=== PATIENT | male | born 1950 | race African-American/Black ===

== ENCOUNTER 2016-10-24 18:29 | Emergency (ER) | payer OTHER, BC ==
[2016-10-24 18:35] VITALS: BMI 34.4
--- NOTE | 2016-10-25 | PDOC ---
History of Present Illness - General Chief Complaint: Blurry Vision Stated Complaint: BLURRY VISION Time Seen by Provider: 10/24/16 23:29 History Source: Patient Exam Limitations: No Limitations - History of Present Illness Initial Comments: 10/24/16 23:55 66yo Male patient w/ PmHx: HTN, HLD presents to ED c/o blurred vision in left eye. Patient states symptoms began 4 hours ago. Denies h/a, weakness, CP, Abd pain, n/v/d, fever, back pain, or any other complaints at this time. Last eye exam: reported. Reports wearing corrective lens use for reading. Timing/Duration: 4-6 hours Severity: moderate Modifying Factors: worse with: cold therapy, eating, immobilization, medication , movement, rest, other Associated Symptoms: denies: denies symptoms, chest pain, cough, diaphoresis, fever/chills, headaches, loss of appetite, malaise, nausea/vomiting, rash, seizure, shortness of breath, syncope, weakness, other NIH Stroke Scale - Last Known Well Date/Time & Onset Date Last Known Well: 10/24/16 Time Last Known Well: 16:00 - Initial Evaluation Level of consciousness: Alert Ask patient the month and their age: Answers both correctly Ask patient to open & close eyes; make fist and let go: Obeys both correctly Best gaze (horizontal eye movement): Normal Visual field testing: Partial hemianopia Facial paresis (Show teeth/raise eyebrows/close eyes tight): Normal symmetrical movement Motor Function: Left Arm: Normal Motor Function: Right Arm: Normal (extends arm 90 (or 45) degrees for 10 seconds without drift Motor Function: Left Leg: Normal (extends leg 30 degrees for 5 seconds without drift) Motor Function: Right Leg: Normal (extends leg 30 degrees for 5 seconds without drift) Limb Ataxia: No ataxia Sensory(Use pinprick test arms,legs,trunk,face/side to side): Normal Best language (Describe picture, name items, read sentences): No Aphasia Dysarthria (read several words): Normal articulation Extinction and Inattention: No abnormality - Total Score NIH Stroke Scale Score: 1 Past History - Travel Traveled outside of the country in the last 30 days: No Close contact w/someone who was outside of country & ill: No - Past Medical History Allergies/Adverse Reactions: Allergies Allergy/AdvReac Type Severity Reaction Status Date / Time No Known Allergies Allergy Verified 10/24/16 18:35 HTN: Yes Hypercholesterolemia: Yes - Psycho/Social/Smoking Cessation Hx Suicidal Ideation: No Smoking History: Former smoker Have you smoked in the past 12 months: No Information on smoking cessation initiated: No Hx Alcohol Use: No Drug/Substance Use Hx: No Review of Systems - Review of Systems Able to Perform ROS?: Yes Is the patient limited Syriac proficient: No Constitutional: No: Chills, Fever HEENTM: Yes: Blurred Vision. No: Eye Pain, Tearing, Double Vision, Ear Pain Respiratory: No: Cough, Shortness of Breath, Stridor, Wheezing Cardiac (ROS): No: Chest Pain, Edema, Irregular Heart Rate, Lightheadedness, Palpitations, Chest Tightness ABD/GI: No: Constipated, Diarrhea, Nausea, Vomiting : No: Dysuria, Flank Pain, Hematuria Musculoskeletal: No: Back Pain Integumentary: No: Bruising, Erythema, Rash, Sweating Neurological: No: Headache, Numbness, Seizure, Tremors, Weakness, Ataxia, Dizziness All Other Systems: Reviewed and Negative *Physical Exam - Vital Signs Last Vital Signs Temp Pulse Resp BP Pulse Ox 98.0 F 83 18 150/89 94 L 10/24/16 18:31 10/24/16 18:31 10/24/16 18:31 10/24/16 18:31 10/24/16 18:31 - Physical Exam General Appearance: Yes: Nourished, Appropriately Dressed. No: Apparent Distress, Mild Distress, Moderate Distress, Severe Distress HEENT: positive: EOMI, Normal ENT Inspection, Normal Voice, Symmetrical, TMs Normal, Pharynx Normal, Other (Peripheral eye examination reveal loss of visual field. No eye redness, pain, swelling, discharge or drainage noted. Lt eye sluggish in reacting to light.). negative: ROSALINDA (Left eye sluggish), Pale Conjunctivae, Photophobia, TM Bulging, TM Dull, TM Erythema Neck: positive: Trachea midline, Supple. negative: Lymphadenopathy (R), Lymphadenopathy (L) Respiratory/Chest: positive: Lungs Clear, Normal Breath Sounds. negative: Chest Tender, Respiratory Distress, Accessory Muscle Use, Labored Respiration, Rapid RR Cardiovascular: positive: Regular Rhythm, Regular Rate. negative: Edema, JVD, Murmur Gastrointestinal/Abdominal: positive: Normal Bowel Sounds, Soft. negative: Distended, Guarding, Rebound, Tenderness Musculoskeletal: positive: Normal Inspection. negative: CVA Tenderness Extremity: positive: Normal Capillary Refill, Normal Inspection, Normal Range of Motion Integumentary: positive: Normal Color, Dry, Warm Neurologic: positive: transmitter supervisor II-XII NML intact, Fully Oriented, Alert, Normal Mood/ Affect, Normal Response, Motor Strength 11/17 ED Treatment Course - LABORATORY CBC & Chemistry Diagram: 10/25/16 00:40 10/25/16 00:32 - RADIOLOGY Radiology Studies Ordered: Category Date Time Status HEAD CT WITHOUT CONTRAST [CT] Stat CT Scan 10/24/16 23:43 Ordered *DC/Admit/Observation/Transfer Diagnosis at time of Disposition: Vision blurred - Discharge Dispostion Disposition: HOME Condition at time of disposition: Stable Admit: No - Patient Instructions Printed Discharge Instructions: DI for Visual Field Disturbances Additional Instructions: FOLLOW UP WITH YOUR EXPERIMENTAL TECHNICIAN TOMORROW OR WITHIN 48 HOURS DISCUSSED. RETURN IF SYMPTOMS WORSEN OR ANY CONCERN FOR FURTHER EVALUATION. Print Language: TELUGU
--- NOTE | 2016-10-25 00:19 | PDOC ---
*Physical Exam - Vital Signs Last Vital Signs Temp Pulse Resp BP Pulse Ox 98.0 F 83 18 150/89 94 L 10/24/16 18:31 10/24/16 18:31 10/24/16 18:31 10/24/16 18:31 10/24/16 18:31 ED Treatment Course - LABORATORY CBC & Chemistry Diagram: 10/25/16 00:40 10/25/16 00:32 Medical Decision Making - Medical Decision Making 10/25/16 00:19 agree with care from RITO Little *DC/Admit/Observation/Transfer Diagnosis at time of Disposition: Vision blurred - Discharge Dispostion Disposition: HOME Condition at time of disposition: Stable - Referrals Referrals: Ricky Jennings MD [Primary Care Provider] - - Patient Instructions Printed Discharge Instructions: DI for Visual Field Disturbances Additional Instructions: FOLLOW UP WITH YOUR LANGUAGE PATH TOMORROW OR WITHIN 48 HOURS DISCUSSED. RETURN IF SYMPTOMS WORSEN OR ANY CONCERN FOR FURTHER EVALUATION. Print Language: LAO
[2016-10-25 00:56] LABS: BASOPHIL 1.3 % (0-2.0); EOSINOPHIL 5.3 % (0-4.5); MCH 29.2 pg (25.7-33.7); MCHC 32.6 g/dl (32.0-35.9); MEAN CELL VOLUME 89.8 fl (80-96); NEUTROPHILS 49.5 % (42.8-82.8); PLATELET COUNT 211 K/MM3 (134-434); RDW 14.3 % (11.9-15.9); WHITE BLOOD COUNT 5.3 K/mm3 (4.0-10.0)
[2016-10-25 00:57] LABS: URINE APPEARANCE CLEAR; URINE BILIRUBIN NEGATIVE (NEGATIVE); URINE BLOOD NEGATIVE (NEGATIVE); URINE COLOR YELLOW; URINE GLUCOSE (UA) NEGATIVE (NEGATIVE); URINE KETONE NEGATIVE (NEGATIVE); URINE LEUK ESTERASE NEGATIVE (NEGATIVE); URINE NITRITE NEGATIVE (NEGATIVE); URINE PROTEIN NEGATIVE (NEGATIVE); URINE UROBILINOGEN 2.0 E.U/dl E.U./dl (0.2-1.0)
[2016-10-25 01:38] LABS: INR 1.08 (0.82-1.09); PROTHROMBIN TIME (PATIENT) 11.9 SEC (9.98-11.88)
[2016-10-25 01:41] LABS: ACTIVATED PTT 27.9 SECONDS (26.9-34.4)
[2016-10-25 01:48] LABS: ALBUMIN 3.9 g/dl (3.4-5.0); ALK PHOS 100 U/L (45-117); ANION GAP 10 (8-16); BILIRUBIN,TOTAL 0.3 mg/dL (0.2-1.0); CO2 27 mmol/L (21-32); COCKROFT - GAULT 115.4; CREATININE 0.9 mg/dL (0.7-1.3); GLUCOSE,RANDOM 95 mg/dL (74-106); SGOT/AST 18 U/L (15-37); SGPT/ALT 23 U/L (12-78); TOT PROT 7.3 g/dl (6.4-8.2)
[2016-10-25 06:50] VITALS: BP 140/80; PULSE 79; TEMP 98.2
== END 2016-10-25 04:03 | disposition home or self-care (01) ==
LOC: JER 18:29
DX: H53.8 Other visual disturbances (principal); I10 Essential (primary) hypertension; E78.00 Pure hypercholesterolemia, unspecified
CPT/HCPCS: 36415; 70470-TC; 80053; 81003; 85025; 85610; 85730; 99283-25

== ENCOUNTER 2016-11-30 10:12 | Day surgery (SDC) | payer OTHER, BC ==
[2016-11-29 15:15] VITALS: BMI 32.4
[2016-11-30] MEDS ORDERED: MIDAZOLAM HCL 2 MG/2 ML SINGLE DOSE VIAL ONE (11:24)
[2016-11-30] MEDS ORDERED: ACETAMINOPHEN 500 MG TABLET (FP) ONE (11:26)
[2016-11-30 12:31] VITALS: TEMP 97.9
--- NOTE | 2016-11-30 12:53 | PN ---
Progress Note (short form) - Note Progress Note: ANIA performed today to evaluate for cardiac source of embolism given recent ocular CVA. Full report to follow. Pt tolerated procedure well without complication. No cardiac source of embolism identified. 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 Pt will follow up as outpatient.
[2016-11-30 13:57] VITALS: BP 103/71; PULSE 65
== END 2016-11-30 13:25 | disposition home or self-care (01) ==
LOC: JASU-ENDO 10:12 → JOR 10:12 → JASU-ENDO 13:25
PROVIDERS: ATTEND Internal Medicine Cardiovascular Disease
PROC: B246ZZ4 Ultrasonography of Right and Left Heart, Transesophageal (ICD-10-PCS; principal; 2016-11-30 11:30)
DX: I63.9 Cerebral infarction, unspecified (principal)
CPT/HCPCS: 93312; 93325

== ENCOUNTER 2019-03-05 14:21 | Inpatient (IN) | payer OTHER, BC ==
--- NOTE | 2019-03-05 14:29 | PDOC ---
Rapid Medical Evaluation Chief Complaint: Urinary Problem Time Seen by Provider: 03/05/19 14:26 Medical Evaluation: Allergies Allergy/AdvReac Type Severity Reaction Status Date / Time No Known Allergies Allergy Verified 10/24/16 18:35 03/05/19 14:26 I have performed a brief in-person evaluation of this patient. The patient presents with a chief complaint of:h/o HPL, HTN on benica report low BPs which he told PCP and reduce dosage of meds. pt also report hematuria. Pt also report dysuria. Denies dizziness, lightheadedness, fever, chills, N/V Pertinent physical exam findings: A&O x 3 in NAD I have ordered the following: UA, UCx, CBC, CMP The patient will proceed to the ED for further evaluation. Discharge Disposition - Diagnosis Hematuria Qualifiers: Hematuria type: unspecified type Qualified Code(s): R31.9 - Hematuria, unspecified Hypotension Qualifiers: Hypotension type: unspecified hypotension type Qualified Code(s): I95.9 - Hypotension, unspecified - Discharge Dispostion Condition at time of disposition: Stable - Referrals - Patient Instructions - Post Discharge Activity
[2019-03-05 15:29] LABS: HEMATOCRIT 31.7 % (35.4-49); MCH 27.2 pg (25.7-33.7); MCHC 31.6 g/dl (32.0-35.9); MEAN PLT VOLUME 6.7 fl (7.5-11.1); PLATELET COUNT 778 K/MM3 (134-434); RBC 3.69 M/mm3 (4.00-5.60); RDW 15.1 % (11.9-15.9); WHITE BLOOD COUNT 13.4 K/mm3 (4.0-10.0)
[2019-03-05 15:58] LABS: ALBUMIN 2.7 g/dl (3.4-5.0); BILIRUBIN,TOTAL 0.5 mg/dL (0.2-1); BLOOD UREA NITROGEN 42.6 mg/dL (7-18); CALCIUM 9.7 mg/dL (8.5-10.1); CREATININE 2.6 mg/dL (0.55-1.3); TOT PROT 7.7 g/dl (6.4-8.2)
[2019-03-05] MEDS ORDERED: SODIUM CHLORIDE 1,000 ML IV STA (17:12)
[2019-03-05] MEDS ORDERED: SODIUM CHLORIDE 0.9% 500 ML INFUS.BAG IV ONE (17:16)
--- NOTE | 2019-03-05 17:16 | PDOC ---
History of Present Illness - General Chief Complaint: Urinary Problem Stated Complaint: BLOOD IN URINE, LOW BP Time Seen by Provider: 03/05/19 14:26 - History of Present Illness Initial Comments: 03/05/19 17:08 68 y/o M with hx of CVA,HTN and bilateral renal cyst presents to the ED with 3- 4 days of dysuria and hematuria .He denies straining during voiding but sees blood in the toilet bowl.He has had no associated abdominal pain,penile discharge/pain /recent sexual activity, fevers, chills or sick contacts. Past History - Past Medical History Allergies/Adverse Reactions: Allergies Allergy/AdvReac Type Severity Reaction Status Date / Time No Known Allergies Allergy Verified 03/05/19 14:28 Home Medications: Ambulatory Orders Metoprolol Succinate [Toprol XL -] 25 mg PO DAILY 10/25/16 Rosuvastatin Calcium [Crestor] 10 mg PO HS 10/25/16 Aspirin Coated [Ecotrin -] 325 mg PO DAILY 11/29/16 Olmesartan Medoxomil [Benicar -] 20 mg PO DAILY 11/29/16 Amlodipine Besylate [Norvasc -] 5 mg PO DAILY 03/05/19 Hydrochlorothiazide 12.5 mg PO DAILY 03/05/19 COPD: No Diabetes: Yes (BORDERLINE - NO MED) HTN: Yes Hypercholesterolemia: Yes - Surgical History Abdominal Surgery: Yes (REPAIR OF UMBILICAL HERNIA) Orthopedic Surgery: Yes (LT KNEE ARTHROSCOPY) - Immunization History Immunization Up to Date: No - Suicide/Smoking/Psychosocial Hx Smoking History: Never smoked Have you smoked in the past 12 months: No If you are a former smoker, when did you quit?: 35 YRS AGO Information on smoking cessation initiated: No Hx Alcohol Use: No Drug/Substance Use Hx: No Review of Systems - Review of Systems Constitutional: No: Chills, Fever HEENTM: No: Eye Pain, Blurred Vision Respiratory: No: Cough, Shortness of Breath Cardiac (ROS): No: Chest Pain ABD/GI: No: Abdominal Distended : Yes: Symptoms Reported Musculoskeletal: No: Back Pain Neurological: No: Headache, Numbness *Physical Exam - Vital Signs Last Vital Signs Temp Pulse Resp BP Pulse Ox 97.8 F 78 17 89/55 L 100 03/05/19 14:26 03/05/19 14:26 03/05/19 14:26 03/05/19 14:26 03/05/19 14:26 - Physical Exam General Appearance: Yes: Nourished, Appropriately Dressed. No: Apparent Distress HEENT: positive: Normal Voice. negative: Scleral Icterus (R), Scleral Icterus ( L) Neck: positive: Trachea midline, Supple. negative: Tender Respiratory/Chest: positive: Lungs Clear, Normal Breath Sounds. negative: Chest Tender, Respiratory Distress, Accessory Muscle Use, Rales, Wheezing Cardiovascular: positive: Regular Rhythm, Regular Rate, S1, S2. negative: Edema , JVD Gastrointestinal/Abdominal: positive: Normal Bowel Sounds, Soft, Protuberent. negative: Tenderness Extremity: positive: Normal Capillary Refill, Normal Inspection, Normal Range of Motion Integumentary: positive: Normal Color, Dry, Warm Neurologic: positive: Fully Oriented, Alert, Normal Mood/Affect ED Treatment Course - LABORATORY CBC & Chemistry Diagram: 03/18/19 07:45 03/18/19 07:45 - ADDITIONAL ORDERS Additional order review: Laboratory Results 03/05/19 15:12 Sodium 137 Potassium 5.0 Chloride 102 Carbon Dioxide 22 Anion Gap 13 BUN 42.6 H Creatinine 2.6 H Est GFR (CKD-EPI)AfAm 28.31 Est GFR (CKD-EPI)NonAf 24.42 Random Glucose 100 Calcium 9.7 Total Bilirubin 0.5 AST 22 ALT 37 Alkaline Phosphatase 105 Total Protein 7.7 Albumin 2.7 L 03/05/19 15:12 RBC 3.69 L MCV 86.0 MCHC 31.6 L RDW 15.1 MPV 6.7 L D Medical Decision Making - Medical Decision Making 03/05/19 17:41 68 y/o M with hx of CVA & HTN presents to the ED with 3-4 days of dysuria and hematuria hepatic cysts, 4.1 cm right renal cyst and 2.1 cm left renal cyst which had increased from 2.8cm and 2.1 cm respectively Labs/Imaging/Meds UA, urine culture, cbc, cmp, renal u/s,cxr, EKG Meds: IV normal saline UA: Calcium oxalate stones, 3+blood, 3+ leukocyte esterase cbc: elevated white count 13.2 EKG: NSR, normal EKG no ST elevations vent rate 67 bpm VA interval 178ms qrs duration 86ms qt/qtc 412/435ms CXR Renal U/S In comparison to an MRI Study of 04/25/2018 interval development of mild left hydronephrosis is noted CT evaluation is suggested there is no right hydronephrosis A nonspecific 1.5 cm right renal lower pole intracortical enhancing lesion described on the 2018 MRI study cannot be appreciated on sonography. Correlation with follow up contrast enhanced multiphase MRI/CT is suggested bilateral simple cortical cysts Admitting team (keerthi) microblogged at 6:43 pm 03/05/19 19:18 03/07/19 02:11 *DC/Admit/Observation/Transfer Diagnosis at time of Disposition: Hematuria Qualifiers: Hematuria type: unspecified type Qualified Code(s): R31.9 - Hematuria, unspecified Hypotension Qualifiers: Hypotension type: unspecified hypotension type Qualified Code(s): I95.9 - Hypotension, unspecified - Discharge Dispostion Condition at time of disposition: Stable - Referrals - Patient Instructions - Post Discharge Activity
--- NOTE | 2019-03-05 18:04 | PDOC ---
Documentation entered by Madeline Stahl SCRIBE, acting as scribe for David Tom MD. David Tom MD: This documentation has been prepared by the Maribeth peña Sammi, SCRIBE, under my direction and personally reviewed by me in its entirety. I confirm that the documentation accurately reflects all work, treatment, procedures, and medical decision making performed by me. Attending Attestation - Resident Resident Name: Nelson Carrera - ED Attending Attestation I have performed the following: I have examined & evaluated the patient, The case was reviewed & discussed with the resident, I agree w/resident's findings & plan, Exceptions are as noted - HPI HPI: 03/05/19 17:13 The patient is a 68 year old male, with a significant PMH of HTN, HLD, CVA, who presents to the emergency department for evaluation of several days of dysuria and hematuria. Pt states that his urine has been darker than usual. Denies any bright red blood or clots. Pt also notes that he has slight burning towards the end of his stream. Denies abdominal pain. Denies flank pain. Denies F/C. He denies any other complaints at this time. Allergies: NKA PCP: Ricky Jennings Cardio: Cruz - Physicial Exam PE: 03/05/19 18:06 "GENERAL: Awake, alert, and fully oriented, in no acute distress. HEAD: No signs of trauma EYES: PERRLA, EOMI, sclera anicteric, conjunctiva clear ENT: Auricles normal inspection, hearing grossly normal, nares patent, oropharynx clear without exudates. Moist mucosa NECK: Nontender, no stepoffs, Normal ROM, supple, no lymphadenopathy, JVD, or masses LUNGS: Breath sounds equal, clear to auscultation bilaterally. No wheezes, and no crackles HEART: Regular rate and rhythm, normal S1 and S2, no murmurs, rubs or gallops ABDOMEN: Soft, nontender, normoactive bowel sounds. No guarding, no rebound. No masses EXTREMITIES: Normal range of motion, no edema. No clubbing or cyanosis. No cords, erythema, or tenderness NEUROLOGICAL: Cranial nerves II through XII intact. 5/5 strength and sensation in all extremities, Normal speech, normal gait, normal cerebellar function SKIN: Warm, Dry, normal turgor, no rashes or lesions noted. - Medical Decision Making 03/05/19 18:06 68 M with dysuria and possible hematuria. Pt noted to be hypotensive in ED but states that his BP has been running low recently. He is having his BP meds titrated by his primary. Denies lightheadedness/dizziness/CP/SOB/palpitations. - Labs, UA - IV fluids 03/05/19 18:11 Labs notable for SANDY, Cr 1.0 -> 2.6 Likely pre-renal Will continue IVF 03/05/19 18:34 UA consistent with UTI Will start ceftriaxone
[2019-03-05 18:23] LABS: URINE APPEARANCE TURBID; URINE COLOR DK YELLOW
[2019-03-05 18:24] LABS: URINE BILIRUBIN SMALL (NEGATIVE); URINE GLUCOSE (UA) NEGATIVE (NEGATIVE); URINE KETONE TRACE (NEGATIVE)
[2019-03-05 18:25] LABS: URINE PROTEIN 2+ (NEGATIVE)
[2019-03-05 18:26] LABS: URINE LEUK ESTERASE 3+ (NEGATIVE); URINE NITRITE NEGATIVE (NEGATIVE)
[2019-03-05 18:28] LABS: EPI CELLS 92.6 /HPF (0-5/HPF); HYALINE CASTS 883.57 /lpf (0-8); URINE BACTERIA 429.4 /hpf (NEGATIVE); URINE RBC 106.3 /hpf (0-4); URINE WBC 4809.8 /hpf (0-5)
[2019-03-05 18:29] LABS: URINE CRYSTALS CALCIUM OXALATE /hpf
[2019-03-05] MEDS ORDERED: CEFTRIAXONE 1,000 MG in DEXTROSE 5%-WATER - 50 ML IVPB ONE (18:34)
[2019-03-05] MEDS ORDERED: CEFTRIAXONE 1 GM/50 ML BAG ONE (19:06)
[2019-03-05] MEDS ORDERED: ACETAMINOPHEN 325 MG TABLET (FP) PO PRN (19:35)
[2019-03-05] MEDS ORDERED: ACETAMINOPHEN 325 MG TABLET (FP) ONE (20:09)
--- NOTE | 2019-03-05 20:19 | HP ---
CHIEF COMPLAINT: Dysuria PCP: Dr. Ricky Jennings Inorganic Chemical Technician: Dr. Somers Wireless Sales Associate: Dr. Flores GI: Dr. Hidalgo HISTORY OF PRESENT ILLNESS: Patient is a 68 year old male with PMH of HTN, HLD, CVA who presents with 3 days of dysuria. Pt complains of burning with urination and associated urgency and frequency. He has also noticed darker discoloration in his urine but denies bright red blood or clots. Pt denies fever, chills, SOB, abd or flank pain. He denies a hx of frequent UTIs or stones. Pt follows up regularly with his PCP Dr. Jennings and states that his BP has recently been low. His Benicar medication was decreased from 40mg to 20mg one week ago, but he has continued all other medications as prescribed. No lightheadedness or palpitations. Pt states that his last colonoscopy and EGD were in Jun/Jul and were unremarkable. He denies any changes in stool, other than occasional constipation at baseline, but no melena, diarrhea, or bloating. He also recently saw his user experience architect, Dr. Flroes and carotid US and EKGs were normal. ER course was notable for: (1) UA: turbid, trace ketones, 3+ blood, 3+ LE, 4809 WBC, 883 casts, calcium oxalate crystals, 429.4 bacteria (2) Given 1gm ceftriaxone (3) Recent Travel: denies PAST MEDICAL HISTORY: HTN HLD CVA (2 years ago, residual L vision loss) PAST SURGICAL HISTORY: Umbilical hernia repair Knee repair Social History: Smoking: quit 40 years ago Alcohol: denies Drugs: denies Family History: Grandmother: Aortic aneurysm Grandfather: [place] Allergies No Known Allergies Allergy (Verified 03/05/19 14:28) HOME MEDICATIONS: Home Medications Medication Instructions Recorded Metoprolol Succinate [Toprol XL -] 25 mg PO DAILY 10/25/16 Rosuvastatin Calcium [Crestor] 10 mg PO HS 10/25/16 Aspirin Coated [Ecotrin -] 325 mg PO DAILY 11/29/16 Olmesartan Medoxomil [Benicar -] 20 mg PO DAILY 11/29/16 Amlodipine Besylate [Norvasc -] 5 mg PO DAILY 03/05/19 Hydrochlorothiazide 12.5 mg PO DAILY 03/05/19 REVIEW OF SYSTEMS CONSTITUTIONAL: Absent: fever, chills, diaphoresis, generalized weakness, malaise, loss of appetite, weight change HEENT: Absent: rhinorrhea, nasal congestion, throat pain, throat swelling, difficulty swallowing, mouth swelling, ear pain, eye pain, visual changes CARDIOVASCULAR: Absent: chest pain, syncope, palpitations, irregular heart rate, lightheadedness , peripheral edema RESPIRATORY: Absent: cough, shortness of breath, dyspnea with exertion, orthopnea, wheezing, stridor, hemoptysis GASTROINTESTINAL: Absent: abdominal pain, abdominal distension, nausea, vomiting, diarrhea, constipation, melena, hematochezia GENITOURINARY: dysuria, frequency, urgency, hematuria Absent: hesitancy, flank pain, genital pain MUSCULOSKELETAL: Absent: myalgia, arthralgia, joint swelling, back pain, neck pain SKIN: Absent: rash, itching, pallor HEMATOLOGIC/IMMUNOLOGIC: Absent: easy bleeding, easy bruising, lymphadenopathy, frequent infections ENDOCRINE: Absent: unexplained weight gain, unexplained weight loss, heat intolerance, cold intolerance NEUROLOGIC: Absent: headache, focal weakness or paresthesias, dizziness, unsteady gait, seizure, mental status changes, bladder or bowel incontinence PSYCHIATRIC: Absent: anxiety, depression, suicidal or homicidal ideation, hallucinations. PHYSICAL EXAMINATION Vital Signs - 24 hr 03/05/19 03/05/19 14:26 19:05 Temperature 97.8 F Pulse Rate 78 Respiratory 17 Rate Blood Pressure 89/55 L Blood Pressure 91/58 L [Left Arm] O2 Sat by Pulse 100 Oximetry (%) GENERAL: Awake, alert, and fully oriented, in no acute distress. HEAD: Normal with no signs of trauma. EYES: Pupils equal, round and reactive to light, extraocular movements intact, sclera anicteric, conjunctiva clear. No lid lag. EARS, NOSE, THROAT: Ears normal, nares patent, oropharynx clear without exudates. Moist mucous membranes. NECK: Normal range of motion, supple without lymphadenopathy, JVD, or masses. LUNGS: Breath sounds equal, clear to auscultation bilaterally. No wheezes, and no crackles. No accessory muscle use. HEART: Regular rate and rhythm, normal S1 and S2 without murmur, rub or gallop. ABDOMEN: Soft, nontender, not distended, normoactive bowel sounds, no guarding, no rebound, no masses. No hepatomegaly or splenomegaly. MUSCULOSKELETAL: Normal range of motion at all joints. No bony deformities or tenderness. No CVA tenderness. UPPER EXTREMITIES: 2+ pulses, warm, well-perfused. No cyanosis. No clubbing. No peripheral edema. LOWER EXTREMITIES: 2+ pulses, warm, well-perfused. No calf tenderness. No peripheral edema. NEUROLOGICAL: Cranial nerves II-XII intact, but L vision loss. Normal speech. Normal gait. PSYCHIATRIC: Cooperative. Good eye contact. Appropriate mood and affect. SKIN: Warm, dry, normal turgor, no rashes or lesions noted, normal capillary refill. Laboratory Results - last 24 hr CBC, BMP 03/05/19 15:12 03/05/19 15:12 Urine Test Results Urine Color Dk yellow Urine Appearance Turbid Urine pH 5.0 (5.0-8.0) Ur Specific [place] 1.025 (1.010-1.035) Urine Protein 2+ (NEGATIVE) H Urine Glucose (UA) Negative (NEGATIVE) Urine Ketones Trace (NEGATIVE) H Urine Blood 3+ (NEGATIVE) H Urine Nitrite Negative (NEGATIVE) Urine Bilirubin Small (NEGATIVE) Ur Leukocyte Esterase 3+ (NEGATIVE) H ASSESSMENT/PLAN: Patient is a 68 year old male with PMH of HTN, HLD, CVA who presents with 3 days of dysuria. Pt complains of burning with urination and associated urgency and frequency. #UTI UA: turbid, trace ketones, 3+ blood, 3+ LE, 4809 WBC, 883 casts, calcium oxalate crystals, 429.4 bacteria Renal US: mild L hydronephrosis. Nonspecific 1.5cm R renal lower pole intracortical enhancing lesion cannot be appreciated CTAP: left psoas is thickened, multiple gas bubbles within, possibly infected or due to blood. Distal L ureter is engulfed in psoas, possibly causing renal obstruction. Sigmoid diverticulosis. Giving 1gm ceftriaxone, as well as 1gm merepenem for anaerobic coverage in case infection coming from diverticulitis F/u urology (Dr. Huizar), gen-surg (Dr. Reyes), and ID (Dr. Flores) consultation F/u urine cx Tylenol prn for pain/fever #SANDY BUN: 42.6, Cr: 2.6. Per pt, baseline Cr is poor (do not have definitive values) Likely post-obstructive, given mild L hydronephrosis vs CKD, will obtain prior values from PCP Hydrate with IV NS @ 100ml/hr Cont to monitor kidney function #Normocytic anemia Hgb: 10, Hct: 31.7 Iron: 29, TIBC: 158, ferritin: 1238, likely 2/2 chronic disease vs iron deficiency Pt reports recent colonoscopy and EGD have been unremarkable. Given CT findings, should obtain official results of these studies in am. Denies any lightheadedness, headaches, SOB, vomiting, changes in stool F/u stool guaiac #Thrombocytosis Platelet count: 778 Likely 2/2 infection and acute/sub-acute anemia F/u blood smear #HTN BP: 93/62, pt reports he has recently had low BP at baseline Benicare medication is being titrated down by PCP Dr. Jennings Pt takes norvasc 5mg daily, hydrochlorothiazide 12.5mg daily, toprol 25mg daily. Will hold meds due to hypotension/borderline sepsis #HLD Cont home meds: crestor 10mg HS #FEN IV NS @ 100ml/hr NPO, pending surgery and urology consultations #DVT ppx SCDs #Dispo Monitor on med-surg Visit type - Emergency Visit Emergency Visit: Yes ED Registration Date: 03/05/19 Care time: The patient presented to the Emergency Department on the above date and was hospitalized for further evaluation of their emergent condition. - New Patient This patient is new to me today: Yes Date on this admission: 03/10/19 - Critical Care Critical Care patient: No ATTENDING PHYSICIAN STATEMENT I saw and evaluated the patient. I reviewed the resident's note and discussed the case with the resident. I agree with the resident's findings and plan as documented. SUBJECTIVE: OBJECTIVE: ASSESSMENT AND PLAN:
[2019-03-05] MEDS: SODIUM CHLORIDE 1,000 ML IV SCH (21:00)
--- NOTE | 2019-03-05 23:31 | PN ---
Teaching Attending Note Name of Resident: Izabella Herman ATTENDING PHYSICIAN STATEMENT I saw and evaluated the patient. I reviewed the resident's note and discussed the case with the resident. I agree with the resident's findings and plan as documented. Seen and examined; please refer to resident note for further historical information. Briefly, this is a 68 y/o male presenting with suspected sepsis from likely urinary source; mild L-hydro noted on renal US with calcium oxalate crystals increases suspicion of obstructing stone. CT pending. R-sided renal finding on prior MRI not seen today. Initially borderline BP but without tachycardia; non-toxic appearing. No initial lactate. Monitored on the floor on medicine service; baseline CKD stated with Cr unknown. 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 If obstructive uropathy with infection will consult ID given abx choice and uro for potential procedure. VS, labs, imaging reviewed NAD, AAO, resting in bed Some L-sided discomfort to fist percussion, nondistended, +BS RRR s1/2 no mgr Lungs CTAB, w/ sym exp CN2-12 wnl, no fnd Normal mood, appropriate behavior EKG reviewed, imaging discussed per HPI. ASSESSMENT AND PLAN: Patient presents with dysuria/hematuria found to have L-hydro on intial US with elevated creatinine; CT pending. On meropenem, elucidating baseline Cr. He has either hemorrhagic cystitis vs. obstructing stone vs. other. # UTI [+UA w/ dysuria, hematuria (r/o infected stone vs. hemorrhagic cystitis, etc.) ] # L-sided hydro, r/o obstructive uropathy # CKD vs. SANDY 2/2 obstruction vs. other # Hx CVA
[2019-03-05] MEDS ORDERED: MEROPENEM 1 GM in DEXTROSE 5%-WATER 100 ML IVPB ONE (23:42)
[2019-03-06] MEDS ORDERED: MEROPENEM 1 GM VIAL (RESTRICTED TO ID) IVPB ONE (00:27)
[2019-03-06] MEDS ORDERED: DEXTROSE 5%-WATER 100 ML IVPB ONE (00:27)
[2019-03-06 02:28] LABS: IRON SERUM 20 ug/dL (50-175); TOTAL IRON BINDING CAPACITY 150 ug/dL (250-450)
[2019-03-06 06:21] LABS: BASO % 0.9 % (0-2.0); EOS % 2.3 % (0-4.5); HEMATOCRIT 25.3 % (35.4-49); HEMOGLOBIN 8.2 GM/dL (11.7-16.9); LYMPH % 14.5 % (8-40); MCH 27.8 pg (25.7-33.7); MCHC 32.4 g/dl (32.0-35.9); MEAN CELL VOLUME 85.8 fl (80-96); MEAN PLT VOLUME 6.3 fl (7.5-11.1); MONO % 7.2 % (3.8-10.2); NEUT % 75.1 % (42.8-82.8); PLATELET COUNT 557 K/MM3 (134-434); RBC 2.95 M/mm3 (4.00-5.60); WHITE BLOOD COUNT 9.2 K/mm3 (4.0-10.0)
[2019-03-06 06:27] LABS: INR 1.38 (0.83-1.09); PROTHROMBIN TIME (PATIENT) 16.3 SEC (9.7-13.0)
[2019-03-06 07:36] LABS: ALBUMIN 1.9 g/dl (3.4-5.0); BILIRUBIN,TOTAL 0.3 mg/dL (0.2-1); BLOOD UREA NITROGEN 39.8 mg/dL (7-18); CALCIUM 8.3 mg/dL (8.5-10.1); POTASSIUM 4.5 mmol/L (3.5-5.1); TOT PROT 5.7 g/dl (6.4-8.2)
--- NOTE | 2019-03-06 10:06 | PN ---
Physical Exam: SUBJECTIVE: Patient seen and examined. He has no complaints. OBJECTIVE: Vital Signs Period Temp Pulse Resp BP Sys/Zuniga Pulse Ox Last 24 Hr 97.8 F-97.9 F 62-78 16-18 89-117/55-63 100 GENERAL: The patient is awake, alert, and fully oriented, in no acute distress. LUNGS: Breath sounds equal, clear to auscultation bilaterally, no wheezes, no crackles, no accessory muscle use. HEART: Regular rate and rhythm, S1, S2 without murmur, rub or gallop. ABDOMEN: Soft, nontender, nondistended, normoactive bowel sounds, no guarding, no rebound, no hepatosplenomegaly, no masses. BACK: No CVA tenderness. EXTREMITIES: 2+ pulses, warm, well-perfused, no edema. Laboratory Results - last 24 hr 03/05/19 03/05/19 03/05/19 15:12 15:12 16:51 WBC 13.4 H RBC 3.69 L Hgb 10.0 L Hct 31.7 L D MCV 86.0 MCH 27.2 MCHC 31.6 L RDW 15.1 Plt Count 778 H D MPV 6.7 L D Absolute Neuts (auto) Neutrophils % Lymphocytes % Monocytes % Eosinophils % Basophils % Nucleated RBC % PT with INR INR Sodium 137 Potassium 5.0 Chloride 102 Carbon Dioxide 22 Anion Gap 13 BUN 42.6 H Creatinine 2.6 H Est GFR (CKD-EPI)AfAm 28.31 Est GFR (CKD-EPI)NonAf 24.42 Random Glucose 100 Lactic Acid Calcium 9.7 Iron 29 L TIBC 158 L Iron Saturation 18 Unsaturated IBC 129 L Ferritin 1238.0 H Total Bilirubin 0.5 AST 22 ALT 37 Alkaline Phosphatase 105 Total Protein 7.7 Albumin 2.7 L Urine Color Dk yellow Urine Appearance Turbid Urine pH 5.0 Ur Specific [place] 1.025 Urine Protein 2+ H Urine Glucose (UA) Negative Urine Ketones Trace H Urine Blood 3+ H Urine Nitrite Negative Urine Bilirubin Small Urine Urobilinogen 1.0 Ur Leukocyte Esterase 3+ H Urine WBC (Auto) 4809.8 Urine RBC (Auto) 106.3 Urine Casts (Auto) 883.57 U Epithel Cells (Auto) 92.6 U Sm Round Cell (Auto) Wbc present Urine Crystals (Auto) Calcium oxalate Urine Bacteria (Auto) 429.4 Blood Type Antibody Screen 03/05/19 03/05/19 03/06/19 22:30 22:30 06:00 WBC 9.2 RBC 2.95 L Hgb 8.2 L Hct 25.3 L D MCV 85.8 MCH 27.8 MCHC 32.4 RDW 15.0 Plt Count 557 H D MPV 6.3 L Absolute Neuts (auto) 6.9 Neutrophils % 75.1 D Lymphocytes % 14.5 D Monocytes % 7.2 Eosinophils % 2.3 Basophils % 0.9 Nucleated RBC % 0 PT with INR INR Sodium Potassium Chloride Carbon Dioxide Anion Gap BUN Creatinine Est GFR (CKD-EPI)AfAm Est GFR (CKD-EPI)NonAf Random Glucose Lactic Acid Calcium Iron 20 L TIBC 150 L Iron Saturation 13 L Unsaturated IBC 130 L Ferritin 1030.5 H Total Bilirubin AST ALT Alkaline Phosphatase Total Protein Albumin Urine Color Urine Appearance Urine pH Ur Specific [place] Urine Protein Urine Glucose (UA) Urine Ketones Urine Blood Urine Nitrite Urine Bilirubin Urine Urobilinogen Ur Leukocyte Esterase Urine WBC (Auto) Urine RBC (Auto) Urine Casts (Auto) U Epithel Cells (Auto) U Sm Round Cell (Auto) Urine Crystals (Auto) Urine Bacteria (Auto) Blood Type Antibody Screen 03/06/19 03/06/19 03/06/19 06:00 06:00 06:00 WBC RBC Hgb Hct MCV MCH MCHC RDW Plt Count MPV Absolute Neuts (auto) Neutrophils % Lymphocytes % Monocytes % Eosinophils % Basophils % Nucleated RBC % PT with INR 16.30 H INR 1.38 H Sodium 141 Potassium 4.5 Chloride 109 H Carbon Dioxide 24 Anion Gap 8 BUN 39.8 H Creatinine 2.0 H Est GFR (CKD-EPI)AfAm 38.87 Est GFR (CKD-EPI)NonAf 33.54 Random Glucose 81 Lactic Acid 0.8 Calcium 8.3 L Iron TIBC Iron Saturation Unsaturated IBC Ferritin Total Bilirubin 0.3 AST 13 L ALT 24 Alkaline Phosphatase 77 Total Protein 5.7 L Albumin 1.9 L Urine Color Urine Appearance Urine pH Ur Specific [place] Urine Protein Urine Glucose (UA) Urine Ketones Urine Blood Urine Nitrite Urine Bilirubin Urine Urobilinogen Ur Leukocyte Esterase Urine WBC (Auto) Urine RBC (Auto) Urine Casts (Auto) U Epithel Cells (Auto) U Sm Round Cell (Auto) Urine Crystals (Auto) Urine Bacteria (Auto) Blood Type Antibody Screen 03/06/19 06:00 WBC RBC Hgb Hct MCV MCH MCHC RDW Plt Count MPV Absolute Neuts (auto) Neutrophils % Lymphocytes % Monocytes % Eosinophils % Basophils % Nucleated RBC % PT with INR INR Sodium Potassium Chloride Carbon Dioxide Anion Gap BUN Creatinine Est GFR (CKD-EPI)AfAm Est GFR (CKD-EPI)NonAf Random Glucose Lactic Acid Calcium Iron TIBC Iron Saturation Unsaturated IBC Ferritin Total Bilirubin AST ALT Alkaline Phosphatase Total Protein Albumin Urine Color Urine Appearance Urine pH Ur Specific [place] Urine Protein Urine Glucose (UA) Urine Ketones Urine Blood Urine Nitrite Urine Bilirubin Urine Urobilinogen Ur Leukocyte Esterase Urine WBC (Auto) Urine RBC (Auto) Urine Casts (Auto) U Epithel Cells (Auto) U Sm Round Cell (Auto) Urine Crystals (Auto) Urine Bacteria (Auto) Blood Type A POSITIVE Antibody Screen Negative Active Medications Generic Name Dose Route Start Last Admin Trade Name Freq PRN Reason Stop Dose Admin Acetaminophen 650 mg 03/05/19 19:35 03/05/19 20:15 Tylenol - PO 650 mg Q4H PRN Administration PAIN OR FEVER Sodium Chloride 1,000 mls @ 125 mls/hr 03/05/19 19:15 03/05/19 21:00 Normal Saline - IV 125 mls/hr ASDIR JESSIKA Administration ASSESSMENT/PLAN: This is a 68 year old man with a history of HTN, hyperlipidemia, CVA who presented to the ED with dysuria, urinary urgency and frequency. 1. UTI - Continue ceftriaxone - Follow-up urine culture 2. Acute kidney injury - Likely secondary to left ureter obstruction with left hydronephrosis - IV fluid - Monitor BUN, creatinine - Urology consult 3. Anemia - Iron studies consistent with chronic illness - Monitor hemoglobin 4. Thrombocytosis - Likely reactive - Improving - Monitor platelet count 5. HTN - BP meds held secondary to hypotension 6. Hyperlipidemia 7. 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 - New Patient This patient is new to me today: Yes Date on this admission: 03/06/19 - Critical Care Critical Care patient: No - Discharge Referral Referred to [facility] No
--- NOTE | 2019-03-06 10:35 | CON.GU ---
Consult Consult Specialty:: Reason for Consultation:: L hydronephrosis - History of Present Illness Chief Complaint: dysuria History of Present Illness: 68 year old male with PMH of HTN, HLD, CVA who presents with 3 days of dysuria. Pt complains of burning with urination and associated urgency and frequency. He has also noticed darker discoloration in his urine but denies bright red blood or clots. Pt denies fever, chills, SOB, abd or flank pain. He denies a hx of frequent UTIs or stones. Pt follows up regularly with his PCP Dr. Jennings and states that his BP has recently been low. His Benicar medication was decreased from 40mg to 20mg one week ago, but he has continued all other medications as prescribed. No lightheadedness or palpitations. Pt states that his last colonoscopy and EGD were in Jun/Jul and were unremarkable. He denies any changes in stool, other than occasional constipation at baseline, but no melena, diarrhea, or bloating. 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 Flores and carotid US and EKGs were normal. cons req ER course was notable for: (1) UA: turbid, trace ketones, 3+ blood, 3+ LE, 4809 WBC, 883 casts, calcium oxalate crystals, 429.4 bacteria (2) Given 1gm ceftriaxone (3) Recent Travel: denies PAST MEDICAL HISTORY: HTN HLD CVA (2 years ago, residual L vision loss) PAST SURGICAL HISTORY: Umbilical hernia repair Knee repair Social History: Smoking: quit 40 years ago Alcohol: denies Drugs: denies Family History: Grandmother: Aortic aneurysm Grandfather: [place] Allergies No Known Allergies Allergy (Verified 03/05/19 14:28) - History Source History Provided By: Patient, Medical Record Limitations to Obtaining History: No Limitations - Alcohol/Substance Use Hx Alcohol Use: No - Smoking History Smoking history: Never smoked Have you smoked in the past 12 months: No If you are a former smoker, when did you quit?: 35 YRS AGO Home Medications - Allergies Allergies/Adverse Reactions: Allergies Allergy/AdvReac Type Severity Reaction Status Date / Time No Known Allergies Allergy Verified 03/05/19 14:28 - Home Medications Home Medications: Ambulatory Orders Metoprolol Succinate [Toprol XL -] 25 mg PO DAILY 10/25/16 Rosuvastatin Calcium [Crestor] 10 mg PO HS 10/25/16 Aspirin Coated [Ecotrin -] 325 mg PO DAILY 11/29/16 Olmesartan Medoxomil [Benicar -] 20 mg PO DAILY 11/29/16 Amlodipine Besylate [Norvasc -] 5 mg PO DAILY 03/05/19 Hydrochlorothiazide 12.5 mg PO DAILY 03/05/19 Review of Systems - Review of Systems Genitourinary: reports: Dysuria, Flank Pain Physical Exam- Vital Signs: Vital Signs Temperature 97.8 F 03/06/19 05:25 Pulse Rate 62 03/06/19 05:25 Respiratory Rate 18 03/06/19 05:25 Blood Pressure 94/58 L 03/06/19 05:25 O2 Sat by Pulse Oximetry (%) 100 03/05/19 14:26 Labs: CBC, BMP 03/06/19 06:00 03/06/19 06:00 Imaging - Results Cat Scan: Report Reviewed Ultrasound: Report Reviewed Problem List - Problems (1) Hydronephrosis Assessment/Plan: cystoscopy, cystogram, L JJ stent insertion Code(s): N13.30 - UNSPECIFIED HYDRONEPHROSIS (2) UTI (urinary tract infection) Assessment/Plan: ur cx, iv rocephin Code(s): N39.0 - URINARY TRACT INFECTION, SITE NOT SPECIFIED (3) Psoas abscess, left Code(s): K68.12 - PSOAS MUSCLE ABSCESS (4) Leukocytosis Code(s): D72.829 - ELEVATED WHITE BLOOD CELL COUNT, UNSPECIFIED (5) SANDY (acute kidney injury) Code(s): N17.9 - ACUTE KIDNEY FAILURE, UNSPECIFIED
--- NOTE | 2019-03-06 11:39 | EKG ---
Test Reason : Blood Pressure : / mmHG Vent. Rate : 067 BPM Atrial Rate : 067 BPM P-R Int : 178 ms QRS Dur : 086 ms QT Int : 412 ms P-R-T Axes : 035 002 017 degrees QTc Int : 435 ms NORMAL SINUS RHYTHM NORMAL ECG WHEN COMPARED WITH ECG OF 15-MAY-2011 02:12, T WAVE AMPLITUDE HAS INCREASED IN ANTEROLATERAL LEADS Confirmed by GARFIELD ELIAS MD ([id number]) on 03/06/2019 11:38:49 AM Referred By: Confirmed By:GARFIELD ELIAS MD
--- NOTE | 2019-03-06 13:13 | PN ---
Progress Note (short form) - Note Progress Note: ID CONSULT DICTATED
--- NOTE | 2019-03-06 13:15 | PN ---
Progress Note (short form) - Note Progress Note: ID CONSULT DICTATED ? L PSOAS ABSCESS R/O COLO-VESICULAR FISTULA OBTAIN BC AWAIT URINE C/S EMPIRIC ZOSYN
[2019-03-06] MEDS ORDERED: PIPERACILLIN/TAZOBACTAM 3.375 GM VIAL IVPB ONE ×2 (13:40→17:36)
[2019-03-06] MEDS ORDERED: DEXTROSE 5%-WATER - 50 ML IVPB ONE ×2 (13:40→17:36)
[2019-03-06] MEDS: PIPERACILLIN/TAZOB 3.375 GM 3.375 GM in DEXTROSE 5%-WATER - 50 ML IVPB SCH ×2 (14:18→17:46)
--- NOTE | 2019-03-06 15:19 | CONSULT ---
<Sinan Hilliard - Last Filed: 03/06/19 14:48> - Consultation REQUESTING PROVIDER: CONSULT REQUEST: We have been asked to surgically evaluate this patient for possible left psoas collection/diverticulitis PCP:Dax Monroe MD HISTORY OF PRESENT ILLNESS: 68yo M presented to the ED with complaints of dysuria and hematuria x [address] days[address] Pt had a [address] scan to rule out kidney stones and was found to have findings of Left hydronephrosis, with possible diveriticulitis/psoas collection. Pt denies any history of recurrent UTIs. Pt had diverticulitis in 2010 that was treated with abx. Pt states his last colonoscopy was with Dr. Hidalgo in April that only showed diveriticuli. Pt denies n/v, fever, chills, diarrhea, constipation. PMHx: HTN, HLD PSHx: Umbilical hernia repair 1990s Home Medications Medication Instructions Recorded Metoprolol Succinate [Toprol XL -] 25 mg PO DAILY 10/25/16 Rosuvastatin Calcium [Crestor] 10 mg PO HS 10/25/16 Aspirin Coated [Ecotrin -] 325 mg PO DAILY 11/29/16 Olmesartan Medoxomil [Benicar -] 20 mg PO DAILY 11/29/16 Amlodipine Besylate [Norvasc -] 5 mg PO DAILY 03/05/19 Hydrochlorothiazide 12.5 mg PO DAILY 03/05/19 Allergies Allergy/AdvReac Type Severity Reaction Status Date / Time No Known Allergies Allergy Verified 03/05/19 14:28 PHYSICAL EXAM: GENERAL: Awake, alert, and fully oriented, in no acute distress. HEAD: Normal with no signs of trauma. EYES: PERRL, sclera anicteric, conjunctiva clear. NECK: Normal ROM, supple without lymphadenopathy, JVD, or masses. LUNGS: Clear to auscultation bilat anteriorly. No wheezes, and no crackles. No accessory muscle use. HEART: Regular rate and rhythm. No murmurs ABDOMEN: Soft, nontender, not distended, normoactive bowel sounds, no guarding, no rebound, no masses. No organomegaly. MUSCULOSKELETAL: Normal ROM at all joints. No bony deformities or tenderness. No CVA tenderness. NEUROLOGICAL: Normal speech, gait not observed. PSYCH: Cooperative. Good eye contact. Appropriate mood and affect. SKIN: Warm, dry, normal turgor, no rashes or lesions noted. Vital Signs Temperature 97.8 F 03/06/19 05:25 Pulse Rate 62 03/06/19 05:25 Respiratory Rate 18 03/06/19 05:25 Blood Pressure 94/58 L 03/06/19 05:25 O2 Sat by Pulse Oximetry (%) 100 03/05/19 14:26 Lab Results WBC 9.2 K/mm3 (4.0-10.0) 03/06/19 06:00 RBC 2.95 M/mm3 (4.00-5.60) L 03/06/19 06:00 Hgb 8.2 GM/dL (11.7-16.9) L 03/06/19 06:00 Hct 25.3 % (35.4-49) L D 03/06/19 06:00 MCV 85.8 fl (80-96) 03/06/19 06:00 MCHC 32.4 g/dl (32.0-35.9) 03/06/19 06:00 RDW 15.0 % (11.9-15.9) 03/06/19 06:00 Plt Count 557 K/MM3 (134-434) H D 03/06/19 06:00 Sodium 141 mmol/L (136-145) 03/06/19 06:00 Potassium 4.5 mmol/L (3.5-5.1) 03/06/19 06:00 Chloride 109 mmol/L (98-107) H 03/06/19 06:00 Carbon Dioxide 24 mmol/L (21-32) 03/06/19 06:00 Anion Gap 8 MMOL/L (8-16) 03/06/19 06:00 BUN 39.8 mg/dL (7-18) H 03/06/19 06:00 Creatinine 2.0 mg/dL (0.55-1.3) H 03/06/19 06:00 Random Glucose 81 mg/dL (74-106) 03/06/19 06:00 Calcium 8.3 mg/dL (8.5-10.1) L 03/06/19 06:00 Blood Type A POSITIVE 03/06/19 06:00 Antibody Screen Negative 03/06/19 06:00 INR 1.38 (0.83-1.09) H 03/06/19 06:00 Problem List - Problems (1) Psoas abscess, left Assessment/Plan: Plan -pt does not appear clinically to have diveriticulitis -no acute general surgical interventions at this time, would recommend pt be rescanned with CT abd/pel with po and IV contrast for psoas collection diverticulitis -recommend pt be evaluated by urology for hydronephrosis and elevated creat Pt seen and discussed with Dr. Reyes who agrees with plan Code(s): K68.12 - PSOAS MUSCLE ABSCESS <David Reyes - Last Filed: 03/12/19 09:24> - Consultation REQUESTING PROVIDER: CONSULT REQUEST: We have been asked to surgically evaluate this patient for ( specify). PCP:Karen Zuniga MD HISTORY OF PRESENT ILLNESS: PMHx: PSHx: Home Medications Medication Instructions Recorded Metoprolol Succinate [Toprol XL -] 25 mg PO DAILY 10/25/16 Rosuvastatin Calcium [Crestor] 10 mg PO HS 10/25/16 Aspirin Coated [Ecotrin -] 325 mg PO DAILY 11/29/16 Olmesartan Medoxomil [Benicar -] 20 mg PO DAILY 11/29/16 Amlodipine Besylate [Norvasc -] 5 mg PO DAILY 03/05/19 Hydrochlorothiazide 12.5 mg PO DAILY 03/05/19 Allergies Allergy/AdvReac Type Severity Reaction Status Date / Time No Known Allergies Allergy Verified 03/05/19 14:28 REVIEW OF SYSTEMS: CONSTITUTIONAL: Absent: fever, chills, diaphoresis, generalized weakness, malaise, loss of appetite, weight change CARDIOVASCULAR: Absent: chest pain, syncope, palpitations, irregular heart rate, lightheadedness , peripheral edema RESPIRATORY: Absent: cough, shortness of breath, dyspnea with exertion, wheezing, stridor, hemoptysis GASTROINTESTINAL: Absent: abdominal pain, abdominal distension, nausea, vomiting, diarrhea, constipation, melena, hematochezia GENITOURINARY: Absent: dysuria, frequency, urgency, hesitancy, hematuria, flank pain, genital pain MUSCULOSKELETAL: Absent: myalgia, arthralgia, joint swelling, back pain, neck pain SKIN: Absent: rash, itching, pallor HEMATOLOGIC/IMMUNOLOGIC: Absent: easy bleeding, easy bruising, lymphadenopathy NEUROLOGIC: Absent: headache, focal weakness, paresthesias, dizziness, unsteady gait, seizure, mental status changes, bladder or bowel incontinence PSYCHIATRIC: Absent: anxiety, depression, suicidal or homicidal ideation, hallucinations. PHYSICAL EXAM: GENERAL: Awake, alert, and fully oriented, in no acute distress. HEAD: Normal with no signs of trauma. EYES: PERRL, sclera anicteric, conjunctiva clear. NECK: Normal ROM, supple without lymphadenopathy, JVD, or masses. LUNGS: Clear to auscultation bilat anteriorly. No wheezes, and no crackles. No accessory muscle use. HEART: Regular rate and rhythm. No murmurs ABDOMEN: Soft, nontender, not distended, normoactive bowel sounds, no guarding, no rebound, no masses. No organomegaly. MUSCULOSKELETAL: Normal ROM at all joints. No bony deformities or tenderness. No CVA tenderness. UPPER EXTREMITIES: 2+ pulses, warm, well-perfused. No cyanosis. Cap refill <2 seconds. No peripheral edema. LOWER EXTREMITIES: 2+ pulses, warm, well-perfused. No calf tenderness. No peripheral edema. NEUROLOGICAL: Normal speech, gait not observed. PSYCH: Cooperative. Good eye contact. Appropriate mood and affect. SKIN: Warm, dry, normal turgor, no rashes or lesions noted. Vital Signs Temperature 98.2 F 03/12/19 07:21 Pulse Rate 68 03/12/19 07:21 Respiratory Rate 20 03/12/19 07:21 Blood Pressure 142/88 03/12/19 07:21 O2 Sat by Pulse Oximetry (%) 96 03/11/19 21:00 Lab Results WBC 8.5 K/mm3 (4.0-10.0) 03/12/19 06:00 RBC 3.19 M/mm3 (4.00-5.60) L 03/12/19 06:00 Hgb 8.9 GM/dL (11.7-16.9) L 03/12/19 06:00 Hct 27.1 % (35.4-49) L 03/12/19 06:00 MCV 85.0 fl (80-96) 03/12/19 06:00 MCHC 32.8 g/dl (32.0-35.9) 03/12/19 06:00 RDW 15.5 % (11.9-15.9) 03/12/19 06:00 Plt Count 379 K/MM3 (134-434) 03/12/19 06:00 Sodium 143 mmol/L (136-145) 03/12/19 06:00 Potassium 3.9 mmol/L (3.5-5.1) 03/12/19 06:00 Chloride 114 mmol/L (98-107) H 03/12/19 06:00 Carbon Dioxide 22 mmol/L (21-32) 03/12/19 06:00 Anion Gap 7 MMOL/L (8-16) L 03/12/19 06:00 BUN 7.9 mg/dL (7-18) 03/12/19 06:00 Creatinine 1.2 mg/dL (0.55-1.3) 03/12/19 06:00 Random Glucose 100 mg/dL (74-106) 03/12/19 06:00 Calcium 8.2 mg/dL (8.5-10.1) L 03/12/19 06:00 Blood Type A POSITIVE 03/06/19 06:00 Antibody Screen Negative 03/06/19 06:00 INR 1.38 (0.83-1.09) H 03/06/19 06:00 r/o colovesical fistula from low grade smoldering diveticulitis. Will f/u as w/u proceeds. David Reyes MD FACS
[2019-03-06] MEDS: SODIUM CHLORIDE 1,000 ML IV SCH (17:46)
[2019-03-06] MEDS ORDERED: PT OWN MED DRAWER 7, Y5N ONE (21:43)
[2019-03-06] MEDS ORDERED: ROSUVASTATIN CA 10 MG TABLET (FP) PO SCH (22:00)
[2019-03-06] MEDS ORDERED: CEFTRIAXONE 1 GM in DEXTROSE 5%-WATER - 50 ML IVPB SCH (22:15)
[2019-03-07] MEDS ORDERED: PIPERACILLIN/TAZOBACTAM 3.375 GM VIAL IVPB ONE ×3 (01:07→17:25)
[2019-03-07] MEDS ORDERED: DEXTROSE 5%-WATER - 50 ML IVPB ONE ×3 (01:08→17:25)
[2019-03-07] MEDS: PIPERACILLIN/TAZOB 3.375 GM 3.375 GM in DEXTROSE 5%-WATER - 50 ML IVPB SCH ×3 (01:15→17:29)
[2019-03-07] MEDS: SODIUM CHLORIDE 1,000 ML IV SCH ×4 (03:10→23:38)
[2019-03-07 09:32] LABS: BASO % 0.7 % (0-2.0); HEMATOCRIT 26.7 % (35.4-49); HEMOGLOBIN 8.8 GM/dL (11.7-16.9); LYMPH % 14.2 % (8-40); MCH 28.3 pg (25.7-33.7); MCHC 32.7 g/dl (32.0-35.9); MEAN CELL VOLUME 86.6 fl (80-96); MEAN PLT VOLUME 6.5 fl (7.5-11.1); MONO % 4.5 % (3.8-10.2); NEUT % 79.6 % (42.8-82.8); PLATELET COUNT 596 K/MM3 (134-434); RBC 3.09 M/mm3 (4.00-5.60); WHITE BLOOD COUNT 10.1 K/mm3 (4.0-10.0)
[2019-03-07 10:15] LABS: BLOOD UREA NITROGEN 28.2 mg/dL (7-18); CALCIUM 8.6 mg/dL (8.5-10.1); CREATININE 1.6 mg/dL (0.55-1.3); POTASSIUM 4.9 mmol/L (3.5-5.1)
--- NOTE | 2019-03-07 10:51 | CONS ---
DATE OF CONSULTATION: DATE OF DICTATION: 03/07/2019 CHIEF COMPLAINT: The patient is a 68-year-old male evaluated for possible left psoas abscess. HISTORY: The patient was admitted to the hospital on March 05, 2019. He had presented with complaints of dysuria and hematuria as well as dark urine with sediment. In the emergency room he was noted to be hypotensive. A CAT scan of the abdomen and pelvis was performed and showed evidence of a left hydronephrosis with enlarged left psoas muscle. There were diverticula in the proximal mid sigmoid colon with thickening, felt to be chronic in nature, as well as asymmetric enlargement of the left psoas muscle with air bubbles, moderate left hydronephrosis, as well as air in the urinary bladder. He denied any associated fever or chills. No nausea, vomiting. There were reports of change in bowel habits. , who was present at the time of the examination, reports that he has had an approximately 20- to 25-pound weight loss over the past several months. PAST MEDICAL HISTORY: Positive for hypertension, hyperlipidemia, stroke, diverticulosis. PAST SURGICAL HISTORY: Status post umbilical hernia. ALLERGIES: No known allergies. MEDICATIONS: Toprol, Crestor, Ecotrin, Benicar, Norvasc, hydrochlorothiazide. SOCIAL HISTORY: Resides at home with his significant other. He is a nonsmoker, nondrinker. REVIEW OF SYSTEMS: Neurologic: No loss of consciousness, seizure activity, focal weakness. Cardiac: Negative chest pain or palpitations. Respiratory: Negative cough or sputum production. Gastrointestinal: As per HPI. Genitourinary: As per HPI. LABORATORY DATA: White count on admission 13.4, hematocrit 25.3, platelet count 557, creatinine 2.0. Urinalysis 4809 white cells. PHYSICAL EXAMINATION: General: He is awake and alert. He is not acutely toxic appearing. Vital Signs: Temperature 97.8, blood pressure 94/58, pulse 62, regular. Respirations 18 per minute. HEENT: Sclerae are anicteric. Poor dentition. Cardiovascular: Heart sounds S1, S2. Lungs: Clear. Abdomen: Soft. No tenderness elicited. No mass, rebound, or rigidity. Extremities: Negative for edema. IMPRESSION: 1. Urinary tract infection, possible sepsis secondary to urinary tract infection. 2. Rule out left psoas abscess. 3. Rule out colovesical fistula. 4. Leukocytosis. PLAN: Await sepsis workup, surgical evaluation, empiric antibiotic coverage with Zosyn. CAT scans reviewed with radiologist. Will follow. Thank you for the kind referral. OLIVE COLBY M.D. [id number]
--- NOTE | 2019-03-07 12:44 | PN ---
Progress Note, Physician History of Present Illness: AWAKE, ALERT SUPINE IN BED NO C/O ABDOMINAL PAIN NO N/V REPORTS NORMAL BM TODAY NO C/O DYSURIA/ HEMATURIA REPORTS URINE CLEAR NO F/C URINE C/S GNR BC (-) - Current Medication List Current Medications: Active Medications Acetaminophen (Tylenol -) 650 mg PO Q4H PRN PRN Reason: PAIN OR FEVER Last Admin: 03/05/19 20:15 Dose: 650 mg Sodium Chloride (Normal Saline -) 1,000 mls @ 125 mls/hr IV ASDIR JESSIKA Last Admin: 03/07/19 11:46 Dose: 125 mls/hr Piperacillin Sod/Tazobactam (Sod 3.375 gm/ Dextrose) 50 mls @ 100 mls/hr IVPB Q8H-IV JESSIKA; Protocol Last Admin: 03/07/19 09:47 Dose: 100 mls/hr - Objective Vital Signs: Vital Signs Temperature 97.8 F 03/07/19 05:37 Pulse Rate 78 03/07/19 05:37 Respiratory Rate 16 03/07/19 05:37 Blood Pressure 95/55 L 03/07/19 05:37 O2 Sat by Pulse Oximetry (%) 99 03/06/19 21:00 Constitutional: Yes: No Distress Eyes: Yes: Conjunctiva Clear Cardiovascular: Yes: Regular Rate and Rhythm, S1, S2 Respiratory: Yes: Diminished Gastrointestinal: Yes: Normal Bowel Sounds, Soft. No: Tenderness Edema: No Labs: CBC, BMP 03/07/19 08:44 03/07/19 08:44 INR, PTT INR 1.38 (0.83-1.09) H 03/06/19 06:00 Assessment/Plan ? L PSOAS ABSCESS UTI R/O COLOVESICULAR FISTULA CONTINUE ZOSYN CT SCAN A/P WITH CONTRAST
--- NOTE | 2019-03-07 14:40 | OP ---
Operative Note - Note: Operative Date: 03/07/19 Pre-Operative Diagnosis: L hydronephrosis, r/o colovesical fistula, SANDY Operation: cystoscopy, cystogram, L JJ stent insertion Findings: + colovesical fistula, mod L hydro Post-Operative Diagnosis: Other (same, + colovesical fistula) Surgeon: Fercho Huizar Anesthesiologist/FORMULATOR: Jose C Quezada Anesthesia: General Estimated Blood Loss (mls): 0 Drains & Tubes with Location: 6 fr 26 cm L JJ stent, 18 fr manzo Operative Report Dictated: Yes
[2019-03-07] MEDS ORDERED: PROPOFOL 20 ML ONE (15:00)
[2019-03-07] MEDS ORDERED: MIDAZOLAM HCL 2 MG/2 ML SINGLE DOSE VIAL ONE (15:01)
[2019-03-07] MEDS ORDERED: DEXAMETHASONE SOD PHOSPHATE 4 MG/1 ML VIAL ONE (15:04)
[2019-03-07] MEDS ORDERED: LIDOCAINE HCL/PF 2% SDV 5ML VIAL ONE (15:04)
[2019-03-07] MEDS ORDERED: ACETAMINOPHEN 325 MG TABLET (FP) PO PRN ×2 (16:12→18:55)
--- NOTE | 2019-03-07 17:12 | OP ---
DATE OF OPERATION: 03/07/2019 PREOPERATIVE DIAGNOSIS: Left hydronephrosis, rule out colovesical fistula. POSTOPERATIVE DIAGNOSIS: Left hydronephrosis, colovesical fistula. PROCEDURE: Cystoscopy, cystogram, left double J stent insertion. SURGEON: Fercho Huizar MD MAINSPRING STRIP GAUGER: None. ANESTHESIA: General via laryngeal mask. ANESTHESIOLOGIST: Aftab Contreras MD SPECIMENS: None. CULTURES: None. DRAINS: 18-Togolese Oconnor catheter. ESTIMATED BLOOD LOSS: None. COMPLICATIONS: None. DESCRIPTION OF PROCEDURE: Patient was brought into the operating room. Placed on the operating room table in supine position. After administration of general anesthesia via laryngeal mask, intravenous antibiotics had been administered on the floor. Patient was placed in dorsal lithotomy position. Genitals and perineum were prepped and draped in the usual sterile manner, 22-Togolese cystoscope was inserted into the bladder under direct vision. Anterior and posterior urethras were normal. The bladder was entered and thoroughly inspected. There were no foreign bodies, tumors, or stones. There was an inflammatory, elevated lesion in the left anterolateral anterior wall of the bladder consistent with a fistula. Both ureteral orifices were in their usual location with clear efflux bilaterally. The cystogram was done injecting approximately 400 mL of contrast into the bladder. No extravasation was demonstrated. Post evacuation film also demonstrated no extravasation of contrast. Now left ureteral orifice was cannulated with a 0.038 guidewire, advanced to the level of the left renal pelvis under fluoroscopic and direct visual guidance. The open-ended ureteral catheter was inserted. Retrograde pyelogram was done. Demonstrated moderate left hydronephrosis. The open-ended ureteral catheter was removed, and the guidewire was reinserted, and a 6-Togolese 26-cm left double J stent was inserted over the guidewire under direct visual and fluoroscopic guidance leaving 1 coil in the upper pole calyx and 1 coil in the bladder. The bladder was left full and the cystoscope removed. An 18-Togolese Oconnor catheter was placed. He tolerated the procedure well and transferred to the recovery room in stable condition. PLAN: We will discuss with Dr. Reyes treatment of this colovesical fistula. We will continue IV antibiotics and Oconnor catheter. Amadeo [id number]
--- NOTE | 2019-03-07 18:42 | PN ---
Physical Exam: SUBJECTIVE: Patient seen and examined. He has no complaints. OBJECTIVE: Vital Signs Period Temp Pulse Resp BP Sys/Zuniga Pulse Ox Last 24 Hr 97.5 F-98.1 F 62-92 16-20 93-188/52-71 97-100 GENERAL: The patient is awake, alert, and fully oriented, in no acute distress. LUNGS: Breath sounds equal, clear to auscultation bilaterally, no wheezes, no crackles, no accessory muscle use. HEART: Regular rate and rhythm, S1, S2 without murmur, rub or gallop. ABDOMEN: Soft, nontender, nondistended, normoactive bowel sounds, no guarding, no rebound, no hepatosplenomegaly, no masses. EXTREMITIES: 2+ pulses, warm, well-perfused, no edema. Laboratory Results - last 24 hr 03/07/19 03/07/19 08:44 08:44 WBC 10.1 H RBC 3.09 L Hgb 8.8 L Hct 26.7 L MCV 86.6 MCH 28.3 MCHC 32.7 RDW 15.0 Plt Count 596 H MPV 6.5 L Absolute Neuts (auto) 8.0 Neutrophils % 79.6 Lymphocytes % 14.2 Monocytes % 4.5 Eosinophils % 1.0 Basophils % 0.7 Nucleated RBC % 0 Sodium 142 Potassium 4.9 Chloride 110 H Carbon Dioxide 20 L Anion Gap 12 BUN 28.2 H Creatinine 1.6 H Est GFR (CKD-EPI)AfAm 50.91 Est GFR (CKD-EPI)NonAf 43.93 Random Glucose 57 L Calcium 8.6 Active Medications Generic Name Dose Route Start Last Admin Trade Name Pedro Pabloq PRN Reason Stop Dose Admin Acetaminophen 650 mg 03/07/19 16:12 Tylenol - PO Q4H PRN PAIN OR FEVER Sodium Chloride 1,000 mls @ 125 mls/hr 03/07/19 16:12 03/07/19 17:30 Normal Saline - IV Not Given ASDIR JESSIKA Piperacillin Sod/Tazobactam 50 mls @ 100 mls/hr 03/07/19 18:00 Sod 3.375 gm/ Dextrose IVPB Q8H-IV JESSIKA Protocol Piperacillin Sod/Tazobactam 50 mls @ 100 mls/hr 03/07/19 18:00 03/07/19 17:29 Sod 3.375 gm/ Dextrose IVPB 03/08/19 10:29 100 mls/hr Q8H-IV JESSIKA Administration ASSESSMENT/PLAN: This is a 68 year old man with a history of HTN, hyperlipidemia, CVA who presented to the ED with dysuria, urinary urgency and frequency. 1. UTI, left colovesical fistula - Ceftriaxone changed to Zosyn - s/p cystoscopy, cystogram, L JJ stent insertion today - Follow-up urine culture - Surgery consult 2. Acute kidney injury - Likely secondary to left ureter obstruction with left hydronephrosis - Improving with IV fluid - s/p left ureteral stent placement today - Continue IV fluid - Continue to monitor BUN, creatinine 3. Anemia - Iron studies consistent with chronic illness - Hemoglobin stable 4. Thrombocytosis - Likely reactive - Continue to monitor platelet count 5. HTN - BP meds held secondary to hypotension 6. Hyperlipidemia 7. 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 - New Patient This patient is new to me today: No - Critical Care Critical Care patient: No - Discharge Referral Referred to [facility] Med P.C.: No
[2019-03-08] MEDS ORDERED: PIPERACILLIN/TAZOBACTAM 3.375 GM VIAL IVPB ONE ×3 (00:14→10:03)
[2019-03-08] MEDS ORDERED: DEXTROSE 5%-WATER - 50 ML IVPB ONE ×3 (00:14→10:04)
[2019-03-08] MEDS: oxyCODONE HCL 5 MG TABLET PO PRN (00:19)
[2019-03-08] MEDS: PIPERACILLIN/TAZOB 3.375 GM 3.375 GM in DEXTROSE 5%-WATER - 50 ML IVPB SCH ×2 (01:27→10:31)
[2019-03-08 07:31] LABS: BASO % 0.2 % (0-2.0); HEMOGLOBIN 7.9 GM/dL (11.7-16.9); LYMPH % 6.7 % (8-40); MCH 28.2 pg (25.7-33.7); MCHC 32.9 g/dl (32.0-35.9); MEAN CELL VOLUME 85.6 fl (80-96); MEAN PLT VOLUME 6.6 fl (7.5-11.1); MONO % 1.8 % (3.8-10.2); NEUT % 91.3 % (42.8-82.8); PLATELET COUNT 537 K/MM3 (134-434); RDW 14.7 % (11.9-15.9); WHITE BLOOD COUNT 11.4 K/mm3 (4.0-10.0)
[2019-03-08 07:32] LABS: BLOOD UREA NITROGEN 25.2 mg/dL (7-18); CALCIUM 8.3 mg/dL (8.5-10.1); CREATININE 1.6 mg/dL (0.55-1.3); POTASSIUM 5.3 mmol/L (3.5-5.1)
--- NOTE | 2019-03-08 10:33 | PN ---
Progress Note (short form) - Note Progress Note: Attending Surgeon No c/o; tolerating diet VSS AF abdo-soft and non tender manzo output noted IMP: diverticulitis w/colovesical fistula and left hydro s/p cysto and JJ stent PLAN: Case d/w Dr. Huizar; Urology; will plan for sigmoid colon resection +/- colostomy and related procedures in the upcoming week; in the interim continue present tx. David Reyes MD FACS
[2019-03-08 11:05] LABS: ANISOCYTOSIS 0; MACROCYTOSIS 0; PLATELET ESTIMATE INCREASED
--- NOTE | 2019-03-08 13:02 | CON.GI ---
Consult Consult Specialty:: GI Referred by:: Fercho Huizar/ Ricky Jennings - History of Present Illness History of Present Illness: 69 y/o male was admitted because of left hydronephrosis. He under went cytoscopy and was noted to have a colovesical fistula. Ct noted too have thickening in the proximal sigmnoid colon. His last colonosocpy was in 2018 which revealed a sigmoid stricture. The biopsy of the stricture was negative. He denies abdominal pain, change in bowel habits, nor rectal pain - Past Medical History Hepatobiliary: Yes: Other (pancreatic cyst,patient being followed by Dr Tadeo) - Alcohol/Substance Use Hx Alcohol Use: No - Smoking History Smoking history: Never smoked Have you smoked in the past 12 months: No If you are a former smoker, when did you quit?: 35 YRS AGO Home Medications - Allergies Allergies/Adverse Reactions: Allergies Allergy/AdvReac Type Severity Reaction Status Date / Time No Known Allergies Allergy Verified 03/05/19 14:28 - Home Medications Home Medications: Ambulatory Orders Metoprolol Succinate [Toprol XL -] 25 mg PO DAILY 10/25/16 Rosuvastatin Calcium [Crestor] 10 mg PO HS 10/25/16 Aspirin Coated [Ecotrin -] 325 mg PO DAILY 11/29/16 Olmesartan Medoxomil [Benicar -] 20 mg PO DAILY 11/29/16 Amlodipine Besylate [Norvasc -] 5 mg PO DAILY 03/05/19 Hydrochlorothiazide 12.5 mg PO DAILY 03/05/19 Physical Exam-GI Vital Signs: Vital Signs Temperature 97.6 F 03/08/19 06:21 Pulse Rate 66 03/08/19 06:21 Respiratory Rate 18 03/08/19 06:21 Blood Pressure 113/65 03/08/19 06:21 O2 Sat by Pulse Oximetry (%) 97 03/07/19 20:46 Constitutional: Yes: Well Nourished Eyes: Yes: Conjunctiva Clear HENT: Yes: Atraumatic Neck: Yes: Supple, Thyromegaly Respiratory: Yes: CTA Bilaterally ...Palpate: Yes: Soft. No: Firm/Rigid, Guarding, Hepatomegaly, Mass, Pulsatile Mass, Splenomegaly, Tenderness Labs: CBC, BMP 03/08/19 06:00 03/08/19 06:00 INR, PTT INR 1.38 (0.83-1.09) H 03/06/19 06:00 Problem List - Problems (1) Colovesical fistula Code(s): N32.1 - VESICOINTESTINAL FISTULA (2) Anemia Assessment/Plan: secondary to hematuria R> transfuse 1 unit of PRBC Code(s): D64.9 - ANEMIA, UNSPECIFIED
--- NOTE | 2019-03-08 14:26 | PN ---
Physical Exam: SUBJECTIVE: Patient seen and examined. No complaints. OBJECTIVE: Vital Signs Period Temp Pulse Resp BP Sys/Zuniga Pulse Ox Last 24 Hr 97.5 F-98.1 F 61-92 16-20 95-188/63-71 97-100 GENERAL: The patient is awake, alert, and fully oriented, in no acute distress. LUNGS: Breath sounds equal, clear to auscultation bilaterally, no wheezes, no crackles, no accessory muscle use. HEART: Regular rate and rhythm, S1, S2 without murmur, rub or gallop. ABDOMEN: Soft, nontender, nondistended, normoactive bowel sounds, no guarding, no rebound, no hepatosplenomegaly, no masses. EXTREMITIES: 2+ pulses, warm, well-perfused, no edema. Laboratory Results - last 24 hr 03/06/19 03/06/19 03/08/19 06:00 06:00 06:00 WBC 11.4 H RBC 2.80 L Hgb 7.9 L Hct 24.0 L MCV 85.6 MCH 28.2 MCHC 32.9 RDW 14.7 Plt Count 537 H MPV 6.6 L Absolute Neuts (auto) 10.4 H Neutrophils % 91.3 H Neutrophils % (Manual) 90.0 H Band Neutrophils % 0.0 Lymphocytes % 6.7 L D Lymphocytes % (Manual) 7.0 L Monocytes % 1.8 L Monocytes % (Manual) 3 L Eosinophils % 0.0 D Eosinophils % (Manual) 0.0 Basophils % 0.2 Basophils % (Manual) 0.0 Myelocytes % (Man) 0 Promyelocytes % (Man) 0 Blast Cells % (Manual) 0 Nucleated RBC % 0 Metamyelocytes 0 Hypochromia 0 Platelet Estimate Increased Polychromasia 0 Poikilocytosis 0 Anisocytosis 0 Microcytosis 0 Macrocytosis 0 Sodium Potassium Chloride Carbon Dioxide Anion Gap BUN Creatinine Est GFR (CKD-EPI)AfAm Est GFR (CKD-EPI)NonAf Random Glucose Lactic Acid 0.8 Calcium Blood Type A POSITIVE Antibody Screen Negative Crossmatch See Detail 03/08/19 06:00 WBC RBC Hgb Hct MCV MCH MCHC RDW Plt Count MPV Absolute Neuts (auto) Neutrophils % Neutrophils % (Manual) Band Neutrophils % Lymphocytes % Lymphocytes % (Manual) Monocytes % Monocytes % (Manual) Eosinophils % Eosinophils % (Manual) Basophils % Basophils % (Manual) Myelocytes % (Man) Promyelocytes % (Man) Blast Cells % (Manual) Nucleated RBC % Metamyelocytes Hypochromia Platelet Estimate Polychromasia Poikilocytosis Anisocytosis Microcytosis Macrocytosis Sodium 141 Potassium 5.3 H Chloride 113 H Carbon Dioxide 20 L Anion Gap 8 BUN 25.2 H Creatinine 1.6 H Est GFR (CKD-EPI)AfAm 50.55 Est GFR (CKD-EPI)NonAf 43.62 Random Glucose 114 H Lactic Acid Calcium 8.3 L Blood Type Antibody Screen Crossmatch Active Medications Generic Name Dose Route Start Last Admin Trade Name Freq PRN Reason Stop Dose Admin Acetaminophen 650 mg 03/07/19 18:55 Tylenol - PO Q4H PRN PAIN LEVEL 1-5 Sodium Chloride 1,000 mls @ 125 mls/hr 03/07/19 16:12 03/07/19 23:38 Normal Saline - IV 125 mls/hr ASDIR JESSIKA Administration Piperacillin Sod/Tazobactam 50 mls @ 100 mls/hr 03/07/19 18:00 Sod 3.375 gm/ Dextrose IVPB Q8H-IV JESSIKA Protocol Oxycodone HCl 5 mg 03/07/19 18:54 03/08/19 00:19 Roxicodone - PO 5 mg Q6H PRN Administration PAIN LEVEL 6-10 ASSESSMENT/PLAN: This is a 68 year old man with a history of HTN, hyperlipidemia, CVA who presented to the ED with dysuria, urinary urgency and frequency. 1. E. coli UTI, left colovesical fistula secondary to diverticulitis - Ceftriaxone changed to Zosyn - s/p cystoscopy, cystogram, L JJ stent insertion 03/06 - Surgery consult appreciated - plan for sigmoid resection 2. Acute kidney injury - Likely secondary to left ureter obstruction with left hydronephrosis - Improving with IV fluid and left ureteral stent placement - Continue to monitor BUN, creatinine 3. Anemia - Iron studies consistent with chronic illness - Also acute component secondary to hematuria - 1 unit PRBCs to be transfused today 4. Thrombocytosis - Likely reactive - Improving - Continue to monitor platelet count 5. HTN - BP meds held secondary to hypotension 6. Hyperlipidemia 7. 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 Pancreatic cyst Visit type - Emergency Visit Emergency Visit: Yes ED Registration Date: 03/05/19 Care time: The patient presented to the Emergency Department on the above date and was hospitalized for further evaluation of their emergent condition. - New Patient This patient is new to me today: No - Critical Care Critical Care patient: No - Discharge Referral Referred to [facility] No
[2019-03-08] MEDS: SODIUM CHLORIDE 1,000 ML IV SCH (21:15)
[2019-03-09] MEDS: oxyCODONE HCL 5 MG TABLET PO PRN ×2 (00:47→23:08)
[2019-03-09 01:17] LABS: BASO % 0.5 % (0-2.0); EOS % 0.5 % (0-4.5); HEMATOCRIT 31.8 % (35.4-49); HEMOGLOBIN 10.1 GM/dL (11.7-16.9); MCH 27.3 pg (25.7-33.7); MCHC 31.8 g/dl (32.0-35.9); MEAN CELL VOLUME 85.9 fl (80-96); MEAN PLT VOLUME 6.4 fl (7.5-11.1); MONO % 4.7 % (3.8-10.2); NEUT % 83.3 % (42.8-82.8); PLATELET COUNT 603 K/MM3 (134-434); WHITE BLOOD COUNT 16.4 K/mm3 (4.0-10.0)
[2019-03-09] MEDS: SODIUM CHLORIDE 1,000 ML IV SCH ×3 (05:19→23:06)
[2019-03-09 08:57] LABS: BASO % 0.5 % (0-2.0); EOS % 0.8 % (0-4.5); HEMATOCRIT 28.6 % (35.4-49); HEMOGLOBIN 9.4 GM/dL (11.7-16.9); LYMPH % 13.3 % (8-40); MCH 27.8 pg (25.7-33.7); MCHC 32.9 g/dl (32.0-35.9); MEAN CELL VOLUME 84.7 fl (80-96); MEAN PLT VOLUME 6.6 fl (7.5-11.1); MONO % 5.5 % (3.8-10.2); NEUT % 79.9 % (42.8-82.8); PLATELET COUNT 539 K/MM3 (134-434); RBC 3.37 M/mm3 (4.00-5.60); RDW 15.2 % (11.9-15.9); WHITE BLOOD COUNT 12.2 K/mm3 (4.0-10.0)
[2019-03-09 09:10] LABS: BLOOD UREA NITROGEN 19.3 mg/dL (7-18); CALCIUM 8.4 mg/dL (8.5-10.1); CREATININE 1.4 mg/dL (0.55-1.3); POTASSIUM 4.7 mmol/L (3.5-5.1)
[2019-03-09] MEDS ORDERED: PIPERACILLIN/TAZOBACTAM 3.375 GM VIAL IVPB ONE ×2 (11:13→18:02)
[2019-03-09] MEDS ORDERED: DEXTROSE 5%-WATER - 50 ML IVPB ONE ×2 (11:13→18:02)
[2019-03-09] MEDS: PIPERACILLIN/TAZOB 3.375 GM 3.375 GM in DEXTROSE 5%-WATER - 50 ML IVPB SCH ×2 (11:15→18:31)
--- NOTE | 2019-03-09 17:01 | PN ---
Physical Exam: SUBJECTIVE: Patient seen and examined. He has no complaints. OBJECTIVE: Vital Signs Period Temp Pulse Resp BP Sys/Zuniga Pulse Ox Last 24 Hr 97.9 F-98 F 60-75 18-20 116-119/77-89 GENERAL: The patient is awake, alert, and fully oriented, in no acute distress. LUNGS: Breath sounds equal, clear to auscultation bilaterally, no wheezes, no crackles, no accessory muscle use. HEART: Regular rate and rhythm, S1, S2 without murmur, rub or gallop. ABDOMEN: Soft, nontender, nondistended, normoactive bowel sounds, no guarding, no rebound, no hepatosplenomegaly, no masses. EXTREMITIES: 2+ pulses, warm, well-perfused, no edema. Laboratory Results - last 24 hr 03/09/19 03/09/19 03/09/19 01:00 07:30 07:30 WBC 16.4 H 12.2 H RBC 3.70 L 3.37 L Hgb 10.1 L 9.4 L Hct 31.8 L D 28.6 L MCV 85.9 84.7 MCH 27.3 27.8 MCHC 31.8 L 32.9 RDW 15.0 15.2 Plt Count 603 H 539 H MPV 6.4 L 6.6 L Absolute Neuts (auto) 13.6 H 9.7 H Neutrophils % 83.3 H 79.9 Lymphocytes % 11.0 D 13.3 D Monocytes % 4.7 D 5.5 Eosinophils % 0.5 D 0.8 Basophils % 0.5 0.5 Nucleated RBC % 0 0 Sodium 144 Potassium 4.7 Chloride 114 H Carbon Dioxide 24 Anion Gap 7 L BUN 19.3 H Creatinine 1.4 H Est GFR (CKD-EPI)AfAm 59.41 Est GFR (CKD-EPI)NonAf 51.26 Random Glucose 74 Calcium 8.4 L Active Medications Generic Name Dose Route Start Last Admin Trade Name Freq PRN Reason Stop Dose Admin Acetaminophen 650 mg 03/07/19 18:55 Tylenol - PO Q4H PRN PAIN LEVEL 1-5 Sodium Chloride 1,000 mls @ 125 mls/hr 03/07/19 16:12 03/09/19 14:57 Normal Saline - IV 125 mls/hr ASDIR JESSIKA Administration Piperacillin Sod/Tazobactam 50 mls @ 100 mls/hr 03/09/19 11:00 03/09/19 11:15 Sod 3.375 gm/ Dextrose IVPB 100 mls/hr Q8H-IV JESSIKA Administration Protocol Oxycodone HCl 5 mg 03/07/19 18:54 03/09/19 00:47 Roxicodone - PO 5 mg Q6H PRN Administration PAIN LEVEL 6-10 ASSESSMENT/PLAN: This is a 69 year old man with a history of HTN, hyperlipidemia, CVA who presented to the ED with dysuria, urinary urgency and frequency. 1. E. coli UTI, left colovesical fistula secondary to diverticulitis - Continue Zosyn (day 2) - s/p cystoscopy, cystogram, L JJ stent insertion 03/06 - Maintain Oconnor catheter - Will need sigmoid resection 2. Acute kidney injury - Likely secondary to left ureter obstruction with left hydronephrosis - Improving with IV fluid and left ureteral stent placement - Continue IV fluid - Continue to monitor BUN, creatinine 3. Anemia - Iron studies consistent with chronic illness - Also acute component secondary to hematuria - Transfused 1 unit PRBCs 03/08 - Continue to monitor hgb 4. Thrombocytosis - Likely reactive - Improving - Continue to monitor platelet count 5. HTN - BP meds held secondary to hypotension 6. Hyperlipidemia 7. 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 Pancreatic cyst Visit type - Emergency Visit Emergency Visit: Yes ED Registration Date: 03/05/19 Care time: The patient presented to the Emergency Department on the above date and was hospitalized for further evaluation of their emergent condition. - New Patient This patient is new to me today: No - Critical Care Critical Care patient: No - Discharge Referral Referred to [facility] Med P.C.: No
--- NOTE | 2019-03-09 18:25 | CONSULT ---
Consult Consult Specialty:: Surgery Reason for Consultation:: colo-vesical fistula - History of Present Illness Chief Complaint: dysuria History of Present Illness: Asked to see patient by Dr. Hidalgo per patient's request. Patient is a 69 y.o. male with history of diverticular disease admitted for dysuria CT A/P showed left hydronephrosis, psoas and left iliac muscle inflammatory process and air in the bladder. Cystoscopy showed colovesical fistula. Left DJ stent was inserted Currently without pain. Has history of perforated diverticulitis in 2010 treated non-operatively. - History Source Limitations to Obtaining History: No Limitations - Past Medical History Hepatobiliary: Yes: Other (pancreatic cyst,patient being followed by Dr Tadeo) - Alcohol/Substance Use Hx Alcohol Use: No - Smoking History Smoking history: Never smoked Have you smoked in the past 12 months: No If you are a former smoker, when did you quit?: 35 YRS AGO Home Medications - Allergies Allergies/Adverse Reactions: Allergies Allergy/AdvReac Type Severity Reaction Status Date / Time No Known Allergies Allergy Verified 03/05/19 14:28 - Home Medications Home Medications: Ambulatory Orders Metoprolol Succinate [Toprol XL -] 25 mg PO DAILY 10/25/16 Rosuvastatin Calcium [Crestor] 10 mg PO HS 10/25/16 Aspirin Coated [Ecotrin -] 325 mg PO DAILY 11/29/16 Olmesartan Medoxomil [Benicar -] 20 mg PO DAILY 11/29/16 Amlodipine Besylate [Norvasc -] 5 mg PO DAILY 03/05/19 Hydrochlorothiazide 12.5 mg PO DAILY 03/05/19 Physical Exam Vital Signs: Vital Signs Temperature 97.5 F L 03/09/19 16:30 Pulse Rate 67 03/09/19 16:30 Respiratory Rate 20 03/09/19 16:30 Blood Pressure 123/82 03/09/19 16:30 O2 Sat by Pulse Oximetry (%) 99 03/08/19 09:00 Constitutional: Yes: Well Nourished Eyes: Yes: Conjunctiva Clear HENT: Yes: Normocephalic Neck: Yes: Supple Cardiovascular: Yes: Regular Rate and Rhythm Respiratory: Yes: CTA Bilaterally Gastrointestinal: Yes: Soft, Tenderness (None) ...Rectal Exam: Yes: Deferred Labs: CBC, BMP 03/09/19 07:03/09/19 07:30 Imaging - Results Cat Scan: Report Reviewed, Image Reviewed Other: Report Reviewed, Image Reviewed (cystogtram) Problem List - Problems (1) Colovesical fistula Assessment/Plan: Repeat CT A/P with contrast to re-evaluate psoas infection (r/o psoas abscess) Continue antibiotics Code(s): N32.1 - VESICOINTESTINAL FISTULA
[2019-03-10] MEDS ORDERED: DEXTROSE 5%-WATER - 50 ML IVPB ONE ×3 (02:27→18:08)
[2019-03-10] MEDS ORDERED: PIPERACILLIN/TAZOBACTAM 3.375 GM VIAL IVPB ONE ×3 (02:27→18:08)
[2019-03-10] MEDS: PIPERACILLIN/TAZOB 3.375 GM 3.375 GM in DEXTROSE 5%-WATER - 50 ML IVPB SCH ×3 (02:50→18:11)
[2019-03-10 08:29] LABS: BASO % 0.6 % (0-2.0); EOS % 1.5 % (0-4.5); HEMATOCRIT 28.6 % (35.4-49); HEMOGLOBIN 9.5 GM/dL (11.7-16.9); LYMPH % 21.6 % (8-40); MCHC 33.1 g/dl (32.0-35.9); MEAN CELL VOLUME 84.4 fl (80-96); MEAN PLT VOLUME 6.8 fl (7.5-11.1); MONO % 5.5 % (3.8-10.2); NEUT % 70.8 % (42.8-82.8); PLATELET COUNT 476 K/MM3 (134-434); RBC 3.39 M/mm3 (4.00-5.60); RDW 15.4 % (11.9-15.9); WHITE BLOOD COUNT 8.7 K/mm3 (4.0-10.0)
--- NOTE | 2019-03-10 08:32 | PN ---
Progress Note, Physician History of Present Illness: GI FOLLOW UP NOTE Patient examined and case discussed with Dr Hidalgo Patient states having mild suprapubic pain. Complain of constipation. No hematuria noted in FC and on 03/09 Hg 9.4. Denies rectal bleeding, blood in stool, melena. Denies nausea, vomiting. - Current Medication List Current Medications: Active Medications Acetaminophen (Tylenol -) 650 mg PO Q4H PRN PRN Reason: PAIN LEVEL 1-5 Last Admin: 03/09/19 23:05 Dose: 650 mg Sodium Chloride (Normal Saline -) 1,000 mls @ 125 mls/hr IV ASDIR JESSIKA Last Admin: 03/09/19 23:06 Dose: 125 mls/hr Piperacillin Sod/Tazobactam (Sod 3.375 gm/ Dextrose) 50 mls @ 100 mls/hr IVPB Q8H-IV JESSIKA; Protocol Last Admin: 03/10/19 02:50 Dose: 100 mls/hr Oxycodone HCl (Roxicodone -) 5 mg PO Q6H PRN PRN Reason: PAIN LEVEL 6-10 Last Admin: 03/09/19 23:08 Dose: 5 mg - Objective Vital Signs: Vital Signs Temperature 97.6 F 03/10/19 06:00 Pulse Rate 61 03/10/19 06:00 Respiratory Rate 20 03/10/19 06:00 Blood Pressure 140/76 03/10/19 06:00 O2 Sat by Pulse Oximetry (%) 98 03/09/19 21:00 Constitutional: Yes: No Distress, Calm Eyes: Yes: Conjunctiva Clear HENT: Yes: Atraumatic Cardiovascular: Yes: Regular Rate and Rhythm Respiratory: Yes: Regular, CTA Bilaterally Gastrointestinal: Yes: Normal Bowel Sounds, Soft Genitourinary: Yes: Oconnor Present Neurological: Yes: Alert, Oriented Psychiatric: Yes: Alert, Oriented Labs: INR, PTT INR 1.38 (0.83-1.09) H 03/06/19 06:00 <Marli Morris - Last Filed: 03/10/19 08:27> - Current Medication List Current Medications: Active Medications Amlodipine Besylate (Norvasc -) 5 mg PO DAILY [facility] Last Admin: 03/20/19 09:28 Dose: 5 mg Aspirin (Ecotrin -) 325 mg PO DAILY JESSIKA Last Admin: 03/20/19 09:28 Dose: 325 mg Heparin Sodium (Porcine) (Heparin -) 5,000 unit SQ BID [facility] Last Admin: 03/20/19 09:28 Dose: 5,000 unit Hydrochlorothiazide (Hctz -) 12.5 mg PO DAILY [facility] Last Admin: 03/20/19 09:28 Dose: 12.5 mg Piperacillin Sod/Tazobactam (Sod 3.375 gm/ Dextrose) 50 mls @ 100 mls/hr IVPB Q8H-IV JESSIKA; Protocol Last Admin: 03/20/19 09:28 Dose: 100 mls/hr Metoprolol Succinate (Toprol Xl -) 25 mg PO DAILY [facility] Last Admin: 03/20/19 09:28 Dose: 25 mg Ondansetron HCl (Zofran -) 4 mg PO Q8H PRN PRN Reason: NAUSEA Last Admin: 03/15/19 03:49 Dose: 4 mg Pantoprazole Sodium (Protonix -) 40 mg PO DAILY [facility] Last Admin: 03/20/19 10:57 Dose: 40 mg - Objective Vital Signs: Vital Signs Temperature 98.6 F 03/20/19 10:00 Pulse Rate 64 03/20/19 10:00 Respiratory Rate 20 03/20/19 10:00 Blood Pressure 128/85 03/20/19 10:00 O2 Sat by Pulse Oximetry (%) 98 03/20/19 09:00 Labs: CBC, BMP 03/19/19 05:47 03/19/19 05:47 INR, PTT INR 1.38 (0.83-1.09) H 03/06/19 06:00 <Wei Hidalgo - Last Filed: 03/20/19 13:23> Problem List - Problems (1) Anemia Assessment/Plan: -Hg 9.4 -monitor Hg daily -transfuse for Hg < 7.0 Code(s): D64.9 - ANEMIA, UNSPECIFIED (2) Colovesical fistula Assessment/Plan: -Surgery on board, recommendation appreciated Code(s): N32.1 - VESICOINTESTINAL FISTULA <Marli Morris - Last Filed: 03/10/19 08:27> - Problems (1) Colovesical fistula Code(s): N32.1 - VESICOINTESTINAL FISTULA (2) Anemia Code(s): D64.9 - ANEMIA, UNSPECIFIED <Wei Hidalgo - Last Filed: 03/20/19 13:23>
[2019-03-10 09:03] LABS: BLOOD UREA NITROGEN 15.4 mg/dL (7-18); CALCIUM 8.5 mg/dL (8.5-10.1); CREATININE 1.3 mg/dL (0.55-1.3); POTASSIUM 4.5 mmol/L (3.5-5.1)
--- NOTE | 2019-03-10 09:46 | PN ---
Physical Exam: SUBJECTIVE: Patient seen and examined at bedside. Pt is comfortable. No complaints. OBJECTIVE: Vital Signs Period Temp Pulse Resp BP Sys/Zuniga Pulse Ox Last 24 Hr 97.5 F-97.9 F 61-75 20-20 116-140/76-82 98 Gen: comfortable in bed HEENT: NCAT, EOMI Neck: Supple, no jvd Cardio: rrr, Normal s1s2, sys murmur Pulm: cta b/l Abd: soft, nontender ext: no edema Laboratory Results - last 24 hr 03/10/19 03/10/19 07:24 07:24 WBC 8.7 RBC 3.39 L Hgb 9.5 L Hct 28.6 L MCV 84.4 MCH 28.0 MCHC 33.1 RDW 15.4 Plt Count 476 H MPV 6.8 L Absolute Neuts (auto) 6.2 Neutrophils % 70.8 Lymphocytes % 21.6 D Monocytes % 5.5 Eosinophils % 1.5 D Basophils % 0.6 Nucleated RBC % 0 Sodium 142 Potassium 4.5 Chloride 114 H Carbon Dioxide 21 Anion Gap 8 BUN 15.4 Creatinine 1.3 Est GFR (CKD-EPI)AfAm 64.98 Est GFR (CKD-EPI)NonAf 56.06 Random Glucose 69 L Calcium 8.5 Active Medications Generic Name Dose Route Start Last Admin Trade Name Freq PRN Reason Stop Dose Admin Acetaminophen 650 mg 03/07/19 18:55 03/09/19 23:05 Tylenol - PO 650 mg Q4H PRN Administration PAIN LEVEL 1-5 Sodium Chloride 1,000 mls @ 125 mls/hr 03/07/19 16:12 03/09/19 23:06 Normal Saline - IV 125 mls/hr ASDIR JESSIKA Administration Piperacillin Sod/Tazobactam 50 mls @ 100 mls/hr 03/09/19 11:00 03/10/19 02:50 Sod 3.375 gm/ Dextrose IVPB 100 mls/hr Q8H-IV JESSIKA Administration Protocol Oxycodone HCl 5 mg 03/07/19 18:54 03/09/19 23:08 Roxicodone - PO 5 mg Q6H PRN Administration PAIN LEVEL 6-10 Active Medications Acetaminophen (Tylenol -) 650 mg PO Q4H PRN PRN Reason: PAIN LEVEL 1-5 Last Admin: 03/09/19 23:05 Dose: 650 mg Sodium Chloride (Normal Saline -) 1,000 mls @ 125 mls/hr IV ASDIR JESSIKA Last Admin: 03/09/19 23:06 Dose: 125 mls/hr Piperacillin Sod/Tazobactam (Sod 3.375 gm/ Dextrose) 50 mls @ 100 mls/hr IVPB Q8H-IV JESSIKA; Protocol Last Admin: 03/10/19 02:50 Dose: 100 mls/hr Oxycodone HCl (Roxicodone -) 5 mg PO Q6H PRN PRN Reason: PAIN LEVEL 6-10 Last Admin: 03/09/19 23:08 Dose: 5 mg ASSESSMENT/PLAN: This is a 69 year old man with a history of HTN, hyperlipidemia, CVA who presented to the ED with dysuria, urinary urgency and frequency. # E. 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 component from hematuria - Transfused 1 unit PRBCs 03/08 - Continue to monitor hgb. 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 I reviewed the resident's note and discussed the case with the resident. I agree with the resident's findings and plan as documented. SUBJECTIVE: OBJECTIVE: ASSESSMENT AND PLAN:
--- NOTE | 2019-03-10 12:36 | PN ---
Progress Note, Physician History of Present Illness: CYSTO FINDINGS NOTED AWAKE, ALERT SUPINE IN BED NO C/O ABDOMINAL PAIN NO N/V REPORTS NORMAL BM 2D AGO PATE IN PLACE URINE CLEAR NO F/C URINE C/S GNR BC (-) WBC IMPROVED AZOTEMIA IMPROVED - Current Medication List Current Medications: Active Medications Acetaminophen (Tylenol -) 650 mg PO Q4H PRN PRN Reason: PAIN LEVEL 1-5 Last Admin: 03/09/19 23:05 Dose: 650 mg Sodium Chloride (Normal Saline -) 1,000 mls @ 125 mls/hr IV ASDIR JESSIKA Last Admin: 03/09/19 23:06 Dose: 125 mls/hr Piperacillin Sod/Tazobactam (Sod 3.375 gm/ Dextrose) 50 mls @ 100 mls/hr IVPB Q8H-IV JESSIKA; Protocol Last Admin: 03/10/19 10:06 Dose: 100 mls/hr Oxycodone HCl (Roxicodone -) 5 mg PO Q6H PRN PRN Reason: PAIN LEVEL 6-10 Last Admin: 03/09/19 23:08 Dose: 5 mg - Objective Vital Signs: Vital Signs Temperature 97.8 F 03/10/19 10:00 Pulse Rate 70 03/10/19 10:00 Respiratory Rate 18 03/10/19 10:00 Blood Pressure 104/63 03/10/19 10:00 O2 Sat by Pulse Oximetry (%) 98 03/10/19 09:00 Constitutional: Yes: No Distress Eyes: Yes: Conjunctiva Clear Cardiovascular: Yes: Regular Rate and Rhythm, S1, S2 Respiratory: Yes: CTA Bilaterally Gastrointestinal: Yes: Normal Bowel Sounds, Soft. No: Tenderness Edema: No Labs: CBC, BMP 03/10/19 07:24 03/10/19 07:24 INR, PTT INR 1.38 (0.83-1.09) H 03/06/19 06:00 Assessment/Plan COLOVESICULAR FISTULA ? L PSOAS ABSCESS UTI CONTINUE ZOSYN CT SCAN A/P WITH CONTRAST, MRI PLANNED
[2019-03-10] MEDS: SODIUM CHLORIDE 1,000 ML IV SCH (16:50)
--- NOTE | 2019-03-10 17:18 | PN ---
Teaching Attending Note Name of Resident: Pieter Castro ATTENDING PHYSICIAN STATEMENT I saw and evaluated the patient. I reviewed the resident's note and discussed the case with the resident. I agree with the resident's findings and plan as documented. SUBJECTIVE: Patient feels well. OBJECTIVE: Vital Signs Period Temp Pulse Resp BP Sys/Zuniga Pulse Ox Last 24 Hr 97.5 F-97.8 F 61-70 18-20 104-140/63-80 98-98 HEART: S1S2, RRR LUNGS: Clear ABDOMEN: Soft, non-tender, non-distended, normal BS EXTREMITIES: No edema Laboratory Results - last 24 hr 03/10/19 03/10/19 07:24 07:24 WBC 8.7 RBC 3.39 L Hgb 9.5 L Hct 28.6 L MCV 84.4 MCH 28.0 MCHC 33.1 RDW 15.4 Plt Count 476 H MPV 6.8 L Absolute Neuts (auto) 6.2 Neutrophils % 70.8 Lymphocytes % 21.6 D Monocytes % 5.5 Eosinophils % 1.5 D Basophils % 0.6 Nucleated RBC % 0 Sodium 142 Potassium 4.5 Chloride 114 H Carbon Dioxide 21 Anion Gap 8 BUN 15.4 Creatinine 1.3 Est GFR (CKD-EPI)AfAm 64.98 Est GFR (CKD-EPI)NonAf 56.06 Random Glucose 69 L Calcium 8.5 Current Medications Generic Name Dose Route Start Last Admin Trade Name Freq PRN Reason Stop Dose Admin Acetaminophen 650 mg 03/07/19 18:55 03/09/19 23:05 Tylenol - PO 650 mg Q4H PRN Administration PAIN LEVEL 1-5 Sodium Chloride 1,000 mls @ 125 mls/hr 03/07/19 16:12 03/10/19 16:50 Normal Saline - IV 125 mls/hr ASDIR JESSIKA Administration Piperacillin Sod/Tazobactam 50 mls @ 100 mls/hr 03/09/19 11:00 03/10/19 10:06 Sod 3.375 gm/ Dextrose IVPB 100 mls/hr Q8H-IV JESSIKA Administration Protocol Oxycodone HCl 5 mg 03/07/19 18:54 03/09/19 23:08 Roxicodone - PO 5 mg Q6H PRN Administration PAIN LEVEL 6-10 ASSESSMENT AND PLAN: This is a 69 year old man with a history of HTN, hyperlipidemia, CVA who presented to the ED with dysuria, urinary urgency and frequency. 1. E. 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 Acute kidney injury - Likely secondary to left ureter obstruction with left hydronephrosis - Improving with IV fluid and left ureteral stent placement - Continue IV fluid - Continue to monitor BUN, creatinine 3. Anemia - Iron studies consistent with chronic illness - Also acute component secondary to hematuria - Transfused 1 unit PRBCs 03/08 - Continue to monitor hgb 4. Thrombocytosis - Likely reactive - Improving - Continue to monitor platelet count 5. HTN - BP meds held secondary to hypotension 6. Hyperlipidemia 7. 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 Pancreatic cyst
[2019-03-11] MEDS ORDERED: PIPERACILLIN/TAZOBACTAM 3.375 GM VIAL IVPB ONE ×4 (01:38→23:58)
[2019-03-11] MEDS ORDERED: DEXTROSE 5%-WATER - 50 ML IVPB ONE ×4 (01:39→23:59)
[2019-03-11] MEDS: PIPERACILLIN/TAZOB 3.375 GM 3.375 GM in DEXTROSE 5%-WATER - 50 ML IVPB SCH ×3 (01:44→17:58)
[2019-03-11] MEDS: oxyCODONE HCL 5 MG TABLET PO PRN (01:44)
[2019-03-11 07:01] LABS: BASO % 1.3 % (0-2.0); EOS % 1.9 % (0-4.5); HEMATOCRIT 28.6 % (35.4-49); HEMOGLOBIN 9.3 GM/dL (11.7-16.9); LYMPH % 17.8 % (8-40); MCH 27.8 pg (25.7-33.7); MCHC 32.6 g/dl (32.0-35.9); MEAN CELL VOLUME 85.3 fl (80-96); MEAN PLT VOLUME 6.6 fl (7.5-11.1); MONO % 6.4 % (3.8-10.2); NEUT % 72.6 % (42.8-82.8); PLATELET COUNT 448 K/MM3 (134-434); RBC 3.35 M/mm3 (4.00-5.60); RDW 15.3 % (11.9-15.9); WHITE BLOOD COUNT 9.4 K/mm3 (4.0-10.0)
[2019-03-11 07:25] LABS: ALBUMIN 1.8 g/dl (3.4-5.0); BILIRUBIN,TOTAL 0.5 mg/dL (0.2-1); BLOOD UREA NITROGEN 11.2 mg/dL (7-18); CALCIUM 8.3 mg/dL (8.5-10.1); CREATININE 1.2 mg/dL (0.55-1.3); POTASSIUM 4.4 mmol/L (3.5-5.1); TOT PROT 5.2 g/dl (6.4-8.2)
--- NOTE | 2019-03-11 07:42 | PN ---
Physical Exam: SUBJECTIVE: Patient seen and examined at bedside. Pt is comfortable. No complaints OBJECTIVE: Vital Signs Period Temp Pulse Resp BP Sys/Zuniga Pulse Ox Last 24 Hr 97.6 F-98.0 F 67-70 18-20 104-118/63-77 98-100 Gen: comfortable in bed HEENT: NCAT, EOMI Neck: Supple, no jvd Cardio: rrr, Normal s1s2, sys murmur Pulm: cta b/l Abd: soft, nontender ext: no edema Laboratory Results - last 24 hr 03/10/19 03/10/19 03/11/19 07:24 07:24 06:30 WBC 8.7 RBC 3.39 L Hgb 9.5 L Hct 28.6 L MCV 84.4 MCH 28.0 MCHC 33.1 RDW 15.4 Plt Count 476 H MPV 6.8 L Absolute Neuts (auto) 6.2 Neutrophils % 70.8 Lymphocytes % 21.6 D Monocytes % 5.5 Eosinophils % 1.5 D Basophils % 0.6 Nucleated RBC % 0 Sodium 142 145 Potassium 4.5 4.4 Chloride 114 H 114 H Carbon Dioxide 21 24 Anion Gap 8 6 L BUN 15.4 11.2 Creatinine 1.3 1.2 Est GFR (CKD-EPI)AfAm 64.98 71.58 Est GFR (CKD-EPI)NonAf 56.06 61.76 Random Glucose 69 L 71 L Calcium 8.5 8.3 L Total Bilirubin 0.5 AST 15 ALT 14 Alkaline Phosphatase 60 Total Protein 5.2 L Albumin 1.8 L Active Medications Generic Name Dose Route Start Last Admin Trade Name Pedro Pabloq PRN Reason Stop Dose Admin Acetaminophen 650 mg 03/07/19 18:55 03/09/19 23:05 Tylenol - PO 650 mg Q4H PRN Administration PAIN LEVEL 1-5 Sodium Chloride 1,000 mls @ 125 mls/hr 03/07/19 16:12 03/10/19 16:50 Normal Saline - IV 125 mls/hr ASDIR JESSIKA Administration Piperacillin Sod/Tazobactam 50 mls @ 100 mls/hr 03/09/19 11:00 03/11/19 01:44 Sod 3.375 gm/ Dextrose IVPB 100 mls/hr Q8H-IV JESSIKA Administration Protocol Oxycodone HCl 5 mg 03/07/19 18:54 03/11/19 01:44 Roxicodone - PO 5 mg Q6H PRN Administration PAIN LEVEL 6-10 Active Medications Acetaminophen (Tylenol -) 650 mg PO Q4H PRN PRN Reason: PAIN LEVEL 1-5 Last Admin: 03/09/19 23:05 Dose: 650 mg Sodium Chloride (Normal Saline -) 1,000 mls @ 125 mls/hr IV ASDIR JESSIKA Last Admin: 03/10/19 16:50 Dose: 125 mls/hr Piperacillin Sod/Tazobactam (Sod 3.375 gm/ Dextrose) 50 mls @ 100 mls/hr IVPB Q8H-IV JESSIKA; Protocol Last Admin: 03/11/19 01:44 Dose: 100 mls/hr Oxycodone HCl (Roxicodone -) 5 mg PO Q6H PRN PRN Reason: PAIN LEVEL 6-10 Last Admin: 03/11/19 01:44 Dose: 5 mg ASSESSMENT/PLAN: This is a 69 year old man with a history of HTN, hyperlipidemia, CVA who presented to the ED with dysuria, urinary urgency and frequency. # E. 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 component from hematuria - Transfused 1 unit PRBCs 03/08 - Continue to monitor hgb. 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 I reviewed the resident's note and discussed the case with the resident. I agree with the resident's findings and plan as documented. SUBJECTIVE: OBJECTIVE: ASSESSMENT AND PLAN:
[2019-03-11] MEDS: DEXTROSE 5%-NORMAL SALINE 1,000 ML IV SCH (10:17)
--- NOTE | 2019-03-11 16:12 | PN ---
Progress Note, Physician History of Present Illness: AWAKE, ALERT OOB IN CHAIR NO C/O ABDOMINAL PAIN NO N/V PATE IN PLACE URINE CLEAR NO F/C URINE C/S GNR BC (-) WBC IMPROVED WNL AZOTEMIA IMPROVED - Current Medication List Current Medications: Active Medications Acetaminophen (Tylenol -) 650 mg PO Q4H PRN PRN Reason: PAIN LEVEL 1-5 Last Admin: 03/09/19 23:05 Dose: 650 mg Piperacillin Sod/Tazobactam (Sod 3.375 gm/ Dextrose) 50 mls @ 100 mls/hr IVPB Q8H-IV JESSIKA; Protocol Last Admin: 03/11/19 10:17 Dose: 100 mls/hr Dextrose/Sodium Chloride (D5-Ns -) 1,000 mls @ 125 mls/hr IV ASDIR JESSIKA Last Admin: 03/11/19 10:17 Dose: 125 mls/hr Oxycodone HCl (Roxicodone -) 5 mg PO Q6H PRN PRN Reason: PAIN LEVEL 6-10 Last Admin: 03/11/19 01:44 Dose: 5 mg - Objective Vital Signs: Vital Signs Temperature 98.3 F 03/11/19 15:13 Pulse Rate 62 03/11/19 15:13 Respiratory Rate 20 03/11/19 15:13 Blood Pressure 147/81 03/11/19 15:13 O2 Sat by Pulse Oximetry (%) 96 03/11/19 09:00 Constitutional: Yes: No Distress Cardiovascular: Yes: Regular Rate and Rhythm, S1, S2 Respiratory: Yes: CTA Bilaterally Gastrointestinal: Yes: Normal Bowel Sounds, Soft, Tenderness, Other (MILD DIFFUSE TENDERNESS TO PALP) Edema: No Labs: CBC, BMP 03/11/19 06:30 03/11/19 06:30 INR, PTT INR 1.38 (0.83-1.09) H 03/06/19 06:00 Assessment/Plan COLOVESICULAR FISTULA ? L PSOAS ABSCESS UTI CONTINUE ZOSYN MRI PENDING
--- NOTE | 2019-03-11 17:00 | PN ---
Teaching Attending Note Name of Resident: Pieter Castro ATTENDING PHYSICIAN STATEMENT I saw and evaluated the patient. I reviewed the resident's note and discussed the case with the resident. I agree with the resident's findings and plan as documented with exceptions below. SUBJECTIVE: patient seen and examined. denies any nausea, vomiting, abdominal pain. felt her manzo cath moved overnight. OBJECTIVE: Vital Signs Period Temp Pulse Resp BP Sys/Zuniga Pulse Ox Last 24 Hr 97.6 F-98.3 F 62-69 20-20 115-147/72-81 96-100 Intake & Output 03/08/19 03/09/19 03/10/19 03/11/19 23:59 23:59 23:59 23:59 Intake Total 2100 2100 600 1530 Output Total 1000 2300 1500 2300 Balance 1100 -200 -900 -770 General: sitting in bed in no acute distress CVS:S1S2 regular Chest: CTAB, no rales or wheezing Abdomen:Soft, NT,throughout, SOme distension, pos bowel sounds Extremities: no edema Psych: pleasant, co-operative Home Medications Medication Instructions Recorded Metoprolol Succinate [Toprol XL -] 25 mg PO DAILY 10/25/16 Rosuvastatin Calcium [Crestor] 10 mg PO HS 10/25/16 Aspirin Coated [Ecotrin -] 325 mg PO DAILY 11/29/16 Olmesartan Medoxomil [Benicar -] 20 mg PO DAILY 11/29/16 Amlodipine Besylate [Norvasc -] 5 mg PO DAILY 03/05/19 Hydrochlorothiazide 12.5 mg PO DAILY 03/05/19 Active Medications Acetaminophen (Tylenol -) 650 mg PO Q4H PRN PRN Reason: PAIN LEVEL 1-5 Last Admin: 03/09/19 23:05 Dose: 650 mg Piperacillin Sod/Tazobactam (Sod 3.375 gm/ Dextrose) 50 mls @ 100 mls/hr IVPB Q8H-IV JESSIKA; Protocol Last Admin: 03/11/19 10:17 Dose: 100 mls/hr Dextrose/Sodium Chloride (D5-Ns -) 1,000 mls @ 125 mls/hr IV ASDIR JESSIKA Last Admin: 03/11/19 10:17 Dose: 125 mls/hr Oxycodone HCl (Roxicodone -) 5 mg PO Q6H PRN PRN Reason: PAIN LEVEL 6-10 Last Admin: 03/11/19 01:44 Dose: 5 mg Laboratory Results - last 24 hr 03/06/19 03/11/19 03/11/19 06:00 06:30 06:30 WBC 9.4 RBC 3.35 L Hgb 9.3 L Hct 28.6 L MCV 85.3 MCH 27.8 MCHC 32.6 RDW 15.3 Plt Count 448 H MPV 6.6 L Absolute Neuts (auto) 6.9 Neutrophils % 72.6 Lymphocytes % 17.8 Monocytes % 6.4 Eosinophils % 1.9 Basophils % 1.3 Nucleated RBC % 0 Sodium 145 Potassium 4.4 Chloride 114 H Carbon Dioxide 24 Anion Gap 6 L BUN 11.2 Creatinine 1.2 Est GFR (CKD-EPI)AfAm 71.58 Est GFR (CKD-EPI)NonAf 61.76 Random Glucose 71 L Calcium 8.3 L Total Bilirubin 0.5 AST 15 ALT 14 Alkaline Phosphatase 60 Total Protein 5.2 L Albumin 1.8 L Blood Type A POSITIVE Antibody Screen Negative Crossmatch See Detail Microbiology 03/06/19 13:18 Blood - Peripheral Venous Blood Culture - Final NO GROWTH AFTER 5 DAYS INCUBATION 03/06/19 13:10 Blood - Peripheral Venous Blood Culture - Final NO GROWTH AFTER 5 DAYS INCUBATION 03/09/19 07:35 Urine - Urine Manzo Urine Culture - Final Lactose Fermenting Neg Bacilli 03/05/19 16:51 Urine - Urine Clean Catch Urine Culture - Final Escherichia Coli ASSESSMENT AND PLAN: 69 year old man with a history of HTN, hyperlipidemia, CVA who presented to the ED with dysuria, urinary urgency and frequency. -Complicated E. Coli UTI, left colovesical fistula due to possible diveriticulitis/Psoas abscesss -SANDY/Left ureteral obstruction/left hydronephrosis -Anemia of chronic disease -Thrombocytosis, likely reactive from above -HTn -HLD -Possible h/o CVA -Pancreatic cyst Plan: Zosyn day 4, ID input noted. s/p cystoscopy/cystogram/L JJ stent insertion 03/06. Urology input appreciated. Follow up MRI pelvis. Maintain manzo catheter. Surgery input noted, plan for sigmoid resection, will follow up, s/p 1 unit PRBC 03/08. BP meds held due to hypotension. DVTPPX per surgical plans Dispo pending above and clinical improvement Discussed with patient and nursing, all questions answered.
--- NOTE | 2019-03-11 19:37 | PN ---
Progress Note, Physician Chief Complaint: colovesical fistula History of Present Illness: Currently without abdominal pain Pelvic MRI reviewed - Current Medication List Current Medications: Active Medications Acetaminophen (Tylenol -) 650 mg PO Q4H PRN PRN Reason: PAIN LEVEL 1-5 Last Admin: 03/09/19 23:05 Dose: 650 mg Piperacillin Sod/Tazobactam (Sod 3.375 gm/ Dextrose) 50 mls @ 100 mls/hr IVPB Q8H-IV JESSIKA; Protocol Last Admin: 03/11/19 17:58 Dose: 100 mls/hr Dextrose/Sodium Chloride (D5-Ns -) 1,000 mls @ 125 mls/hr IV ASDIR JESSIKA Last Admin: 03/11/19 10:17 Dose: 125 mls/hr Oxycodone HCl (Roxicodone -) 5 mg PO Q6H PRN PRN Reason: PAIN LEVEL 6-10 Last Admin: 03/11/19 01:44 Dose: 5 mg - Objective Vital Signs: Vital Signs Temperature 98.2 F 03/11/19 17:06 Pulse Rate 66 03/11/19 17:06 Respiratory Rate 20 03/11/19 17:06 Blood Pressure 122/79 03/11/19 17:06 O2 Sat by Pulse Oximetry (%) 96 03/11/19 09:00 Constitutional: Yes: No Distress, Calm Eyes: Yes: Conjunctiva Clear HENT: Yes: Normocephalic Neck: Yes: Supple Cardiovascular: Yes: Regular Rate and Rhythm Respiratory: Yes: CTA Bilaterally Gastrointestinal: Yes: Soft, Tenderness (none) ...Rectal Exam: Yes: Deferred Genitourinary: Yes: Oconnor Present Labs: CBC, BMP 03/11/19 06:30 03/11/19 06:30 INR, PTT INR 1.38 (0.83-1.09) H 03/06/19 06:00 Problem List - Problems (1) Colovesical fistula Assessment/Plan: with possible retroperitoneal perforation and ongoing inflammatory/infectious process for diagnostic laparoscopy, possible partial sigmoid colectomy, with/without colostomy, repair of colovesical fistula on , 03/13/19 Bowel prep in am Code(s): N32.1 - VESICOINTESTINAL FISTULA
[2019-03-11] MEDS ORDERED: PT OWN MED DRAWER 7, Y5N ONE (21:21)
[2019-03-11] MEDS: NEOMYCIN SO4 500 MG TABLET PO SCH (22:08)
[2019-03-12] MEDS: PIPERACILLIN/TAZOB 3.375 GM 3.375 GM in DEXTROSE 5%-WATER - 50 ML IVPB SCH ×3 (01:33→17:21)
[2019-03-12] MEDS: NEOMYCIN SO4 500 MG TABLET PO SCH ×2 (05:51→14:14)
[2019-03-12 06:40] LABS: EOS % 1.9 % (0-4.5); HEMATOCRIT 27.1 % (35.4-49); HEMOGLOBIN 8.9 GM/dL (11.7-16.9); LYMPH % 17.5 % (8-40); MCH 27.9 pg (25.7-33.7); MCHC 32.8 g/dl (32.0-35.9); MEAN PLT VOLUME 6.7 fl (7.5-11.1); MONO % 6.2 % (3.8-10.2); NEUT % 73.4 % (42.8-82.8); PLATELET COUNT 379 K/MM3 (134-434); RBC 3.19 M/mm3 (4.00-5.60); RDW 15.5 % (11.9-15.9); WHITE BLOOD COUNT 8.5 K/mm3 (4.0-10.0)
[2019-03-12 07:08] LABS: BLOOD UREA NITROGEN 7.9 mg/dL (7-18); CALCIUM 8.2 mg/dL (8.5-10.1); CREATININE 1.2 mg/dL (0.55-1.3); POTASSIUM 3.9 mmol/L (3.5-5.1)
--- NOTE | 2019-03-12 07:33 | PN ---
Progress Note, Physician History of Present Illness: GI FOLLOW UP NOTE Patient examined and case discussed with Dr Hidalgo Patient denies abdominal pain, nausea, vomiting. Pelvic MRI reviewed and shows sigmoid diverticulitis with complex fistulous and sinus tract communicating the sigmoid colon with the urinary bladder and with an air-filled collection anterior to left distal psoas and ilopsoas muscle coupled with extensive surrounding inflammation. Patient has started taking bowel prep for surgery in AM. - Current Medication List Current Medications: Active Medications Acetaminophen (Tylenol -) 650 mg PO Q4H PRN PRN Reason: PAIN LEVEL 1-5 Last Admin: 03/09/19 23:05 Dose: 650 mg Piperacillin Sod/Tazobactam (Sod 3.375 gm/ Dextrose) 50 mls @ 100 mls/hr IVPB Q8H-IV JESSIKA; Protocol Last Admin: 03/12/19 01:33 Dose: 100 mls/hr Dextrose/Sodium Chloride (D5-Ns -) 1,000 mls @ 125 mls/hr IV ASDIR JESSIKA Last Admin: 03/11/19 10:17 Dose: 125 mls/hr Metronidazole (Flagyl -) 500 mg PO TID JESSIKA Stop: 03/12/19 22:01 Neomycin Sulfate (Mycifradin -) 1,000 mg PO TID JESSIKA Stop: 03/12/19 14:01 Last Admin: 03/12/19 05:51 Dose: 1,000 mg Oxycodone HCl (Roxicodone -) 5 mg PO Q6H PRN PRN Reason: PAIN LEVEL 6-10 Last Admin: 03/11/19 01:44 Dose: 5 mg Polyethylene Glycol/Electrolytes (Golytely Solution -) 4,000 ml PO ONCE ONE Stop: 03/12/19 08:01 - Objective Vital Signs: Vital Signs Temperature 98.2 F 03/12/19 07:21 Pulse Rate 68 03/12/19 07:21 Respiratory Rate 20 03/12/19 07:21 Blood Pressure 142/88 03/12/19 07:21 O2 Sat by Pulse Oximetry (%) 96 03/11/19 21:00 Constitutional: Yes: No Distress, Calm Eyes: Yes: Conjunctiva Clear HENT: Yes: Atraumatic Cardiovascular: Yes: Regular Rate and Rhythm Respiratory: Yes: Regular, CTA Bilaterally Gastrointestinal: Yes: Normal Bowel Sounds, Soft, Tenderness (mild, diffuse) Genitourinary: Yes: Oconnor Present Neurological: Yes: Alert, Oriented Psychiatric: Yes: Alert, Oriented Labs: CBC, BMP 03/12/19 06:00 INR, PTT INR 1.38 (0.83-1.09) H 03/06/19 06:00 <Marli Morris - Last Filed: 03/12/19 07:28> - Current Medication List Current Medications: Active Medications Amlodipine Besylate (Norvasc -) 5 mg PO DAILY [facility] Last Admin: 03/20/19 09:28 Dose: 5 mg Aspirin (Ecotrin -) 325 mg PO DAILY [facility] Last Admin: 03/20/19 09:28 Dose: 325 mg Heparin Sodium (Porcine) (Heparin -) 5,000 unit SQ BID [facility] Last Admin: 03/20/19 09:28 Dose: 5,000 unit Hydrochlorothiazide (Hctz -) 12.5 mg PO DAILY [facility] Last Admin: 03/20/19 09:28 Dose: 12.5 mg Piperacillin Sod/Tazobactam (Sod 3.375 gm/ Dextrose) 50 mls @ 100 mls/hr IVPB Q8H-IV [facility]; Protocol Last Admin: 03/20/19 09:28 Dose: 100 mls/hr Metoprolol Succinate (Toprol Xl -) 25 mg PO DAILY [facility] Last Admin: 03/20/19 09:28 Dose: 25 mg Ondansetron HCl (Zofran -) 4 mg PO Q8H PRN PRN Reason: NAUSEA Last Admin: 03/15/19 03:49 Dose: 4 mg Pantoprazole Sodium (Protonix -) 40 mg PO DAILY [facility] Last Admin: 03/20/19 10:57 Dose: 40 mg - Objective Vital Signs: Vital Signs Temperature 98.6 F 03/20/19 10:00 Pulse Rate 64 03/20/19 10:00 Respiratory Rate 20 03/20/19 10:00 Blood Pressure 128/85 03/20/19 10:00 O2 Sat by Pulse Oximetry (%) 98 03/20/19 09:00 Labs: CBC, BMP 03/19/19 05:47 03/19/19 05:47 INR, PTT INR 1.38 (0.83-1.09) H 03/06/19 06:00 <Wei Hidalgo - Last Filed: 03/20/19 13:23> Problem List - Problems (1) Anemia Assessment/Plan: -Hg 9.3 -monitor Hg daily -transfuse for Hg < 7.0 Code(s): D64.9 - ANEMIA, UNSPECIFIED (2) Colovesical fistula Assessment/Plan: -Pelvic MRI reviewed -patient for OR in AM with Dr Ryan for diagnostic laparoscopy, possible partial sigmoid colectomy with/without colostomy and repair of colovesical fistula -began bowel prep -clear liquids and NPO after midnight Code(s): N32.1 - VESICOINTESTINAL FISTULA <Marli Morris - Last Filed: 03/12/19 07:28> - Problems (1) Colovesical fistula Code(s): N32.1 - VESICOINTESTINAL FISTULA (2) Anemia Code(s): D64.9 - ANEMIA, UNSPECIFIED <Wei Hidalgo - Last Filed: 03/20/19 13:23>
[2019-03-12] MEDS ORDERED: PEG 3350/NA SULF BICARB CL/KCL 4000 ML SOLN.RECON PO ONE (08:00)
[2019-03-12] MEDS ORDERED: PIPERACILLIN/TAZOBACTAM 3.375 GM VIAL IVPB ONE ×2 (09:13→16:42)
[2019-03-12] MEDS ORDERED: DEXTROSE 5%-WATER - 50 ML IVPB ONE ×2 (09:13→16:42)
[2019-03-12] MEDS: DEXTROSE 5%-NORMAL SALINE 1,000 ML IV SCH ×2 (09:38→17:20)
[2019-03-12] MEDS: metroNIDAZOLE 250 MG TABLET PO SCH ×3 (09:40→21:27)
--- NOTE | 2019-03-12 11:08 | PN ---
Progress Note, Physician History of Present Illness: AWAKE, ALERT NO C/O ABDOMINAL PAIN NO N/V + BM NO F/C URINE C/S e coli BC (-) WBC IMPROVED WNL AZOTEMIA IMPROVED - Current Medication List Current Medications: Active Medications Acetaminophen (Tylenol -) 650 mg PO Q4H PRN PRN Reason: PAIN LEVEL 1-5 Last Admin: 03/09/19 23:05 Dose: 650 mg Piperacillin Sod/Tazobactam (Sod 3.375 gm/ Dextrose) 50 mls @ 100 mls/hr IVPB Q8H-IV JESSIKA; Protocol Last Admin: 03/12/19 09:41 Dose: 100 mls/hr Dextrose/Sodium Chloride (D5-Ns -) 1,000 mls @ 125 mls/hr IV ASDIR JESSIKA Last Admin: 03/12/19 09:38 Dose: 125 mls/hr Metronidazole (Flagyl -) 500 mg PO TID JESSIKA Stop: 03/12/19 22:01 Last Admin: 03/12/19 09:40 Dose: 500 mg Neomycin Sulfate (Mycifradin -) 1,000 mg PO TID JESSIKA Stop: 03/12/19 14:01 Last Admin: 03/12/19 05:51 Dose: 1,000 mg - Objective Vital Signs: Vital Signs Temperature 98.2 F 03/12/19 07:21 Pulse Rate 68 03/12/19 07:21 Respiratory Rate 20 03/12/19 07:21 Blood Pressure 142/88 03/12/19 07:21 O2 Sat by Pulse Oximetry (%) 96 03/11/19 21:00 Labs: CBC, BMP 03/12/19 06:00 03/12/19 06:00 INR, PTT INR 1.38 (0.83-1.09) H 03/06/19 06:00 Assessment/Plan COLOVESICULAR FISTULA L PSOAS ABSCESS UTI FOR SURGERY AM CONTINUE ZOSYN
--- NOTE | 2019-03-12 11:15 | SPA.PREOP ---
- PRE-OP NOTE Dx: Colovesical fistula Planned Procedure: Dx laparoscopy, possible partial sigmoid colectomy, with/ without colostomy, repair of colovesical fistula on 03/13/19 Surgeon: Parker Ryan Last Vital Signs Temp Pulse Resp BP Pulse Ox 98.2 F 68 20 142/88 96 03/12/19 07:21 03/12/19 07:21 03/12/19 07:21 03/12/19 07:21 03/11/19 21:00 Lab Results WBC 8.5 K/mm3 (4.0-10.0) 03/12/19 06:00 RBC 3.19 M/mm3 (4.00-5.60) L 03/12/19 06:00 Hgb 8.9 GM/dL (11.7-16.9) L 03/12/19 06:00 Hct 27.1 % (35.4-49) L 03/12/19 06:00 MCV 85.0 fl (80-96) 03/12/19 06:00 MCHC 32.8 g/dl (32.0-35.9) 03/12/19 06:00 RDW 15.5 % (11.9-15.9) 03/12/19 06:00 Plt Count 379 K/MM3 (134-434) 03/12/19 06:00 Sodium 143 mmol/L (136-145) 03/12/19 06:00 Potassium 3.9 mmol/L (3.5-5.1) 03/12/19 06:00 Chloride 114 mmol/L (98-107) H 03/12/19 06:00 Carbon Dioxide 22 mmol/L (21-32) 03/12/19 06:00 Anion Gap 7 MMOL/L (8-16) L 03/12/19 06:00 BUN 7.9 mg/dL (7-18) 03/12/19 06:00 Creatinine 1.2 mg/dL (0.55-1.3) 03/12/19 06:00 Random Glucose 100 mg/dL (74-106) 03/12/19 06:00 Calcium 8.2 mg/dL (8.5-10.1) L 03/12/19 06:00 Blood Type A POSITIVE 03/06/19 06:00 Antibody Screen Negative 03/06/19 06:00 INR 1.38 (0.83-1.09) H 03/06/19 06:00 INR, PTT INR 1.38 (0.83-1.09) H 03/06/19 06:00 Blood Type Blood Type A POSITIVE 03/06/19 06:00 - ASSESSMENT/PLAN 1. Make NPO after midnight except po meds 2. GI/DVT PPX 3. Medical optimization / clearance 4. Bowel Prep 5. New Type and Screen 6. 2 PRBC on hold for OR 7. Entereg 12 mg ordered for 8AM 8. Consent to be obtained by surgeon after risks, benefits and alternatives discussed with patient and or Health Care Proxy. Problem List - Problems (1) Colovesical fistula Code(s): N32.1 - VESICOINTESTINAL FISTULA (2) Leukocytosis Code(s): D72.829 - ELEVATED WHITE BLOOD CELL COUNT, UNSPECIFIED (3) Psoas abscess, left Code(s): K68.12 - PSOAS MUSCLE ABSCESS Visit type - Case Type Case Type: ED Admission - New patient This patient is new to me today: Yes Date on this admission: 03/12/19
--- NOTE | 2019-03-12 14:24 | PN ---
Teaching Attending Note Name of Resident: Pieter Castro ATTENDING PHYSICIAN STATEMENT I saw and evaluated the patient. I reviewed the resident's note and discussed the case with the resident. I agree with the resident's findings and plan as documented with exceptions below. SUBJECTIVE: Patient seen and examined. passing gas, no nausea, vomiting, abdominal pain. tolerating diet well. OBJECTIVE: Vital Signs Period Temp Pulse Resp BP Sys/Zuniga Pulse Ox Last 24 Hr 97.9 F-98.3 F 62-68 20-20 120-155/77-96 96-96 Intake & Output 03/09/19 03/10/19 03/11/19 03/12/19 23:59 23:59 23:59 23:59 Intake Total 2100 600 3130 Output Total 2300 1500 2700 1200 Balance -200 -900 430 -1200 General: sitting in bed in no acute distress CVS:S1S2 regular Chest: CTAB, no rales or wheezing Abdomen:Soft, NT,throughout, SOme distension, pos bowel sounds Extremities: no edema Psych: pleasant, co-operative Home Medications Medication Instructions Recorded Metoprolol Succinate [Toprol XL -] 25 mg PO DAILY 10/25/16 Rosuvastatin Calcium [Crestor] 10 mg PO HS 10/25/16 Aspirin Coated [Ecotrin -] 325 mg PO DAILY 11/29/16 Olmesartan Medoxomil [Benicar -] 20 mg PO DAILY 11/29/16 Amlodipine Besylate [Norvasc -] 5 mg PO DAILY 03/05/19 Hydrochlorothiazide 12.5 mg PO DAILY 03/05/19 Active Medications Acetaminophen (Tylenol -) 650 mg PO Q4H PRN PRN Reason: PAIN LEVEL 1-5 Last Admin: 03/09/19 23:05 Dose: 650 mg Alvimopan (Entereg Capsule (Restricted) -) 12 mg PO ONCE ONE Stop: 03/13/19 08:01 Piperacillin Sod/Tazobactam (Sod 3.375 gm/ Dextrose) 50 mls @ 100 mls/hr IVPB Q8H-IV JESSIKA; Protocol Last Admin: 03/12/19 09:41 Dose: 100 mls/hr Dextrose/Sodium Chloride (D5-Ns -) 1,000 mls @ 125 mls/hr IV ASDIR JESSIKA Last Admin: 03/12/19 09:38 Dose: 125 mls/hr Metronidazole (Flagyl -) 500 mg PO TID JESSIKA Stop: 03/12/19 22:01 Last Admin: 03/12/19 14:14 Dose: 500 mg Laboratory Results - last 24 hr 03/06/19 03/12/19 03/12/19 06:00 06:00 06:00 WBC 8.5 RBC 3.19 L Hgb 8.9 L Hct 27.1 L MCV 85.0 MCH 27.9 MCHC 32.8 RDW 15.5 Plt Count 379 MPV 6.7 L Absolute Neuts (auto) 6.3 Neutrophils % 73.4 Lymphocytes % 17.5 Monocytes % 6.2 Eosinophils % 1.9 Basophils % 1.0 Nucleated RBC % 0 Sodium 143 Potassium 3.9 Chloride 114 H Carbon Dioxide 22 Anion Gap 7 L BUN 7.9 Creatinine 1.2 Est GFR (CKD-EPI)AfAm 71.58 Est GFR (CKD-EPI)NonAf 61.76 Random Glucose 100 Calcium 8.2 L Blood Type A POSITIVE Antibody Screen Negative Crossmatch See Detail Crossmatch IS Only 03/12/19 12:49 WBC RBC Hgb Hct MCV MCH MCHC RDW Plt Count MPV Absolute Neuts (auto) Neutrophils % Lymphocytes % Monocytes % Eosinophils % Basophils % Nucleated RBC % Sodium Potassium Chloride Carbon Dioxide Anion Gap BUN Creatinine Est GFR (CKD-EPI)AfAm Est GFR (CKD-EPI)NonAf Random Glucose Calcium Blood Type A POSITIVE Antibody Screen Negative Crossmatch Crossmatch IS Only See Detail Microbiology 03/06/19 13:18 Blood - Peripheral Venous Blood Culture - Final NO GROWTH AFTER 5 DAYS INCUBATION 03/06/19 13:10 Blood - Peripheral Venous Blood Culture - Final NO GROWTH AFTER 5 DAYS INCUBATION 03/09/19 07:35 Urine - Urine Manzo Urine Culture - Final Lactose Fermenting Neg Bacilli 03/05/19 16:51 Urine - Urine Clean Catch Urine Culture - Final Escherichia Coli ASSESSMENT AND PLAN: 69 year old man with a history of HTN, hyperlipidemia, CVA who presented to the ED with dysuria, urinary urgency and frequency. -Complicated E. Coli UTI, left colovesical fistula due to possible diverticulitis/Psoas abscess -SANDY/Left ureteral obstruction/left hydronephrosis -Anemia of chronic disease -Thrombocytosis, likely reactive from above -HTN -HLD -Possible h/o CVA -Pancreatic cyst Plan: Zosyn day 5, Flagyl added, ID input noted. s/p cystoscopy/cystogram/L JJ stent insertion 03/06. Urology input appreciated. Maintain manzo catheter. MRi pelvis noted, Discussed with Dr. Tripathi For bowel prep. Plan for diagnostic laparoscopy, possible partial sigmoid colectomy, with/ without colostomy, repair of colovesical fistula on 03/13/2019 NPO after midnight, IVF. s/p 1 unit PRBC 03/08. Hold BP meds for now. DVTPPX per surgery Dispo pending above and clinical improvement Discussed with patient and nursing, all questions answered.
[2019-03-12 14:47] VITALS: BMI 25.9
--- NOTE | 2019-03-12 17:37 | PN ---
Physical Exam: SUBJECTIVE: Patient seen and examined at bedside. Pt is comfortable. No complaints. Surgery postponed till tomorrow. OBJECTIVE: Vital Signs Period Temp Pulse Resp BP Sys/Zuniga Pulse Ox Last 24 Hr 97.7 F-98.2 F 64-90 20-20 120-155/77-98 96-96 Gen: comfortable in bed HEENT: NCAT, EOMI Neck: Supple, no jvd Cardio: rrr, Normal s1s2, sys murmur Pulm: cta b/l Abd: soft, nontender ext: no edema Laboratory Results - last 24 hr 03/12/19 03/12/19 03/12/19 06:00 06:00 12:49 WBC 8.5 RBC 3.19 L Hgb 8.9 L Hct 27.1 L MCV 85.0 MCH 27.9 MCHC 32.8 RDW 15.5 Plt Count 379 MPV 6.7 L Absolute Neuts (auto) 6.3 Neutrophils % 73.4 Lymphocytes % 17.5 Monocytes % 6.2 Eosinophils % 1.9 Basophils % 1.0 Nucleated RBC % 0 Sodium 143 Potassium 3.9 Chloride 114 H Carbon Dioxide 22 Anion Gap 7 L BUN 7.9 Creatinine 1.2 Est GFR (CKD-EPI)AfAm 71.58 Est GFR (CKD-EPI)NonAf 61.76 Random Glucose 100 Calcium 8.2 L Blood Type A POSITIVE Antibody Screen Negative Crossmatch IS Only See Detail Active Medications Generic Name Dose Route Start Last Admin Trade Name Freq PRN Reason Stop Dose Admin Acetaminophen 650 mg 03/07/19 18:55 03/09/19 23:05 Tylenol - PO 650 mg Q4H PRN Administration PAIN LEVEL 1-5 Alvimopan 12 mg 03/13/19 08:00 Entereg Capsule (Restricted) - PO 03/13/19 08:01 ONCE ONE Piperacillin Sod/Tazobactam 50 mls @ 100 mls/hr 03/09/19 11:00 03/12/19 17:21 Sod 3.375 gm/ Dextrose IVPB 100 mls/hr Q8H-IV JESSIKA Administration Protocol Dextrose/Sodium Chloride 1,000 mls @ 125 mls/hr 03/11/19 09:00 03/12/19 17:20 D5-Ns - IV 125 mls/hr ASDIR JESSIKA Administration Metronidazole 500 mg 03/12/19 10:00 03/12/19 14:14 Flagyl - PO 03/12/19 22:01 500 mg TID JESSIKA Administration ASSESSMENT/PLAN: This is a 69 year old man with a history of HTN, hyperlipidemia, CVA who presented to the ED with dysuria, urinary urgency and frequency. # E. coli UTI, left colovesical fistula secondary to possible diverticulitis, possible psoas abscess - Continue Zosyn (day 5) -Flagyl - s/p cystoscopy, cystogram, L JJ stent insertion 03/06 - Maintain Oconnor catheter - MRI of pelvis done, result pending - Will need sigmoid resection -Pt spoke with surg and reported plan for surg on Sun following imaging tomorrow #Acute kidney injury - Likely secondary to left ureter obstruction with left hydronephrosis - Improving with IV fluid and left ureteral stent placement - Continue IV fluid - Continue to monitor BUN, creatinine #Anemia - anemia of chronic disease - ? component from hematuria - Transfused 1 unit PRBCs 03/08 - Continue to monitor hgb. 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 I reviewed the resident's note and discussed the case with the resident. I agree with the resident's findings and plan as documented. SUBJECTIVE: OBJECTIVE: ASSESSMENT AND PLAN:
[2019-03-13] MEDS ORDERED: PIPERACILLIN/TAZOBACTAM 3.375 GM VIAL IVPB ONE ×3 (01:18→20:19)
[2019-03-13] MEDS ORDERED: DEXTROSE 5%-WATER - 50 ML IVPB ONE ×3 (01:18→20:20)
[2019-03-13] MEDS: PIPERACILLIN/TAZOB 3.375 GM 3.375 GM in DEXTROSE 5%-WATER - 50 ML IVPB SCH ×3 (01:55→20:26)
[2019-03-13] MEDS ORDERED: PT OWN MED DRAWER 7, Y5N ONE (07:28)
[2019-03-13] MEDS ORDERED: ALVIMOPAN 12 MG CAP PO ONE (08:00)
[2019-03-13 08:32] LABS: BASO % 0.2 % (0-2.0); HEMATOCRIT 29.6 % (35.4-49); HEMOGLOBIN 9.6 GM/dL (11.7-16.9); MCH 27.4 pg (25.7-33.7); MCHC 32.4 g/dl (32.0-35.9); MEAN CELL VOLUME 84.6 fl (80-96); MEAN PLT VOLUME 6.4 fl (7.5-11.1); MONO % 2.8 % (3.8-10.2); PLATELET COUNT 376 K/MM3 (134-434); RBC 3.49 M/mm3 (4.00-5.60); RDW 15.3 % (11.9-15.9); WHITE BLOOD COUNT 11.2 K/mm3 (4.0-10.0)
[2019-03-13] MEDS ORDERED: PROPOFOL 20 ML ONE (08:39)
[2019-03-13] MEDS ORDERED: fentaNYL CITRATE 250 MCG/5 ML VIAL ONE (08:39)
[2019-03-13] MEDS ORDERED: ROCURONIUM BROMIDE 50 MG/5 ML SYRINGE ONE ×2 (08:39→11:01)
[2019-03-13] MEDS ORDERED: BACITRACIN 15 GM TUBE TOPICAL OINTMENT ONE (08:39)
[2019-03-13] MEDS ORDERED: MIDAZOLAM HCL 2 MG/2 ML SINGLE DOSE VIAL ONE ×2 (08:39)
[2019-03-13] MEDS ORDERED: SUCCINYLCHOLINE CHLORIDE 200 MG/10 ML SYRINGE ONE (08:39)
[2019-03-13 08:48] LABS: BLOOD UREA NITROGEN 5.6 mg/dL (7-18); CALCIUM 8.3 mg/dL (8.5-10.1); CREATININE 1.2 mg/dL (0.55-1.3); POTASSIUM 3.3 mmol/L (3.5-5.1)
[2019-03-13] MEDS ORDERED: BUPIVACAINE HCL/PF 0.5% (5 MG/ML) 30 ML VIAL IJ ONE ×2 (10:25)
[2019-03-13] MEDS ORDERED: DEXAMETHASONE SOD PHOSPHATE 4 MG/1 ML VIAL ONE (10:40)
[2019-03-13] MEDS ORDERED: HYDROmorphone HCl 2 MG/ML VIAL ONE ×2 (10:46→12:00)
[2019-03-13] MEDS ORDERED: LIDOCAINE HCL 1%, 10 MG/ML (20ML VIAL) ONE (12:14)
[2019-03-13] MEDS ORDERED: POTASSIUM CHLORIDE TABS 20 MEQ TABLET.ER (FP) PO ONE (12:30)
[2019-03-13] MEDS ORDERED: LIDOCAINE HCL/PF 2% SDV 5ML VIAL ONE (12:36)
[2019-03-13] MEDS ORDERED: METOPROLOL TARTRATE 5 MG/5 ML VIAL ONE (12:36)
[2019-03-13] MEDS ORDERED: MINERAL OIL/PETROLATUM,WHITE 3.5 GM TUBE ONE (12:36)
[2019-03-13] MEDS ORDERED: ACETAMINOPHEN INJECTION 100 ML IVPB ONE ×2 (12:52→14:12)
[2019-03-13] MEDS ORDERED: NEOSTIGMINE METHYLSULFATE 0.5 MG/ML - 10 ML MDV ONE (13:09)
[2019-03-13] MEDS ORDERED: GLYCOPYRROLATE 0.2 MG/1 ML VIAL ONE (13:09)
[2019-03-13] MEDS ORDERED: BENZOIN TINCTURE SWABSTICK TP ONE (13:22)
[2019-03-13] MEDS ORDERED: LACTATED RINGERS SOLUTION 1,000 ML/1,000 ML INFUS.BAG IV SCH ×2 (13:45→20:00)
[2019-03-13] MEDS ORDERED: HYDROmorphone *PCA* 10MG/50ML DISP.SYRIN PCA ONE (14:00)
[2019-03-13] MEDS ORDERED: ONDANSETRON 4 MG/2 ML VIAL IVPUSH PRN (14:02)
[2019-03-13] MEDS ORDERED: HYDROmorphone *PCA* 10MG/50ML DISP.SYRIN ONE (14:12)
[2019-03-13] MEDS ORDERED: ACETAMINOPHEN 1000 MG/100 ML VIAL (NON FORMULARY) IVPB ONE (14:43)
--- NOTE | 2019-03-13 16:29 | PN ---
Progress Note, Physician History of Present Illness: S/P ABDOMINAL SURGERY AWAKE, ALERT NO C/O ABDOMINAL PAIN NO F/C URINE C/S e coli BC (-) WBC SL ELEVATED - Current Medication List Current Medications: Active Medications Acetaminophen (Ofirmev Injection -) 1,000 mg IVPB Q6H PRN PRN Reason: PAIN Hydromorphone HCl (Hydromorphone 10 Mg/50 Ml-Ns) 10 mg CORK SLABS SAWYER CORK SLABS SAWYER JESSIKA; Protocol Stop: 03/20/19 14:03 Lactated Ringer's (Lactated Ringers Solution) 1,000 ml in 1,000 mls @ 83 mls/ hr IV ASDIR JESSIKA Lactated Ringer's (Lactated Ringers Solution) 1,000 mls @ 125 mls/hr IV ASDIR JESSIKA Ondansetron HCl (Zofran Injection) 4 mg IVPUSH Q6H PRN PRN Reason: NAUSEA AND/OR VOMITING - Objective Vital Signs: Vital Signs Temperature 98.0 F 03/13/19 13:50 Pulse Rate 66 03/13/19 15:20 Respiratory Rate 16 03/13/19 15:20 Blood Pressure 116/81 03/13/19 15:20 O2 Sat by Pulse Oximetry (%) 100 03/13/19 15:20 Constitutional: Yes: No Distress Cardiovascular: Yes: Regular Rate and Rhythm, S1, S2 Respiratory: Yes: CTA Bilaterally Gastrointestinal: Yes: Soft, Other (+OSTOMY) Edema: No Labs: CBC, BMP 03/13/19 08:15 03/13/19 08:15 INR, PTT INR 1.38 (0.83-1.09) H 03/06/19 06:00 Assessment/Plan S/P LAPAROTOMY, PARTIAL COLON RESECTION, COLOSTOMY COLOVESICULAR FISTULA PSOAS ABSCESS OBSTRUCTIVE UROPATHY S/P URETERAL STENT UTI CONTINUE ZOSYN
[2019-03-13] MEDS: HYDROmorphone *PCA* 10MG/50ML DISP.SYRIN PCA SCH (16:50)
[2019-03-13] MEDS: LACTATED RINGERS SOLUTION 1,000 ML IV SCH ×2 (17:45→17:46)
[2019-03-13] MEDS: KCL 10 MEQ IVPB 10 MEQ/100 ML INFUS.BAG IVPB SCH ×2 (17:45→21:35)
--- NOTE | 2019-03-13 18:01 | OP ---
Operative Note - Note: Operative Date: 03/13/19 Pre-Operative Diagnosis: colovesical fistula Operation: diagnostic laparoscopy, laparotomy, small bowel resection, sigmoid end colostomy and Tyler's pouch Findings: colovseical fistula, inflammatory mass of distal sigmoid colon firmly adherent to retroperitoneum, small bowel to sigmoid fistula Post-Operative Diagnosis: Same as Pre-op Surgeon: Parker Ryan Shell Machine Operator: Mamie Willard Anesthesia: General Specimens Removed: small bowel, pericolic fat and inflammatory tissue Estimated Blood Loss (mls): 150 Operative Report Dictated: Yes
--- NOTE | 2019-03-13 18:04 | PN ---
Teaching Attending Note Name of Resident: Pieter Castro ATTENDING PHYSICIAN STATEMENT I saw and evaluated the patient. I reviewed the resident's note and discussed the case with the resident. I agree with the resident's findings and plan as documented with exceptions below. SUBJECTIVE: Patient seen and examined. Just back from OR, denies pain, sleeping. OBJECTIVE: Vital Signs Period Temp Pulse Resp BP Sys/Zuniga Pulse Ox Last 24 Hr 97.7 F-98.2 F 56-100 16-20 100-155/74-104 97-100 Intake & Output 03/10/19 03/11/19 03/12/19 03/13/19 23:59 23:59 23:59 23:59 Intake Total 600 3130 1100 4250 Output Total 1500 2700 1600 670 Balance -900 430 -500 3580 Weight 166 lb General: lying in bed, drowsy, no acute distress Neck: soft, supple Chest: CTAB, no rales or wheezing Abdomen:Soft, left colostomy, lower midline surgical dressing, pos bowel sounds appreciated, distended, mild tenderness around the surgical site Extremities: no edema Home Medications Medication Instructions Recorded Metoprolol Succinate [Toprol XL -] 25 mg PO DAILY 10/25/16 Rosuvastatin Calcium [Crestor] 10 mg PO HS 10/25/16 Aspirin Coated [Ecotrin -] 325 mg PO DAILY 11/29/16 Olmesartan Medoxomil [Benicar -] 20 mg PO DAILY 11/29/16 Amlodipine Besylate [Norvasc -] 5 mg PO DAILY 03/05/19 Hydrochlorothiazide 12.5 mg PO DAILY 03/05/19 Active Medications Acetaminophen (Ofirmev Injection -) 1,000 mg IVPB Q6H PRN PRN Reason: PAIN Hydromorphone HCl (Hydromorphone 10 Mg/50 Ml-Ns) 10 mg BACON SKINNER BACON SKINNER JESSIKA; Protocol Stop: 03/20/19 14:03 Last Admin: 03/13/19 16:50 Dose: Not Given Lactated Ringer's (Lactated Ringers Solution) 1,000 mls @ 125 mls/hr IV ASDIR JESSIKA Last Admin: 03/13/19 17:46 Dose: Not Given Potassium Chloride (Potassium Chloride 10 Meq Premix Ivpb -) 10 meq in 100 mls @ 100 mls/hr IVPB Q60M JESSIKA Stop: 03/13/19 19:29 Last Admin: 03/13/19 17:45 Dose: 100 mls/hr Laboratory Results - last 24 hr 03/12/19 03/13/19 03/13/19 12:49 08:15 08:15 WBC 11.2 H RBC 3.49 L Hgb 9.6 L Hct 29.6 L MCV 84.6 MCH 27.4 MCHC 32.4 RDW 15.3 Plt Count 376 MPV 6.4 L Absolute Neuts (auto) 10.1 H Neutrophils % 90.0 H D Lymphocytes % 7.0 L D Monocytes % 2.8 L Eosinophils % 0.0 D Basophils % 0.2 Nucleated RBC % 0 Sodium 145 Potassium 3.3 L Chloride 112 H Carbon Dioxide 23 Anion Gap 9 BUN 5.6 L Creatinine 1.2 Est GFR (CKD-EPI)AfAm 71.58 Est GFR (CKD-EPI)NonAf 61.76 Random Glucose 113 H Calcium 8.3 L Crossmatch See Detail Microbiology 03/06/19 13:18 Blood - Peripheral Venous Blood Culture - Final NO GROWTH AFTER 5 DAYS INCUBATION 03/06/19 13:10 Blood - Peripheral Venous Blood Culture - Final NO GROWTH AFTER 5 DAYS INCUBATION 03/09/19 07:35 Urine - Urine Manzo Urine Culture - Final Lactose Fermenting Neg Bacilli 03/05/19 16:51 Urine - Urine Clean Catch Urine Culture - Final Escherichia Coli ASSESSMENT AND PLAN: 69 year old man with a history of HTN, hyperlipidemia, CVA who presented to the ED with dysuria, urinary urgency and frequency. -Left colovesical fistula/Sigmoid inflammatory mass adherent to retroperitoneuma /small bowel sigmoid fistula s/p diagnostic laparoscopy, laparotomy, small bowel resection, sigmoid end colostomy and Tyler's pouch 03/13 -s/p cystoscopy/cystogram/L JJ stent insertion 03/06 -Complicated E. Coli UTI -SANDY/Left ureteral obstruction/left hydronephrosis -Anemia of chronic disease -Thrombocytosis, likely reactive from above -HTN -HLD -Possible h/o CVA -Pancreatic cyst Plan: post-op today, doing well. Zosyn day 6, ID input noted Surgery/urology input noted. IVF, NPO Advance po per surgery. . Maintain manzo catheter. MRi pelvis noted, Discussed with Dr. Tripathi For bowel prep. s/p 1 unit PRBC 03/08. Hold BP meds for now. DVTPPX per surgery Dispo pending above and clinical improvement Discussed with patient and nursing, all questions answered.
[2019-03-13] MEDS ORDERED: DEXTROSE 5%-LACTATED RINGERS 1,000 ML IV SCH (18:15)
--- NOTE | 2019-03-13 22:13 | OP ---
DATE OF OPERATION: 03/13/2019 PROCEDURE: Diagnostic laparoscopy converted to exploratory laparotomy, small bowel resection, and sigmoid colostomy with Tiffanie's pouch. PREOPERATIVE DIAGNOSIS: Colovesical fistula. 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 SURGEON: Parker Ryan MD MILLER ROD MILL: Anthony Willard MD ANESTHESIA: General endotracheal. FINDINGS: This is a 69-year-old male admitted for some complaint of hematuria, anemia and on CT scan showed colovesical fistula and a small psoas abscess with a left hydronephrosis. Patient underwent initial cystoscopy for the hydronephrosis with double J stent placement of the left ureter and with findings of a colovesical fistula on cystoscopy. Patient was placed on intravenous antibiotics, and a pelvic MRI revealed small psoas abscess. Due to the concern of a concomitant infection and possible ongoing fistula from the sigmoid colon to the retroperitoneum, patient is advised surgical intervention. Patient has a history of perforated diverticulitis in 2010. Consent was obtained after discussion of the risks, benefits, and alternatives of the procedure. DESCRIPTION OF PROCEDURE: Patient was brought to the operating room and placed in supine position. General endotracheal anesthesia was administered. The patient was then placed in modified lithotomy position. The abdomen was prepped and draped in the usual sterile fashion. Using 0.5% Marcaine, local anesthesia was administered to the proposed incision sites. The peritoneal cavity was entered using the Optiview technique via 5-mm supraumbilical incision. Using a 5-mm 0-degree scope inserted in a 5-mm optical port, pneumoperitoneum was established. Another 5-mm port was inserted into the left upper quadrant to the right of the umbilicus, and a 12- mm port was inserted into the right lower quadrant close to the inguinal canal. The patient was then placed in steep Trendelenburg left side down position. There was a small amount of ascites fluid, and inflammatory mass was noted at the distal sigmoid colon with a loop of distal small bowel adherent to the area of the inflammatory mass. It was decided upon to do a laparotomy, and a lower abdominal midline incision was made using scalpel blade No. 10. Further dissection using Bovie cautery was done until the linea alba was encountered. This was incised using Bovie cautery to enter the peritoneal cavity. A bleeding inferior epigastric vein was noted, and this was packed and later clipped with medium sized hemoclips for hemorrhage control. The Herminio retractor was applied, and the bowels were packed towards the right upper quadrant. The adherent loop of small bowel was then carefully dissected away from the inflammatory mass using Metzenbaum scissors. Upon release of the adhesion, a 1-cm perforation was noted at the antimesenteric border of the small bowel, so the small bowel was resected, and the anastomosed [id number] using DONNA 60/3.5-mm stapling device. The common enterotomy was closed with a TIA 60 stapling device. The mesenteric defect was apposed with a continuous 3-0 suture. Afterwards, attempt to mobilize the inflammatory mass was made, however the mass, which was rock hard, was noted to be firmly adherent to the retroperitoneum. Due to concern of involvement of the iliac vessels, it was decided upon to perform a colostomy and leave the inflammatory mass in situ. A small piece of the inflammatory mass was sent for frozen section, which was reported as inflammatory tissue. The sigmoid colon was transected about 1 cm above the inflammatory mass using DONNA 60 stapling device. The White line of Toldt was incised using the Bovie cautery all the way towards the descending colon. The sigmoid mesocolon was also serially clamped and ligated to mobilize the sigmoid colon until an adequate length was achieved for the end colostomy. The end colostomy was constructed by making a circular incision of the left lower quadrant skin using Bovie cautery and incising the abdominal wall muscles with Bovie cautery to admit the surgeon's 2 digits. The sigmoid colon was then exteriorized, and 4 anchoring sutures to the fascia were made to prevent retraction of the colostomy using Vicryl 3-0 sutures. The pelvic cavity was then copiously irrigated with sterile normal saline until the return was clear. The ports were removed. A Shahid-Nowak No. 10 drain was deployed to the pelvis close to the area of the inflammatory mass and exited using the right lower quadrant port incision site. This was then connected to bulb suction and anchored to the skin with nylon 2-0. The wound was closed with a continuous PDS loop No. 1 suture for the fascia and emil for the skin. The colostomy was matured by opening the staple line and anchoring the bowel wall to the skin with Vicryl 3-0 sutures. A colostomy bag was deployed. Afterwards, the patient was successfully extubated and transferred to the post anesthesia care unit in satisfactory condition. Estimated blood loss was about 150 mL. Wound class, contaminated due to spillage of the small bowel contents. Patient was already on intravenous antibiotics upon admission. Amadeo [id number] MTDD
[2019-03-14] MEDS: PIPERACILLIN/TAZOB 3.375 GM 3.375 GM in DEXTROSE 5%-WATER - 50 ML IVPB SCH ×3 (02:36→17:18)
[2019-03-14] MEDS ORDERED: PIPERACILLIN/TAZOBACTAM 3.375 GM VIAL IVPB ONE ×3 (05:05→17:09)
[2019-03-14] MEDS ORDERED: DEXTROSE 5%-WATER - 50 ML IVPB ONE ×3 (05:05→17:09)
--- NOTE | 2019-03-14 09:01 | PN ---
Progress Note, Physician Chief Complaint: POD1 s/p open colectomy - Current Medication List Current Medications: Active Medications Acetaminophen (Ofirmev Injection -) 1,000 mg IVPB Q6H PRN PRN Reason: PAIN Hydromorphone HCl (Hydromorphone 10 Mg/50 Ml-Ns) 10 mg GUEST SERVICE TEAM LEADER GUEST SERVICE TEAM LEADER JESSIKA; Protocol Stop: 03/20/19 14:03 Last Admin: 03/13/19 16:50 Dose: Not Given Piperacillin Sod/Tazobactam (Sod 3.375 gm/ Dextrose) 50 mls @ 100 mls/hr IVPB Q8H-IV JESSIKA; Protocol Last Admin: 03/14/19 02:36 Dose: 100 mls/hr Lactated Ringer's (Lactated Ringers Solution) 1,000 ml in 1,000 mls @ 100 mls/ hr IV ASDIR JESSIKA Last Admin: 03/13/19 20:27 Dose: 100 mls/hr - Objective Vital Signs: Vital Signs Temperature 98.1 F 03/14/19 06:34 Pulse Rate 87 03/14/19 06:34 Respiratory Rate 18 03/14/19 06:34 Blood Pressure 143/95 03/14/19 06:34 O2 Sat by Pulse Oximetry (%) 98 03/14/19 05:00 Labs: CBC, BMP 03/13/19 08:15 03/13/19 08:15 INR, PTT INR 1.38 (0.83-1.09) H 03/06/19 06:00 Assessment/Plan Pt has c/o pain; he's only used GUEST SERVICE TEAM LEADER sparingly, instructed on proper use of GUEST SERVICE TEAM LEADER. Otherwise doing well, VSS no N/V, no anesthetic issues/complications noted
--- NOTE | 2019-03-14 10:40 | PN ---
Teaching Attending Note Name of Resident: Pieter Castro ATTENDING PHYSICIAN STATEMENT I saw and evaluated the patient. I reviewed the resident's note and discussed the case with the resident. I agree with the resident's findings and plan as documented with exceptions below. SUBJECTIVE: Patient seen and examined. c/o abdominal pain, refuses to get out of bed today. Passing gas, bm in the colostomy OBJECTIVE: Vital Signs Period Temp Pulse Resp BP Sys/Zuniga Pulse Ox Last 24 Hr 97.7 F-98.1 F 56-90 16-20 100-148/72-95 95-100 Intake & Output 03/11/19 03/12/19 03/13/19 03/14/19 23:59 23:59 23:59 23:59 Intake Total 3130 1100 4900 1300 Output Total 2700 1600 980 Balance 430 -500 3920 1300 Weight 166 lb General: sitting in bed, mild distress from pain Chest; decreased breath sounds at bases, no rales or wheezing Abdomen:Soft, distended, left colostomy with brown stool, midline incision with clean dressing, LEANDER drain with serosanguinous fluid, pos bowel sounds, tenderness around the surgical site, no voluntary or involuntary guarding or rigidity noted Extremities: no edema Home Medications Medication Instructions Recorded Metoprolol Succinate [Toprol XL -] 25 mg PO DAILY 10/25/16 Rosuvastatin Calcium [Crestor] 10 mg PO HS 10/25/16 Aspirin Coated [Ecotrin -] 325 mg PO DAILY 11/29/16 Olmesartan Medoxomil [Benicar -] 20 mg PO DAILY 11/29/16 Amlodipine Besylate [Norvasc -] 5 mg PO DAILY 03/05/19 Hydrochlorothiazide 12.5 mg PO DAILY 03/05/19 Active Medications Acetaminophen (Ofirmev Injection -) 1,000 mg IVPB Q6H PRN PRN Reason: PAIN Hydromorphone HCl (Hydromorphone 10 Mg/50 Ml-Ns) 10 mg LOWER SCHOOL MUSIC TEACHER LOWER SCHOOL MUSIC TEACHER JESSIKA; Protocol Stop: 03/20/19 14:03 Last Admin: 03/13/19 16:50 Dose: Not Given Piperacillin Sod/Tazobactam (Sod 3.375 gm/ Dextrose) 50 mls @ 100 mls/hr IVPB Q8H-IV JESSIKA; Protocol Last Admin: 03/14/19 09:06 Dose: 100 mls/hr Lactated Ringer's (Lactated Ringers Solution) 1,000 ml in 1,000 mls @ 100 mls/ hr IV ASDIR JESSIKA Last Admin: 03/13/19 20:27 Dose: 100 mls/hr Laboratory Results - last 24 hr 03/12/19 12:49 Crossmatch See Detail Microbiology 03/06/19 13:18 Blood - Peripheral Venous Blood Culture - Final NO GROWTH AFTER 5 DAYS INCUBATION 03/06/19 13:10 Blood - Peripheral Venous Blood Culture - Final NO GROWTH AFTER 5 DAYS INCUBATION 03/09/19 07:35 Urine - Urine Manzo Urine Culture - Final Lactose Fermenting Neg Bacilli 03/05/19 16:51 Urine - Urine Clean Catch Urine Culture - Final Escherichia Coli ASSESSMENT AND PLAN: 69 year old man with a history of HTN, hyperlipidemia, CVA who presented to the ED with dysuria, urinary urgency and frequency. 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 Coli UTI -SANDY/Left ureteral obstruction/left hydronephrosis -Anemia of chronic disease -Thrombocytosis, likely reactive from above -Hypokalemia -HTN -HLD -Possible h/o CVA -Pancreatic cyst Plan: post op pain, advised to use L[employer] SCHOOL MUSIC TEACHER Pos stool in colostomy, surgery input noted, diet advanced to clear liquid. Continue IVF. Zosyn day 7, ID input noted. Urology input noted. dc manzo in 24 hours hours patient encouraged OOB, incentive spirometry and appropriate use of L[employer] SCHOOL MUSIC TEACHER. s/p 1 unit PRBC 03/08. Hold BP meds for now. Replete K prn. DVTPPX per surgery Dispo pending clinical improvement Discussed with patient and nursing, all questions answered.
--- NOTE | 2019-03-14 11:16 | PN ---
Progress Note, Physician History of Present Illness: POST OP DAY # 1 AWAKE, ALERT C/O ABDOMINAL PAIN NO F/C URINE C/S e coli BC (-) - Current Medication List Current Medications: Active Medications Acetaminophen (Ofirmev Injection -) 1,000 mg IVPB Q6H PRN PRN Reason: PAIN Hydromorphone HCl (Hydromorphone 10 Mg/50 Ml-Ns) 10 mg RETAIL TIRE SALES MANAGER RETAIL TIRE SALES MANAGER JESSIKA; Protocol Stop: 03/20/19 14:03 Last Admin: 03/13/19 16:50 Dose: Not Given Piperacillin Sod/Tazobactam (Sod 3.375 gm/ Dextrose) 50 mls @ 100 mls/hr IVPB Q8H-IV JESSIKA; Protocol Last Admin: 03/14/19 09:06 Dose: 100 mls/hr Lactated Ringer's (Lactated Ringers Solution) 1,000 ml in 1,000 mls @ 100 mls/ hr IV ASDIR JESSIKA Last Admin: 03/13/19 20:27 Dose: 100 mls/hr - Objective Vital Signs: Vital Signs Temperature 98.1 F 03/14/19 09:05 Pulse Rate 90 03/14/19 09:05 Respiratory Rate 18 03/14/19 09:05 Blood Pressure 138/81 03/14/19 09:05 O2 Sat by Pulse Oximetry (%) 95 03/14/19 09:00 Constitutional: Yes: No Distress Cardiovascular: Yes: Regular Rate and Rhythm, S1, S2 Respiratory: Yes: CTA Bilaterally Gastrointestinal: Yes: Normal Bowel Sounds, Soft, Other (POST OP DRESSING IN PLACE + OSTOMY) Edema: No Labs: CBC, BMP 03/13/19 08:15 03/13/19 08:15 INR, PTT INR 1.38 (0.83-1.09) H 03/06/19 06:00 Assessment/Plan S/P LAPAROTOMY, PARTIAL COLON RESECTION, COLOSTOMY POD #1 PSOAS ABSCESS OBSTRUCTIVE UROPATHY S/P URETERAL STENT UTI CONTINUE ZOSYN DAY #9
[2019-03-14] MEDS: ACETAMINOPHEN 1000 MG/100 ML VIAL (NON FORMULARY) IVPB PRN ×3 (11:30→23:48)
--- NOTE | 2019-03-14 11:42 | PN ---
Physical Exam: SUBJECTIVE: Patient seen and examined at bedside. Pt is comfortable. No complaints. Surgery went well. OBJECTIVE: Vital Signs Period Temp Pulse Resp BP Sys/Zuniga Pulse Ox Last 24 Hr 97.7 F-98.1 F 56-90 16-20 100-148/72-95 95-100 Gen: comfortable in bed HEENT: NCAT, EOMI Neck: Supple, no jvd Cardio: rrr, Normal s1s2, sys murmur Pulm: cta b/l Abd: soft, midline surgical sites, colostomy in place with stool, LEANDER drain with serosang, tender at surgical sites ext: no edema Active Medications Generic Name Dose Route Start Last Admin Trade Name Freq PRN Reason Stop Dose Admin Acetaminophen 1,000 mg 03/13/19 13:34 03/14/19 11:30 Ofirmev Injection - IVPB 1,000 mg Q6H PRN Administration PAIN Hydromorphone HCl 10 mg 03/13/19 14:15 03/13/19 16:50 Hydromorphone 10 Mg/50 Ml-Ns COMMUNITY HEALTH COORDINATOR 03/20/19 14:03 Not Given COMMUNITY HEALTH COORDINATOR JESSIKA Protocol Piperacillin Sod/Tazobactam 50 mls @ 100 mls/hr 03/13/19 18:15 03/14/19 09:06 Sod 3.375 gm/ Dextrose IVPB 100 mls/hr Q8H-IV JESSIKA Administration Protocol Lactated Ringer's 1,000 ml in 1,000 mls @ 100 mls/hr 03/13/19 20:00 03/13/19 20:27 Lactated Ringers Solution IV 100 mls/hr ASDIR JESSIKA Administration ASSESSMENT/PLAN: This is a 69 year old man with a history of HTN, hyperlipidemia, CVA who presented to the ED with dysuria, urinary urgency and frequency. # E. coli UTI, left colovesical fistula secondary to possible diverticulitis, possible psoas abscess - Continue Zosyn - Flagyl - s/p cystoscopy, cystogram, L JJ stent insertion 03/06 - Maintain Oconnor catheter - MRI of pelvis done - s/p Tyler procedure with colostomy - on clears - incentive spirometer - monitor LEANDER #Acute kidney injury - Likely secondary to left ureter obstruction with left hydronephrosis - Improving with IV fluid and left ureteral stent placement - Continue IV fluid - Continue to monitor BUN, creatinine #Anemia - anemia of chronic disease - ? component from hematuria - Transfused 1 unit PRBCs 03/08 - Continue to monitor hgb. 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 I reviewed the resident's note and discussed the case with the resident. I agree with the resident's findings and plan as documented. SUBJECTIVE: OBJECTIVE: ASSESSMENT AND PLAN:
--- NOTE | 2019-03-14 12:42 | PN ---
Progress Note, Physician Chief Complaint: colovesical fistula History of Present Illness: POD # 1 S/p laparotomy, sb resection, sigmoid end colostomy Pain score of 9 Denies nausea or vomiting - Current Medication List Current Medications: Active Medications Acetaminophen (Ofirmev Injection -) 1,000 mg IVPB Q6H PRN PRN Reason: PAIN Last Admin: 03/14/19 11:30 Dose: 1,000 mg Hydromorphone HCl (Hydromorphone 10 Mg/50 Ml-Ns) 10 mg FATS AND OILS LOADER FATS AND OILS LOADER JESSIKA; Protocol Stop: 03/20/19 14:03 Last Admin: 03/13/19 16:50 Dose: Not Given Piperacillin Sod/Tazobactam (Sod 3.375 gm/ Dextrose) 50 mls @ 100 mls/hr IVPB Q8H-IV JESSIKA; Protocol Last Admin: 03/14/19 09:06 Dose: 100 mls/hr Lactated Ringer's (Lactated Ringers Solution) 1,000 ml in 1,000 mls @ 75 mls/ hr IV ASDIR JESSIKA - Objective Vital Signs: Vital Signs Temperature 98.1 F 03/14/19 09:05 Pulse Rate 90 03/14/19 09:05 Respiratory Rate 18 03/14/19 09:05 Blood Pressure 138/81 03/14/19 09:05 O2 Sat by Pulse Oximetry (%) 95 03/14/19 09:00 Constitutional: Yes: Anxious Cardiovascular: Yes: Regular Rate and Rhythm Respiratory: Yes: CTA Bilaterally Gastrointestinal: Yes: Abdomen, Obese, Other (colosotomy withn liquid brownish stool) Genitourinary: Yes: Oconnor Present (clear urine) Edema: Yes Edema: LUE: 1+, RUE: 1+, LLE: 1+, RLE: 1+ Peripheral Pulses WNL: Yes Wound/Incision: Yes: Dressing Dry and Intact Labs: CBC, BMP 03/13/19 08:15 03/13/19 08:15 INR, PTT INR 1.38 (0.83-1.09) H 03/06/19 06:00 Problem List - Problems (1) Colovesical fistula Assessment/Plan: clear liquid diet continue abx f/u post-op labs OOB, IS, DVT, & GI prophylaxis Code(s): N32.1 - VESICOINTESTINAL FISTULA
[2019-03-14 13:02] LABS: BASO % 0.2 % (0-2.0); EOS % 0.8 % (0-4.5); HEMATOCRIT 24.9 % (35.4-49); HEMOGLOBIN 8.2 GM/dL (11.7-16.9); LYMPH % 9.3 % (8-40); MCH 27.8 pg (25.7-33.7); MEAN CELL VOLUME 84.3 fl (80-96); MEAN PLT VOLUME 6.8 fl (7.5-11.1); MONO % 6.9 % (3.8-10.2); NEUT % 82.8 % (42.8-82.8); PLATELET COUNT 296 K/MM3 (134-434); RBC 2.96 M/mm3 (4.00-5.60); RDW 15.9 % (11.9-15.9); WHITE BLOOD COUNT 10.4 K/mm3 (4.0-10.0)
[2019-03-14] MEDS: HYDROmorphone *PCA* 10MG/50ML DISP.SYRIN PCA SCH (13:30)
[2019-03-14] MEDS: LACTATED RINGERS SOLUTION 1,000 ML/1,000 ML INFUS.BAG IV SCH ×2 (13:30→22:20)
[2019-03-14 13:32] LABS: ALBUMIN 1.6 g/dl (3.4-5.0); BILIRUBIN,TOTAL 0.4 mg/dL (0.2-1); BLOOD UREA NITROGEN 5.4 mg/dL (7-18); POTASSIUM 3.7 mmol/L (3.5-5.1); TOT PROT 4.7 g/dl (6.4-8.2)
[2019-03-14] MEDS: ONDANSETRON 4 MG TABLET PO PRN (15:42)
[2019-03-15] MEDS ORDERED: DEXTROSE 5%-WATER - 50 ML IVPB ONE ×3 (02:20→17:02)
[2019-03-15] MEDS ORDERED: PIPERACILLIN/TAZOBACTAM 3.375 GM VIAL IVPB ONE ×3 (02:20→17:01)
[2019-03-15] MEDS: PIPERACILLIN/TAZOB 3.375 GM 3.375 GM in DEXTROSE 5%-WATER - 50 ML IVPB SCH ×3 (02:23→17:17)
[2019-03-15] MEDS: ONDANSETRON 4 MG TABLET PO PRN (03:49)
[2019-03-15] MEDS ORDERED: PROCHLORPERAZINE INJECTION 10 MG/2 ML VIAL IVPB ONE (06:34)
[2019-03-15 07:57] LABS: BLOOD UREA NITROGEN 8.1 mg/dL (7-18); CALCIUM 8.2 mg/dL (8.5-10.1); CREATININE 1.1 mg/dL (0.55-1.3); POTASSIUM 3.7 mmol/L (3.5-5.1)
[2019-03-15 09:24] LABS: MCH 27.4 pg (25.7-33.7); MCHC 32.1 g/dl (32.0-35.9); MEAN CELL VOLUME 85.3 fl (80-96); MEAN PLT VOLUME 7.1 fl (7.5-11.1); PLATELET COUNT 364 K/MM3 (134-434); RBC 3.28 M/mm3 (4.00-5.60); RDW 16.5 % (11.9-15.9); WHITE BLOOD COUNT 14.6 K/mm3 (4.0-10.0)
--- NOTE | 2019-03-15 11:54 | PN ---
Progress Note, Physician Chief Complaint: colovesical fistula History of Present Illness: POD # 2 S/p laparotomy, sb resection, sigmoid end colostomy Pain score of 9 Denies nausea or vomiting - Current Medication List Current Medications: Active Medications Acetaminophen (Ofirmev Injection -) 1,000 mg IVPB Q6H PRN PRN Reason: PAIN Last Admin: 03/14/19 23:48 Dose: 1,000 mg Hydromorphone HCl (Hydromorphone 10 Mg/50 Ml-Ns) 10 mg BROKER BROKER JESSIKA; Protocol Stop: 03/20/19 14:03 Last Admin: 03/14/19 13:30 Dose: Not Given Piperacillin Sod/Tazobactam (Sod 3.375 gm/ Dextrose) 50 mls @ 100 mls/hr IVPB Q8H-IV JESSIKA; Protocol Last Admin: 03/15/19 09:28 Dose: 100 mls/hr Lactated Ringer's (Lactated Ringers Solution) 1,000 ml in 1,000 mls @ 75 mls/ hr IV ASDIR JESSIKA Last Admin: 03/14/19 22:20 Dose: 75 mls/hr Ondansetron HCl (Zofran -) 4 mg PO Q8H PRN PRN Reason: NAUSEA Last Admin: 03/15/19 03:49 Dose: 4 mg - Objective Vital Signs: Vital Signs Temperature 98.3 F 03/15/19 07:58 Pulse Rate 113 H 03/15/19 07:58 Respiratory Rate 20 03/15/19 07:58 Blood Pressure 158/101 H 03/15/19 07:58 O2 Sat by Pulse Oximetry (%) 98 03/15/19 05:00 Labs: CBC, BMP 03/15/19 08:25 03/15/19 06:55 INR, PTT INR 1.38 (0.83-1.09) H 03/06/19 06:00 Problem List - Problems (1) Colovesical fistula Code(s): N32.1 - VESICOINTESTINAL FISTULA
[2019-03-15] MEDS: D5-1/2NS+20 MEQ KCL - 20 MEQ/1,000 ML INFUS.BAG IV SCH (13:06)
[2019-03-15] MEDS: HEPARIN NA (PORCINE) 5,000 UNITS/ML 1ML VIAL SQ SCH ×2 (13:08→21:12)
[2019-03-15] MEDS: LACTATED RINGERS SOLUTION 1,000 ML/1,000 ML INFUS.BAG IV SCH (17:17)
--- NOTE | 2019-03-15 17:33 | PN ---
Progress Note (short form) - Note Progress Note: Anesthesia CASHIER MANAGER round POD#3. S/P laparotomy, small bowel resection, sigmoid colostomy, polk's pouch under GA, pat seen and examined. VSS. Pain well controlled with po meds. Pain score 1-3 / 10. Ambulating. D/C CASHIER MANAGER, continue with IV Tylenol, Kaldolor as needed.
--- NOTE | 2019-03-15 21:29 | PN ---
Progress Note, Physician History of Present Illness: No new complaints NGT still draining - Current Medication List Current Medications: Active Medications Acetaminophen (Ofirmev Injection -) 1,000 mg IVPB Q6H PRN PRN Reason: PAIN Last Admin: 03/14/19 23:48 Dose: 1,000 mg Heparin Sodium (Porcine) (Heparin -) 5,000 unit SQ BID JESSIKA Last Admin: 03/15/19 21:12 Dose: 5,000 unit Piperacillin Sod/Tazobactam (Sod 3.375 gm/ Dextrose) 50 mls @ 100 mls/hr IVPB Q8H-IV JESSIKA; Protocol Last Admin: 03/15/19 17:17 Dose: 100 mls/hr Potassium Chloride/Dextrose/Sod Cl (D5-1/2ns+20 Meq Kcl -) 20 meq in 1,000 mls @ 75 mls/hr IV ASDIR JESSIKA Last Admin: 03/15/19 13:06 Dose: 75 mls/hr Ondansetron HCl (Zofran -) 4 mg PO Q8H PRN PRN Reason: NAUSEA Last Admin: 03/15/19 03:49 Dose: 4 mg - Objective Vital Signs: Vital Signs Temperature 98.8 F 03/15/19 20:18 Pulse Rate 102 H 03/15/19 20:18 Respiratory Rate 18 03/15/19 20:18 Blood Pressure 154/99 03/15/19 20:18 O2 Sat by Pulse Oximetry (%) 96 03/15/19 20:34 Constitutional: Yes: Other ((+) NGT) HENT: Yes: WNL Neck: Yes: WNL, Supple Cardiovascular: Yes: WNL, Regular Rate and Rhythm Respiratory: Yes: WNL, Regular, CTA Bilaterally Gastrointestinal: Yes: Normal Bowel Sounds, Soft, Other ((+) RLQ colostomy) Edema: No Labs: CBC, BMP 03/15/19 08:25 03/15/19 06:55 INR, PTT INR 1.38 (0.83-1.09) H 03/06/19 06:00 Problem List - Problems (1) Colovesical fistula Assessment/Plan: S/P laparotomy/Small bowel resection/sigmoid resection ?Due to ureter obstruction vs psoas abcess Cont NGT as per surgery Cont IVF and pain management Cont IV zosyn Repeat urine culture is negative WBC slightly elevated and cont to monitor Code(s): N32.1 - VESICOINTESTINAL FISTULA (2) SANDY (acute kidney injury) Assessment/Plan: Due to lt ureter obstruction and lt ureter stent placement Code(s): N17.9 - ACUTE KIDNEY FAILURE, UNSPECIFIED (3) Anemia Assessment/Plan: Cont to monitor H/H Code(s): D64.9 - ANEMIA, UNSPECIFIED (4) HTN (hypertension) Assessment/Plan: Lopressor to be continued Cont IV lasix Code(s): I10 - ESSENTIAL (PRIMARY) HYPERTENSION (5) UTI (urinary tract infection) Assessment/Plan: Due to E.coli Cont IV zosyn Repeat urine culture is negative Code(s): N39.0 - URINARY TRACT INFECTION, SITE NOT SPECIFIED
[2019-03-16] MEDS ORDERED: DEXTROSE 5%-WATER - 50 ML IVPB ONE ×3 (01:03→17:30)
[2019-03-16] MEDS ORDERED: PIPERACILLIN/TAZOBACTAM 3.375 GM VIAL IVPB ONE ×3 (01:03→17:30)
[2019-03-16] MEDS: PIPERACILLIN/TAZOB 3.375 GM 3.375 GM in DEXTROSE 5%-WATER - 50 ML IVPB SCH ×3 (01:07→17:41)
[2019-03-16] MEDS: D5-1/2NS+20 MEQ KCL - 20 MEQ/1,000 ML INFUS.BAG IV SCH (03:39)
[2019-03-16 07:25] LABS: BASO % 0.2 % (0-2.0); EOS % 0.2 % (0-4.5); HEMATOCRIT 22.2 % (35.4-49); HEMOGLOBIN 7.2 GM/dL (11.7-16.9); LYMPH % 6.8 % (8-40); MCH 27.5 pg (25.7-33.7); MCHC 32.5 g/dl (32.0-35.9); MEAN CELL VOLUME 84.5 fl (80-96); MEAN PLT VOLUME 6.9 fl (7.5-11.1); MONO % 6.3 % (3.8-10.2); NEUT % 86.5 % (42.8-82.8); PLATELET COUNT 279 K/MM3 (134-434); RBC 2.62 M/mm3 (4.00-5.60); RDW 15.5 % (11.9-15.9); WHITE BLOOD COUNT 13.8 K/mm3 (4.0-10.0)
[2019-03-16 07:56] LABS: BLOOD UREA NITROGEN 6.6 mg/dL (7-18); CALCIUM 8.1 mg/dL (8.5-10.1); MAGNESIUM 1.9 mg/dL (1.8-2.4); PHOSPHOROUS 1.8 mg/dL (2.5-4.9); POTASSIUM 3.5 mmol/L (3.5-5.1)
[2019-03-16] MEDS: METOPROLOL TARTRATE 5 MG/5 ML VIAL IVPB SCH ×2 (09:56→16:52)
[2019-03-16] MEDS: HEPARIN NA (PORCINE) 5,000 UNITS/ML 1ML VIAL SQ SCH ×2 (09:57→22:08)
--- NOTE | 2019-03-16 19:24 | PN ---
Progress Note, Physician Chief Complaint: colovesical fistula History of Present Illness: POD # 3 S/p laparotomy, sb resection, sigmoid end colostomy Deneis pain Ngt drainage less bilious - Current Medication List Current Medications: Active Medications Acetaminophen (Ofirmev Injection -) 1,000 mg IVPB Q6H PRN PRN Reason: PAIN Last Admin: 03/14/19 23:48 Dose: 1,000 mg Furosemide (Lasix Injection -) 20 mg IVPUSH ONCE ONE Stop: 03/16/19 22:31 Heparin Sodium (Porcine) (Heparin -) 5,000 unit SQ BID JESSIKA Last Admin: 03/16/19 09:57 Dose: 5,000 unit Piperacillin Sod/Tazobactam (Sod 3.375 gm/ Dextrose) 50 mls @ 100 mls/hr IVPB Q8H-IV JESSIKA; Protocol Last Admin: 03/16/19 17:41 Dose: 100 mls/hr Potassium Chloride/Dextrose/Sod Cl (D5-1/2ns+20 Meq Kcl -) 20 meq in 1,000 mls @ 75 mls/hr IV ASDIR JESSIKA Last Admin: 03/16/19 03:39 Dose: 75 mls/hr Metoprolol Tartrate (Lopressor Injection -) 5 mg IVPB Q8H JESSIKA Last Admin: 03/16/19 16:52 Dose: 5 mg Ondansetron HCl (Zofran -) 4 mg PO Q8H PRN PRN Reason: NAUSEA Last Admin: 03/15/19 03:49 Dose: 4 mg - Objective Vital Signs: Vital Signs Temperature 98.9 F 03/16/19 16:45 Pulse Rate 87 03/16/19 16:52 Respiratory Rate 20 03/16/19 16:45 Blood Pressure 143/94 03/16/19 16:52 O2 Sat by Pulse Oximetry (%) 96 03/15/19 20:34 Constitutional: Yes: No Distress Cardiovascular: Yes: Regular Rate and Rhythm Respiratory: Yes: CTA Bilaterally Gastrointestinal: Yes: Soft, Abdomen, Obese, Other (decreased distention, colostomy beginning to drain liquid stool) Genitourinary: Yes: Other (clear urine) Labs: CBC, BMP 03/16/19 06:50 03/16/19 06:50 INR, PTT INR 1.38 (0.83-1.09) H 03/06/19 06:00 Problem List - Problems (1) Colovesical fistula Assessment/Plan: post-op ileus Continue NGT decompression OOB, IS, GI, & DVT prophylaxis lasix 20 mg post transfusion Code(s): N32.1 - VESICOINTESTINAL FISTULA
[2019-03-16] MEDS ORDERED: POTASSIUM PHOSPHATE 15 MM in DEXTROSE 5%-WATER - 250 ML IVPB ONE (20:30)
[2019-03-16] MEDS: PANTOPRAZOLE SODIUM 40 MG VIAL IVPUSH SCH (22:07)
[2019-03-16] MEDS ORDERED: FUROSEMIDE 40 MG/4 ML INJECTABLE VIAL IVPUSH ONE (22:30)
--- NOTE | 2019-03-16 23:43 | PN ---
Progress Note, Physician History of Present Illness: No new complaints NGT has been clamped - Current Medication List Current Medications: Active Medications Acetaminophen (Ofirmev Injection -) 1,000 mg IVPB Q6H PRN PRN Reason: PAIN Last Admin: 03/14/19 23:48 Dose: 1,000 mg Heparin Sodium (Porcine) (Heparin -) 5,000 unit SQ BID JESSIKA Last Admin: 03/16/19 22:08 Dose: 5,000 unit Piperacillin Sod/Tazobactam (Sod 3.375 gm/ Dextrose) 50 mls @ 100 mls/hr IVPB Q8H-IV JESSIKA; Protocol Last Admin: 03/16/19 17:41 Dose: 100 mls/hr Potassium Chloride/Dextrose/Sod Cl (D5-1/2ns+20 Meq Kcl -) 20 meq in 1,000 mls @ 75 mls/hr IV ASDIR JESSIKA Last Admin: 03/16/19 03:39 Dose: 75 mls/hr Potassium Phosphate 15 mm/ (Dextrose) 255 mls @ 62.5 mls/hr IVPB ONCE ONE Stop: 03/17/19 00:34 Last Admin: 03/16/19 22:34 Dose: 62.5 mls/hr Metoprolol Tartrate (Lopressor Injection -) 5 mg IVPB Q8H JESSIKA Last Admin: 03/16/19 16:52 Dose: 5 mg Ondansetron HCl (Zofran -) 4 mg PO Q8H PRN PRN Reason: NAUSEA Last Admin: 03/15/19 03:49 Dose: 4 mg Pantoprazole Sodium (Protonix Iv) 40 mg IVPUSH DAILY [facility] Last Admin: 03/16/19 22:07 Dose: 40 mg - Objective Vital Signs: Vital Signs Temperature 98.9 F 03/16/19 16:45 Pulse Rate 87 03/16/19 16:52 Respiratory Rate 20 03/16/19 16:45 Blood Pressure 143/94 03/16/19 16:52 O2 Sat by Pulse Oximetry (%) 95 03/16/19 20:39 Constitutional: Yes: Well Nourished HENT: Yes: Other ((+) NGT in place) Cardiovascular: Yes: WNL, Regular Rate and Rhythm Respiratory: Yes: WNL, Regular, CTA Bilaterally Gastrointestinal: Yes: Normal Bowel Sounds, Soft, Abdomen, Obese, Other ((+) Colostomy LLQ) Labs: CBC, BMP 03/16/19 06:50 03/16/19 06:50 INR, PTT INR 1.38 (0.83-1.09) H 03/06/19 06:00 Problem List - Problems (1) Colovesical fistula Assessment/Plan: S/P laparotomy/Small bowel resection/sigmoid resection ?Due to ureter obstruction vs psoas abcess Cont NGT as per surgery Cont IVF and pain management Cont IV zosyn Repeat urine culture is negative WBC slightly elevated Cont to monitor Code(s): N32.1 - VESICOINTESTINAL FISTULA (2) SANDY (acute kidney injury) Assessment/Plan: Due to lt ureter obstruction and lt ureter stent placement Code(s): N17.9 - ACUTE KIDNEY FAILURE, UNSPECIFIED (3) Anemia Assessment/Plan: Cont to monitor H/H S/P Transfuse 1 unit PRBC's yesterday Code(s): D64.9 - ANEMIA, UNSPECIFIED (4) HTN (hypertension) Assessment/Plan: Lopressor to be continued Cont IV lasix Code(s): I10 - ESSENTIAL (PRIMARY) HYPERTENSION (5) UTI (urinary tract infection) Assessment/Plan: Due to E.coli Cont IV zosyn Repeat urine culture is negative Code(s): N39.0 - URINARY TRACT INFECTION, SITE NOT SPECIFIED
[2019-03-17] MEDS ORDERED: DEXTROSE 5%-WATER - 50 ML IVPB ONE ×3 (01:05→17:06)
[2019-03-17] MEDS ORDERED: PIPERACILLIN/TAZOBACTAM 3.375 GM VIAL IVPB ONE ×3 (01:05→17:06)
[2019-03-17] MEDS: METOPROLOL TARTRATE 5 MG/5 ML VIAL IVPB SCH ×3 (01:17→17:11)
[2019-03-17] MEDS: PIPERACILLIN/TAZOB 3.375 GM 3.375 GM in DEXTROSE 5%-WATER - 50 ML IVPB SCH ×3 (01:49→17:53)
[2019-03-17] MEDS: D5-1/2NS+20 MEQ KCL - 20 MEQ/1,000 ML INFUS.BAG IV SCH ×2 (04:30→06:17)
[2019-03-17 07:58] LABS: ALBUMIN 1.6 g/dl (3.4-5.0); BILIRUBIN,TOTAL 0.5 mg/dL (0.2-1); BLOOD UREA NITROGEN 9.9 mg/dL (7-18); CREATININE 1.1 mg/dL (0.55-1.3); PHOSPHOROUS 2.8 mg/dL (2.5-4.9); POTASSIUM 3.1 mmol/L (3.5-5.1); TOT PROT 4.8 g/dl (6.4-8.2)
[2019-03-17 08:01] LABS: BASO % 0.5 % (0-2.0); EOS % 1.3 % (0-4.5); HEMATOCRIT 25.5 % (35.4-49); HEMOGLOBIN 8.4 GM/dL (11.7-16.9); LYMPH % 12.9 % (8-40); MCH 27.6 pg (25.7-33.7); MCHC 32.7 g/dl (32.0-35.9); MEAN CELL VOLUME 84.4 fl (80-96); MONO % 7.9 % (3.8-10.2); NEUT % 77.4 % (42.8-82.8); PLATELET COUNT 283 K/MM3 (134-434); RBC 3.03 M/mm3 (4.00-5.60); RDW 15.9 % (11.9-15.9); WHITE BLOOD COUNT 10.6 K/mm3 (4.0-10.0)
[2019-03-17] MEDS ORDERED: PT OWN MED DRAWER 7, Y5N ONE (09:17)
[2019-03-17] MEDS: PANTOPRAZOLE SODIUM 40 MG VIAL IVPUSH SCH (09:28)
[2019-03-17] MEDS: HEPARIN NA (PORCINE) 5,000 UNITS/ML 1ML VIAL SQ SCH ×2 (09:30→22:01)
--- NOTE | 2019-03-17 11:20 | PN ---
Progress Note, Physician Chief Complaint: colovesical fistula History of Present Illness: c/o lower abdominal "gas" discomfort Denies nausea - Current Medication List Current Medications: Active Medications Acetaminophen (Ofirmev Injection -) 1,000 mg IVPB Q6H PRN PRN Reason: PAIN Last Admin: 03/14/19 23:48 Dose: 1,000 mg Heparin Sodium (Porcine) (Heparin -) 5,000 unit SQ BID JESSIKA Last Admin: 03/17/19 09:30 Dose: 5,000 unit Piperacillin Sod/Tazobactam (Sod 3.375 gm/ Dextrose) 50 mls @ 100 mls/hr IVPB Q8H-IV JESSIKA; Protocol Last Admin: 03/17/19 09:26 Dose: 100 mls/hr Potassium Chloride/Dextrose/Sod Cl (D5-1/2ns+20 Meq Kcl -) 20 meq in 1,000 mls @ 75 mls/hr IV ASDIR JESSIKA Last Admin: 03/17/19 06:17 Dose: 75 mls/hr Metoprolol Tartrate (Lopressor Injection -) 5 mg IVPB Q8H [facility] Last Admin: 03/17/19 08:55 Dose: Not Given Ondansetron HCl (Zofran -) 4 mg PO Q8H PRN PRN Reason: NAUSEA Last Admin: 03/15/19 03:49 Dose: 4 mg Pantoprazole Sodium (Protonix Iv) 40 mg IVPUSH DAILY [facility] Last Admin: 03/17/19 09:28 Dose: 40 mg - Objective Vital Signs: Vital Signs Temperature 98.2 F 03/17/19 06:22 Pulse Rate 74 03/17/19 06:22 Respiratory Rate 16 03/17/19 06:22 Blood Pressure 159/91 03/17/19 06:22 O2 Sat by Pulse Oximetry (%) 95 03/16/19 20:39 Constitutional: Yes: No Distress Cardiovascular: Yes: Regular Rate and Rhythm Respiratory: Yes: CTA Bilaterally Gastrointestinal: Yes: Soft, Distention (minimal), Tenderness (minimal), Other ( colostomy bag with "gas" and liquid stool) Genitourinary: Yes: Manzo Present (claer urine) Labs: CBC, BMP 03/17/19 07:00 03/17/19 07:00 INR, PTT INR 1.38 (0.83-1.09) H 03/06/19 06:00 Problem List - Problems (1) Colovesical fistula Assessment/Plan: ileus resolving clamp NGT and check residuals q 4 h clear liquid diet for dinner D/C manzo Code(s): N32.1 - VESICOINTESTINAL FISTULA
[2019-03-17] MEDS ORDERED: POTASSIUM CHLORIDE ORAL LIQUID 20 MEQ/15 ML PO ONE (11:42)
[2019-03-17] MEDS: ACETAMINOPHEN 1000 MG/100 ML VIAL (NON FORMULARY) IVPB PRN (17:49)
--- NOTE | 2019-03-17 19:15 | PN ---
Progress Note, Physician History of Present Illness: No new complaints NGT has been clamped - Current Medication List Current Medications: Active Medications Heparin Sodium (Porcine) (Heparin -) 5,000 unit SQ BID JESSIKA Last Admin: 03/17/19 09:30 Dose: 5,000 unit Piperacillin Sod/Tazobactam (Sod 3.375 gm/ Dextrose) 50 mls @ 100 mls/hr IVPB Q8H-IV JESSIKA; Protocol Last Admin: 03/17/19 17:53 Dose: 100 mls/hr Potassium Chloride/Dextrose/Sod Cl (D5-1/2ns+20 Meq Kcl -) 20 meq in 1,000 mls @ 75 mls/hr IV ASDIR JESSIKA Last Admin: 03/17/19 06:17 Dose: 75 mls/hr Metoprolol Tartrate (Lopressor Injection -) 5 mg IVPB Q8H [facility] Last Admin: 03/17/19 17:11 Dose: 5 mg Ondansetron HCl (Zofran -) 4 mg PO Q8H PRN PRN Reason: NAUSEA Last Admin: 03/15/19 03:49 Dose: 4 mg Pantoprazole Sodium (Protonix Iv) 40 mg IVPUSH DAILY [facility] Last Admin: 03/17/19 09:28 Dose: 40 mg - Objective Vital Signs: Vital Signs Temperature 97.9 F 03/17/19 16:30 Pulse Rate 70 03/17/19 18:10 Respiratory Rate 20 03/17/19 16:30 Blood Pressure 106/79 03/17/19 18:10 O2 Sat by Pulse Oximetry (%) 95 03/16/19 20:39 HENT: Yes: WNL Neck: Yes: WNL, Supple Cardiovascular: Yes: WNL, Regular Rate and Rhythm Respiratory: Yes: WNL, Regular, CTA Bilaterally Gastrointestinal: Yes: Normal Bowel Sounds, Other (LLQ colostomy) Edema: No Labs: CBC, BMP 03/17/19 07:00 03/17/19 07:00 INR, PTT INR 1.38 (0.83-1.09) H 03/06/19 06:00 Problem List - Problems (1) Colovesical fistula Assessment/Plan: S/P laparotomy/Small bowel resection/sigmoid resection ?Due to ureter obstruction vs psoas abcess Cont NGT as per surgery Cont IVF and pain management Cont IV zosyn Repeat urine culture is negative WBC slightly elevated Cont to monitor Code(s): N32.1 - VESICOINTESTINAL FISTULA (2) SANDY (acute kidney injury) Assessment/Plan: Due to lt ureter obstruction and lt ureter stent placement Code(s): N17.9 - ACUTE KIDNEY FAILURE, UNSPECIFIED (3) Anemia Assessment/Plan: Cont to monitor H/H S/P Transfuse 1 unit PRBC's yesterday Code(s): D64.9 - ANEMIA, UNSPECIFIED (4) HTN (hypertension) Assessment/Plan: Lopressor to be continued Cont IV lasix Code(s): I10 - ESSENTIAL (PRIMARY) HYPERTENSION (5) UTI (urinary tract infection) Assessment/Plan: Due to E.coli Cont IV zosyn Repeat urine culture is negative Code(s): N39.0 - URINARY TRACT INFECTION, SITE NOT SPECIFIED
[2019-03-18] MEDS ORDERED: DEXTROSE 5%-WATER - 50 ML IVPB ONE ×4 (01:10→23:44)
[2019-03-18] MEDS ORDERED: PIPERACILLIN/TAZOBACTAM 3.375 GM VIAL IVPB ONE ×4 (01:10→23:43)
[2019-03-18] MEDS: PIPERACILLIN/TAZOB 3.375 GM 3.375 GM in DEXTROSE 5%-WATER - 50 ML IVPB SCH ×3 (01:29→17:51)
[2019-03-18] MEDS: METOPROLOL TARTRATE 5 MG/5 ML VIAL IVPB SCH ×3 (01:34→17:11)
[2019-03-18] MEDS: D5-1/2NS+20 MEQ KCL - 20 MEQ/1,000 ML INFUS.BAG IV SCH ×2 (01:35→11:57)
[2019-03-18] MEDS ORDERED: ZOLPIDEM TARTRATE 5 MG TABLET PO ONE (02:30)
[2019-03-18 08:24] LABS: BASO % 0.8 % (0-2.0); EOS % 2.7 % (0-4.5); HEMATOCRIT 24.8 % (35.4-49); HEMOGLOBIN 8.2 GM/dL (11.7-16.9); MCHC 33.2 g/dl (32.0-35.9); MEAN CELL VOLUME 84.4 fl (80-96); MEAN PLT VOLUME 7.1 fl (7.5-11.1); NEUT % 72.5 % (42.8-82.8); PLATELET COUNT 277 K/MM3 (134-434); RBC 2.93 M/mm3 (4.00-5.60); RDW 15.9 % (11.9-15.9); WHITE BLOOD COUNT 8.7 K/mm3 (4.0-10.0)
[2019-03-18 08:56] LABS: ALBUMIN 1.7 g/dl (3.4-5.0); BILIRUBIN,TOTAL 0.3 mg/dL (0.2-1); BLOOD UREA NITROGEN 8.2 mg/dL (7-18); CALCIUM 8.2 mg/dL (8.5-10.1); POTASSIUM 3.5 mmol/L (3.5-5.1); TOT PROT 4.8 g/dl (6.4-8.2)
[2019-03-18] MEDS: PANTOPRAZOLE SODIUM 40 MG VIAL IVPUSH SCH (09:19)
[2019-03-18] MEDS: HEPARIN NA (PORCINE) 5,000 UNITS/ML 1ML VIAL SQ SCH ×2 (09:20→21:49)
--- NOTE | 2019-03-18 20:23 | PN ---
Progress Note, Physician Chief Complaint: colovesical fistula History of Present Illness: POD # 5 tolerating clear liquids NGT and manzo removed Denies nausea - Current Medication List Current Medications: Active Medications Heparin Sodium (Porcine) (Heparin -) 5,000 unit SQ BID JESSIKA Last Admin: 03/18/19 09:20 Dose: 5,000 unit Piperacillin Sod/Tazobactam (Sod 3.375 gm/ Dextrose) 50 mls @ 100 mls/hr IVPB Q8H-IV JESSIKA; Protocol Last Admin: 03/18/19 17:51 Dose: 100 mls/hr Potassium Chloride/Dextrose/Sod Cl (D5-1/2ns+20 Meq Kcl -) 20 meq in 1,000 mls @ 75 mls/hr IV ASDIR JESSIKA Last Admin: 03/18/19 11:57 Dose: 75 mls/hr Metoprolol Tartrate (Lopressor Injection -) 5 mg IVPB Q8H JESSIKA Last Admin: 03/18/19 17:11 Dose: 5 mg Ondansetron HCl (Zofran -) 4 mg PO Q8H PRN PRN Reason: NAUSEA Last Admin: 03/15/19 03:49 Dose: 4 mg Pantoprazole Sodium (Protonix Iv) 40 mg IVPUSH DAILY [facility] Last Admin: 03/18/19 09:19 Dose: 40 mg - Objective Vital Signs: Vital Signs Temperature 98.1 F 03/18/19 08:10 Pulse Rate 72 03/18/19 17:11 Respiratory Rate 20 03/18/19 08:10 Blood Pressure 158/96 03/18/19 17:11 O2 Sat by Pulse Oximetry (%) 95 03/16/19 20:39 Constitutional: Yes: No Distress Gastrointestinal: Yes: Soft, Other (LEANDER more serous, colostomy bag with "gas" and liwuid stool) ...Rectal Exam: Yes: Deferred Wound/Incision: Yes: Clean/Dry, Jono Intact Labs: CBC, BMP 03/18/19 07:45 03/18/19 07:45 INR, PTT INR 1.38 (0.83-1.09) H 03/06/19 06:00 Problem List - Problems (1) Colovesical fistula Assessment/Plan: ileus resolved advance to soft diet D/C LEANDER D/C planning Code(s): N32.1 - VESICOINTESTINAL FISTULA
--- NOTE | 2019-03-18 21:55 | PN ---
Progress Note, Physician - Current Medication List Current Medications: Active Medications Heparin Sodium (Porcine) (Heparin -) 5,000 unit SQ BID JESSIKA Last Admin: 03/18/19 21:49 Dose: 5,000 unit Piperacillin Sod/Tazobactam (Sod 3.375 gm/ Dextrose) 50 mls @ 100 mls/hr IVPB Q8H-IV JESSIKA; Protocol Last Admin: 03/18/19 17:51 Dose: 100 mls/hr Potassium Chloride/Dextrose/Sod Cl (D5-1/2ns+20 Meq Kcl -) 20 meq in 1,000 mls @ 75 mls/hr IV ASDIR JESSIKA Last Admin: 03/18/19 11:57 Dose: 75 mls/hr Metoprolol Tartrate (Lopressor Injection -) 5 mg IVPB Q8H JESSIKA Last Admin: 03/18/19 17:11 Dose: 5 mg Ondansetron HCl (Zofran -) 4 mg PO Q8H PRN PRN Reason: NAUSEA Last Admin: 03/15/19 03:49 Dose: 4 mg Pantoprazole Sodium (Protonix Iv) 40 mg IVPUSH DAILY [facility] Last Admin: 03/18/19 09:19 Dose: 40 mg - Objective Vital Signs: Vital Signs Temperature 98.1 F 03/18/19 08:10 Pulse Rate 72 03/18/19 17:11 Respiratory Rate 20 03/18/19 08:10 Blood Pressure 158/96 03/18/19 17:11 O2 Sat by Pulse Oximetry (%) 95 03/16/19 20:39 Labs: CBC, BMP 03/18/19 07:45 03/18/19 07:45 INR, PTT INR 1.38 (0.83-1.09) H 03/06/19 06:00 Problem List - Problems (1) Colovesical fistula Code(s): N32.1 - VESICOINTESTINAL FISTULA (2) SANDY (acute kidney injury) Code(s): N17.9 - ACUTE KIDNEY FAILURE, UNSPECIFIED (3) Anemia Code(s): D64.9 - ANEMIA, UNSPECIFIED (4) HTN (hypertension) Code(s): I10 - ESSENTIAL (PRIMARY) HYPERTENSION (5) UTI (urinary tract infection) Code(s): N39.0 - URINARY TRACT INFECTION, SITE NOT SPECIFIED
[2019-03-19] MEDS: METOPROLOL TARTRATE 5 MG/5 ML VIAL IVPB SCH ×2 (02:04→09:33)
[2019-03-19] MEDS: PIPERACILLIN/TAZOB 3.375 GM 3.375 GM in DEXTROSE 5%-WATER - 50 ML IVPB SCH ×3 (02:06→18:03)
[2019-03-19] MEDS ORDERED: PT OWN MED DRAWER 7, Y5N ONE ×2 (06:31→08:22)
[2019-03-19 06:38] LABS: EOS % 3.5 % (0-4.5); HEMATOCRIT 26.1 % (35.4-49); HEMOGLOBIN 8.3 GM/dL (11.7-16.9); LYMPH % 20.4 % (8-40); MCH 27.1 pg (25.7-33.7); MCHC 31.9 g/dl (32.0-35.9); MEAN CELL VOLUME 84.9 fl (80-96); MEAN PLT VOLUME 7.4 fl (7.5-11.1); MONO % 7.8 % (3.8-10.2); NEUT % 67.3 % (42.8-82.8); PLATELET COUNT 285 K/MM3 (134-434); RBC 3.08 M/mm3 (4.00-5.60); RDW 15.7 % (11.9-15.9)
[2019-03-19 06:46] LABS: ALBUMIN 1.7 g/dl (3.4-5.0); BILIRUBIN,TOTAL 0.4 mg/dL (0.2-1); BLOOD UREA NITROGEN 6.8 mg/dL (7-18); POTASSIUM 3.6 mmol/L (3.5-5.1); TOT PROT 5.1 g/dl (6.4-8.2)
[2019-03-19] MEDS ORDERED: PIPERACILLIN/TAZOBACTAM 3.375 GM VIAL IVPB ONE ×2 (08:22→14:51)
[2019-03-19] MEDS ORDERED: DEXTROSE 5%-WATER - 50 ML IVPB ONE ×2 (08:22→14:51)
[2019-03-19] MEDS: HEPARIN NA (PORCINE) 5,000 UNITS/ML 1ML VIAL SQ SCH ×2 (09:31→22:20)
[2019-03-19] MEDS: PANTOPRAZOLE SODIUM 40 MG VIAL IVPUSH SCH (09:33)
[2019-03-19] MEDS ORDERED: PATIENT'S OWN MEDICATION (NON-FORMULARY) (Hydrochlorothiazide [Hydrochlorothiazide] 12.5 M PO SCH (15:00)
[2019-03-19] MEDS: metoPROLOL SUCCINATE 25 MG TAB.SR.24H (FP) PO SCH (15:25)
[2019-03-19] MEDS: amLODIPine BESYLATE 5 MG TABLET (FP) PO SCH (15:25)
[2019-03-19] MEDS: D5-1/2NS+20 MEQ KCL - 20 MEQ/1,000 ML INFUS.BAG IV SCH ×2 (15:28→18:02)
--- NOTE | 2019-03-19 21:41 | PN ---
Progress Note, Physician - Current Medication List Current Medications: Active Medications Amlodipine Besylate (Norvasc -) 5 mg PO DAILY [facility] Last Admin: 03/19/19 15:25 Dose: 5 mg Aspirin (Ecotrin -) 325 mg PO DAILY [facility] Heparin Sodium (Porcine) (Heparin -) 5,000 unit SQ BID [facility] Last Admin: 03/19/19 09:31 Dose: 5,000 unit Hydrochlorothiazide (Hctz -) 12.5 mg PO DAILY [facility] Piperacillin Sod/Tazobactam (Sod 3.375 gm/ Dextrose) 50 mls @ 100 mls/hr IVPB Q8H-IV JESSIKA; Protocol Last Admin: 03/19/19 18:03 Dose: 100 mls/hr Potassium Chloride/Dextrose/Sod Cl (D5-1/2ns+20 Meq Kcl -) 20 meq in 1,000 mls @ 75 mls/hr IV ASDIR [facility] Last Admin: 03/19/19 18:02 Dose: 75 mls/hr Metoprolol Succinate (Toprol Xl -) 25 mg PO DAILY [facility] Last Admin: 03/19/19 15:25 Dose: 25 mg Ondansetron HCl (Zofran -) 4 mg PO Q8H PRN PRN Reason: NAUSEA Last Admin: 03/15/19 03:49 Dose: 4 mg Pantoprazole Sodium (Protonix Iv) 40 mg IVPUSH DAILY [facility] Last Admin: 03/19/19 09:33 Dose: 40 mg - Objective Vital Signs: Vital Signs Temperature 98.1 F 03/19/19 16:30 Pulse Rate 78 03/19/19 16:30 Respiratory Rate 18 03/19/19 16:30 Blood Pressure 148/87 03/19/19 16:30 O2 Sat by Pulse Oximetry (%) 98 03/19/19 09:00 Labs: CBC, BMP 03/19/19 05:47 03/19/19 05:47 INR, PTT INR 1.38 (0.83-1.09) H 03/06/19 06:00 Problem List - Problems (1) Colovesical fistula Code(s): N32.1 - VESICOINTESTINAL FISTULA (2) SANDY (acute kidney injury) Code(s): N17.9 - ACUTE KIDNEY FAILURE, UNSPECIFIED (3) Anemia Code(s): D64.9 - ANEMIA, UNSPECIFIED (4) HTN (hypertension) Code(s): I10 - ESSENTIAL (PRIMARY) HYPERTENSION (5) UTI (urinary tract infection) Code(s): N39.0 - URINARY TRACT INFECTION, SITE NOT SPECIFIED
[2019-03-20] MEDS ORDERED: PIPERACILLIN/TAZOBACTAM 3.375 GM VIAL IVPB ONE ×2 (02:38→08:53)
[2019-03-20] MEDS ORDERED: DEXTROSE 5%-WATER - 50 ML IVPB ONE ×2 (02:39→08:53)
[2019-03-20] MEDS: PIPERACILLIN/TAZOB 3.375 GM 3.375 GM in DEXTROSE 5%-WATER - 50 ML IVPB SCH ×2 (02:53→09:28)
[2019-03-20] MEDS ORDERED: PT OWN MED DRAWER 7, Y5N ONE (08:53)
[2019-03-20] MEDS: metoPROLOL SUCCINATE 25 MG TAB.SR.24H (FP) PO SCH (09:28)
[2019-03-20] MEDS: HEPARIN NA (PORCINE) 5,000 UNITS/ML 1ML VIAL SQ SCH (09:28)
[2019-03-20] MEDS: amLODIPine BESYLATE 5 MG TABLET (FP) PO SCH (09:28)
[2019-03-20] MEDS ORDERED: ZOLPIDEM TARTRATE 5 MG TABLET PO ONE (09:45)
[2019-03-20] MEDS ORDERED: ASPIRIN 325 MG ENTERIC COATED TABLET (FP) PO SCH (10:00)
[2019-03-20] MEDS ORDERED: PANTOPRAZOLE 40 MG TABLET (FP) PO SCH (10:00)
[2019-03-20] MEDS ORDERED: HYDROCHLOROTHIAZIDE 12.5 MG CAPSULE (FP) PO SCH (10:00)
[2019-03-20 15:20] VITALS: BP 137/86; PULSE 72; TEMP 98.1
--- NOTE | 2019-03-20 16:02 | PATH ---
Surgical Pathology Report Patient Name: VICKY POP JR Med. Rec. #: [id number] /Age/Gender: 1950 (Age: 69) / M Account: [id number] Location: [facility] MED/SURG Taken: 03/13/2019 Received: 03/13/2019 Reported: 03/20/2019 Physicians: Parker Ryan M.D. Specimen(s) Received A: PORTION OF SIGMOID COLON (FROZEN SECTION) B: SMALL BOWEL C: PERICOLIC ADIPOSE TISSUE Clinical History Colovesical fistula Intraoperative Consult Diagnosis Portion of sigmoid colon, frozen section: Fibrous tissue with inflammation. No evidence of malignancy. Amadeo Sanchez 03/13/19 Final Diagnosis A. portion of sigmoid colon, excision (FS): Portion of Fibrous tissue showing acute and chronic inflammation. B. small bowel, excision: Portion of small bowel showing marked acute serositis with HISTIOCYTIC REACTION AND granulation tissue/adhesion formation. C. pericolic adipose tissue, excision: Adipose tissue showing nodular fat necrosis, CALCIFIED AND ossifiED. Skin, with no pathologic findings. Electronically Signed Nablia Vaughan M.D. Gross Description A. Received fresh for frozen section evaluation, labeled "portion of sigmoid colon " is a 0.4 x 0.3 x 0.2 cm portion of red-weaver tissue. Frozen section is performed on the specimen. The frozen section residue is entirely submitted in one cassette. B. Received in formalin, labeled "small bowel" is a 5.8 cm long segment of partially opened bowel with a circumference of up to 2.0 cm in. North are present at one aspect and a black suture is noted at the open end. No gross abnormalities are noted in this segment. Also received is a separate segment of bowel measuring 5.5 cm in length with a circumference of up to 2.5 cm. North are present at both ends and there is moderate attached adipose tissue. The serosa appears hemorrhagic and shows areas of dark brown exudate. A 0.8 x 0.7 x 0.3 slightly raised, hemorrhagic nodule is noted at the serosal aspect. Upon opening, the mucosa appears unremarkable. Cook Pie sections are submitted in five cassettes as follows: 1-serosal nodule; 2-4-bowel wall with serosal exudate; 5-care support representative sections of partially opened segment of bowel. C. Received in formalin, labeled "pericolic adipose tissue" is a 2.5 x 2 x 1 cm yellow-brown, hard, markedly calcified nodule with a 2.5 x 1.3 x 1.2 cm portion of attached adipose tissue at one aspect. Also received is a 9.5 x 3 x 1 cm unremarkable portion of adipose tissue with a 1.8 x 1.6 cm circular portion of dark weaver skin at one aspect. Cook Pie sections are submitted in four cassettes as follows: 1-skin with adipose tissue; 2- adipose tissue surrounding hard mass; 3, 4-hard mass, following decalcification. AE/03/13/2019 ebram/03/13/2019
== END 2019-03-20 17:41 | disposition home or self-care (01) | DRG 659 ==
LOC: JER 14:21 → J8W 19:08
PROVIDERS: ADMIT Internal Medicine; ATTEND Internal Medicine
PROC: BT1FZZZ Fluoroscopy of Left Kidney, Ureter and Bladder (ICD-10-PCS; 2019-03-07)
PROC: 0T778DZ Dilation of Left Ureter with Intraluminal Device, Via Natural or Artificial Opening Endoscopic (ICD-10-PCS; principal; 2019-03-07 16:00)
PROC: 0DBN4ZZ Excision of Sigmoid Colon, Percutaneous Endoscopic Approach (ICD-10-PCS; 2019-03-13)
PROC: 0D1N4Z4 Bypass Sigmoid Colon to Cutaneous, Percutaneous Endoscopic Approach (ICD-10-PCS; 2019-03-13)
PROC: 0DBM4ZZ Excision of Descending Colon, Percutaneous Endoscopic Approach (ICD-10-PCS; 2019-03-13)
DX: N13.6 Pyonephrosis (principal); K68.12 Psoas muscle abscess; N32.1 Vesicointestinal fistula; K86.2 Cyst of pancreas; K57.32 Diverticulitis of large intestine without perforation or abscess without bleeding; N17.9 Acute kidney failure, unspecified; I95.9 Hypotension, unspecified; E78.5 Hyperlipidemia, unspecified; I10 Essential (primary) hypertension; N28.1 Cyst of kidney, acquired; E78.00 Pure hypercholesterolemia, unspecified; R73.03 Prediabetes; K57.30 Diverticulosis of large intestine without perforation or abscess without bleeding; H54.62 Unqualified visual loss, left eye, normal vision right eye; D47.3 Essential (hemorrhagic) thrombocythemia; D72.829 Elevated white blood cell count, unspecified; D63.8 Anemia in other chronic diseases classified elsewhere; E87.6 Hypokalemia; Z86.73 Personal history of transient ischemic attack (TIA), and cerebral infarction without residual deficits
CPT/HCPCS: 36415; 36430; 36511; 71046-TC-FY; 72196-TC; 74018-TC-FY; 74176-TC; 76000-TC-FY; 76775-TC; 80048; 80053; 81003; 82728; 83540; 83550; 83605; 83735; 84100; 85025; 85027; 85610; 86850; 86900; 86901; 86922; 87040; 87077; 87086; 87186; 88305-TC; 88307-TC; 88311-TC; 88331-TC; 93005; 93010; 94010; 94760; 97116-GP; 97161-GP; 99283-25; A9579; J0131; J1644; J7030; P9038; P9058

== ENCOUNTER 2019-04-29 08:22 | Inpatient (IN) | payer OTHER, BC ==
[2019-04-29] MEDS ORDERED: ONDANSETRON 4 MG/2 ML VIAL IVPUSH ONE (09:46)
[2019-04-29] MEDS ORDERED: SODIUM CHLORIDE 1,000 ML IV STA ×2 (09:46→11:02)
--- NOTE | 2019-04-29 09:48 | PDOC ---
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 Ryan), recent UTI s s/p cystoscopy/ cystogram/L JJ stent insertion 03/06 (Dr. Huizar) with stent still in place presents to the ED with nausea and vomiting since 4AM. Patient was in his usual state of good health yesterday, reports feeling generalized weakness but was able to take his afternoon walk. At 4 AM he began to have multiple episodes of nonbloody and nonbilious emesis. Denies associated abd pain or distention. He also notes the brown nonbloody output in his ostomy bag has been increased since this morning as well. He denies any fevers or chills. He has not had any complications since his surgery.He denies any headache, dizziness, focal weakness or numbness, chest pain, shortness of breath, dysuria, hematuria, frequency, lower extremity edema. Daily meds: crestor, ASA 81mg, fish oil Past History - Past Medical History Allergies/Adverse Reactions: Allergies Allergy/AdvReac Type Severity Reaction Status Date / Time No Known Allergies Allergy Verified 04/29/19 10:12 Home Medications: Ambulatory Orders Metoprolol Succinate [Toprol XL -] 25 mg PO DAILY 10/25/16 Rosuvastatin Calcium [Crestor] 10 mg PO HS 10/25/16 Aspirin Coated [Ecotrin -] 325 mg PO DAILY 11/29/16 COPD: No Diabetes: Yes (BORDERLINE - NO MED) HTN: Yes Hypercholesterolemia: Yes Kidney Stones: Yes (lt renal stent) - Surgical History Abdominal Surgery: Yes (REPAIR OF UMBILICAL HERNIA) Orthopedic Surgery: Yes (LT KNEE ARTHROSCOPY) - Immunization History Immunization Up to Date: No - Psycho Social/Smoking Cessation Hx Smoking History: Former smoker Have you smoked in the past 12 months: No If you are a former smoker, when did you quit?: 35 YRS AGO Information on smoking cessation initiated: No Hx Alcohol Use: No Drug/Substance Use Hx: No Review of Systems - Review of Systems Comments:: 04/29/19 10:06 GENERAL/CONSTITUTIONAL: No fever or chills. No weakness. HEAD, EYES, EARS, NOSE AND THROAT: No change in vision. No ear pain or discharge. No sore throat. GASTROINTESTINAL: +nausea, vomiting, no diarrhea or constipation. GENITOURINARY: No dysuria, frequency, or change in urination. CARDIOVASCULAR: No chest pain or shortness of breath. RESPIRATORY: No cough, wheezing, or hemoptysis. MUSCULOSKELETAL: No joint or muscle swelling or pain. No neck or back pain. SKIN: No rash NEUROLOGIC: No headache, vertigo, loss of consciousness, or change in strength/ sensation. ENDOCRINE: No increased thirst. No abnormal weight change. HEMATOLOGIC/LYMPHATIC: No anemia, easy bleeding, or history of blood clots. ALLERGIC/IMMUNOLOGIC: No hives or skin allergy. *Physical Exam - Vital Signs Last Vital Signs Temp Pulse Resp BP Pulse Ox 97.1 F L 96 H 18 113/70 98 04/29/19 08:50 04/29/19 08:50 04/29/19 08:50 04/29/19 08:50 04/29/19 08:50 - Physical Exam Comments: 04/29/19 10:07 GENERAL: Awake, alert, and fully oriented, in no acute distress. Pt holding emesis bag with NBNB emesis inside. EYES: PERRLA, EOMI, sclera anicteric, conjunctiva clear ENT: Nares patent, oropharynx clear without exudates. Dry MM NECK: Normal ROM, supple, no lymphadenopathy, JVD, or masses LUNGS: Breath sounds equal, clear to auscultation bilaterally. No wheezes, and no crackles HEART: Regular rate and rhythm, normal S1 and S2, no murmurs, rubs or gallops ABDOMEN: Soft, nontender, +L sided ostomy bag in place with formed brown stool inside. No guarding, no rebound. No masses EXTREMITIES: Normal range of motion, no edema. No cords, erythema, or tenderness NEUROLOGICAL: Normal speech, cranial nerves intact, equal strength and sensation b/l SKIN: Warm, Dry, normal turgor, no rashes or lesions noted. Heart Score/ECG Review #1 04/29/19 10:51 Twelve-lead EKG was performed and reviewed by me. Normal sinus rhythm, rate 95. Normal axis. No ST elevations. QTc 457. ED Treatment Course - LABORATORY CBC & Chemistry Diagram: 04/29/19 10:00 04/29/19 10:00 - RADIOLOGY Radiology Studies Ordered: Category Date Time Status ABDOMEN & PELVIS CT WITH CONTR [CT] Stat CT Scan 04/29/19 09:34 Ordered CHEST PA & LAT [RAD] Stat Radiology 04/29/19 09:46 Ordered Medical Decision Making - Medical Decision Making 04/29/19 10:08 69-year-old male with a recent complicated surgical history secondary to mass and colovesicular fistula as well as left ureteral stent presents the emergency department with multiple episodes of nausea and vomiting. Vitals within normal limits. Exam with no abdominal tenderness palpation. Differential includes SBO versus ileus versus LBO versus UTI. Plan for labs, antiemetics, CT scan of the abdomen and pelvis with p.o. and IV contrast, surgical consult. 04/29/19 10:49 Pt unable to tolerate PO contrast despite zofran. Ativan 0.5mg ordered, will attempt again 04/29/19 11:18 Pt will attempt to drink contrast 04/29/19 13:19 Pt drank small volume of PO contrast, vomited afterwards despite zofran and ativan As such pt taken to CTAP with only IV contrast 2/2 PO intolerance 04/29/19 15:50 CT scan with residual iliopsoas abscess as well as gastric distention but no evidence of bowel obstruction. Case discussed with Dr. Ryan, who recommends NG tube placement. Patient also has been ordered for Reglan given persistent nausea at this time. Awaiting callback from Dr. Mercado for admission. 04/29/19 16:[address] Mercado, patient accepted for admission. Case discussed in detail with admitting physician including history, physical exam and ancillary studies. Admitting physician has assumed care for the patient, will follow all pending diagnostics and will complete the evaluation and treatment. Discharge - Discharge Information Problems reviewed: Yes Clinical Impression/Diagnosis: Vomiting Condition: Stable - Follow up/Referral Referrals: Ricky Jennings MD [Primary Care Provider] - - Patient Discharge Instructions - Post Discharge Activity
[2019-04-29] MEDS ORDERED: ONDANSETRON 4 MG/2 ML VIAL ONE (09:50)
[2019-04-29 10:24] LABS: BASO % 0.4 % (0-2.0); HEMATOCRIT 36.4 % (35.4-49); HEMOGLOBIN 11.9 GM/dL (11.7-16.9); LYMPH % 3.5 % (8-40); MCH 28.9 pg (25.7-33.7); MCHC 32.8 g/dl (32.0-35.9); MEAN CELL VOLUME 88.1 fl (80-96); MEAN PLT VOLUME 7.3 fl (7.5-11.1); MONO % 2.1 % (3.8-10.2); PLATELET COUNT 308 K/MM3 (134-434); RBC 4.13 M/mm3 (4.00-5.60); RDW 17.9 % (11.9-15.9); WHITE BLOOD COUNT 8.1 K/mm3 (4.0-10.0)
[2019-04-29] MEDS ORDERED: LORazepam 2 MG/ML SDV VIAL ONE (10:52)
[2019-04-29 10:54] LABS: INR 1.06 (0.83-1.09); PROTHROMBIN TIME (PATIENT) 12.5 SEC (9.7-13.0)
[2019-04-29 10:56] LABS: ACTIVATED PTT 28.2 SECONDS (25.2-36.5)
[2019-04-29 11:03] LABS: ALBUMIN 3.6 g/dl (3.4-5.0); ALK PHOS 127 U/L (45-117); ANION GAP 11 MMOL/L (8-16); CALCIUM 9.4 mg/dL (8.5-10.1); CHLORIDE 102 mmol/L (98-107); CO2 29 mmol/L (21-32); CREATININE 1.2 mg/dL (0.55-1.3); GLUCOSE,RANDOM 143 mg/dL (74-106); POTASSIUM 3.3 mmol/L (3.5-5.1); SGOT/AST 191 U/L (15-37); SGPT/ALT 111 U/L (13-61); SODIUM 141 mmol/L (136-145); TOT PROT 7.9 g/dl (6.4-8.2)
[2019-04-29] MEDS ORDERED: KCL 10 MEQ IVPB 10 MEQ/100 ML INFUS.BAG IVPB ONE ×3 (11:38→14:00)
[2019-04-29 11:45] LABS: ANISOCYTOSIS 0; MACROCYTOSIS 0; PLATELET ESTIMATE NORMAL
[2019-04-29] MEDS: KCL 10 MEQ IVPB 10 MEQ/100 ML INFUS.BAG IVPB SCH ×3 (11:48→15:37)
[2019-04-29 12:28] LABS: EPI CELLS 2.7 /HPF (0-5/HPF); HYALINE CASTS 22 /lpf (0-8); URINE APPEARANCE CLEAR; URINE BACTERIA 2.7 /hpf (NEGATIVE); URINE BILIRUBIN NEGATIVE (NEGATIVE); URINE COLOR YELLOW; URINE GLUCOSE (UA) NEGATIVE (NEGATIVE); URINE KETONE NEGATIVE (NEGATIVE); URINE LEUK ESTERASE 2+ (NEGATIVE); URINE NITRITE NEGATIVE (NEGATIVE); URINE PROTEIN TRACE (NEGATIVE); URINE RBC 20 /hpf (0-4); URINE UROBILINOGEN 0.2 mg/dL (0.2-1.0); URINE WBC 44 /hpf (0-5)
[2019-04-29] MEDS ORDERED: PIPERACILLIN/TAZOB 4.5 GM 4.5 GM in DEXTROSE 5%-WATER - 100 ML IVPB ONE (12:43)
[2019-04-29] MEDS ORDERED: PIPERACILLIN/TAZOB 4.5 GM 4.5 GM/100 ML BAG IVPB ONE (13:59)
[2019-04-29] MEDS ORDERED: METOCLOPRAMIDE HCL INJECTION 10 MG/2 ML VIAL ONE (15:42)
[2019-04-29 20:42] VITALS: BMI 25.2
[2019-04-29] MEDS ORDERED: FLU VACCINE QUAD 60 MCG/0.5 ML (MDV 19-20) IM ONE (22:00)
[2019-04-30] MEDS ORDERED: ONDANSETRON 4 MG/2 ML VIAL IVPUSH PRN (01:42)
[2019-04-30] MEDS ORDERED: PIPERACILLIN/TAZOBACTAM 3.375 GM VIAL IVPB ONE ×2 (03:04→09:36)
[2019-04-30] MEDS ORDERED: DEXTROSE 5%-WATER - 50 ML IVPB ONE ×2 (03:04→09:37)
[2019-04-30] MEDS: PIPERACILLIN/TAZOB 3.375 GM 3.375 GM in DEXTROSE 5%-WATER - 50 ML IVPB SCH ×2 (03:40→09:43)
[2019-04-30] MEDS: DEXTROSE 5%-0.45% SALINE 1,000 ML IV SCH ×2 (03:41→20:54)
[2019-04-30 06:51] LABS: BASO % 0.6 % (0-2.0); EOS % 1.6 % (0-4.5); HEMATOCRIT 31.6 % (35.4-49); HEMOGLOBIN 10.4 GM/dL (11.7-16.9); LYMPH % 17.7 % (8-40); MCH 29.1 pg (25.7-33.7); MCHC 32.8 g/dl (32.0-35.9); MEAN CELL VOLUME 88.7 fl (80-96); MEAN PLT VOLUME 7.5 fl (7.5-11.1); MONO % 8.3 % (3.8-10.2); NEUT % 71.8 % (42.8-82.8); PLATELET COUNT 269 K/MM3 (134-434); RBC 3.56 M/mm3 (4.00-5.60); RDW 17.9 % (11.9-15.9); WHITE BLOOD COUNT 6.9 K/mm3 (4.0-10.0)
[2019-04-30 07:22] LABS: ALBUMIN 2.9 g/dl (3.4-5.0); BILIRUBIN,TOTAL 0.8 mg/dL (0.2-1); BLOOD UREA NITROGEN 13.2 mg/dL (7-18); CALCIUM 8.6 mg/dL (8.5-10.1); CREATININE 1.1 mg/dL (0.55-1.3); POTASSIUM 3.5 mmol/L (3.5-5.1); TOT PROT 6.3 g/dl (6.4-8.2)
[2019-04-30] MEDS: HEPARIN NA (PORCINE) 5,000 UNITS/ML 1ML VIAL SQ SCH ×2 (09:40→21:22)
[2019-04-30] MEDS: metoPROLOL SUCCINATE 25 MG TAB.SR.24H (FP) PO SCH (09:42)
[2019-04-30] MEDS: ASPIRIN 325 MG ENTERIC COATED TABLET (FP) PO SCH (09:42)
--- NOTE | 2019-04-30 10:36 | PN ---
Progress Note (short form) - Note Progress Note: ID CONSULT DICTATED S/P MARCELLA PROCEDURE FOR COLOVESICULAR FISTULA/ PSOAS ABSCESS RESIDUAL PSOAS COLLECTION SEEN ON CT PT AFEBRILE, WBC WNL NON TOXIC APPEARING OBSERVE OFF ANTIBIOTICS SURGICAL F/U
--- NOTE | 2019-04-30 11:04 | EKG ---
Test Reason : Blood Pressure : / mmHG Vent. Rate : 095 BPM Atrial Rate : 095 BPM P-R Int : 214 ms QRS Dur : 094 ms QT Int : 364 ms P-R-T Axes : 025 -22 012 degrees QTc Int : 457 ms SINUS RHYTHM WITH 1ST DEGREE A-V BLOCK MODERATE VOLTAGE CRITERIA FOR LVH, MAY BE NORMAL VARIANT BORDERLINE ECG WHEN COMPARED WITH ECG OF 05-MAR-2019 18:38, MO INTERVAL HAS INCREASED NONSPECIFIC T WAVE ABNORMALITY NOW EVIDENT IN ANTERIOR LEADS Confirmed by AUNG CHRISTINA, TIRSO ([id number]) on 04/30/2019 11:04:13 AM Referred By: Confirmed By:TIRSO HORAN MD
--- NOTE | 2019-04-30 12:14 | CONS ---
DATE OF CONSULTATION: DATE OF DICTATION: 04/30/2019 HISTORY OF PRESENT ILLNESS: The patient is a 69-year-old male who was evaluated for residual psoas abscess. Patient was known to me from previous hospitalization. He was hospitalized from March 05 to March 20, 2019 after presenting with genitourinary symptoms. He was found to have a colovesicular fistula, as well as a left psoas abscess. Patient underwent a laparotomy, Tiffanie procedure, small bowel resection, and repair of colovesicular fistula on March 13, 2019. He was discharged home on March 20, 2019. Since returning home, patient reports he has been doing well. He has been eating a regular diet and the ostomy has been functional. He denies any pain, no urinary tract symptoms, no fever, or chills. He now returns with acute onset of nausea and vomiting. Patient reports that he shared a meal with his consisting of shrimp and grits on the evening prior to admission. At approximately 3 a.m. he awoke from sleep with abrupt onset of nausea and vomiting. He reported the vomitus as brown in color, but denied any coffee-ground material or matthew blood. He presented to the emergency room where a CAT scan of the abdomen and pelvis was performed. It revealed the colostomy in the left lower quadrant with a tiny residual collection within the left iliopsoas muscle. A ureteral stent was present in the left ureter. Hyperdense was noted in the lower pole of the right kidney. There was some gastric distention, but no evidence of bowel obstruction. He denies any associated fever or chills. He was empirically treated with Zosyn. PAST MEDICAL HISTORY: Positive for hypertension, hyperlipidemia, stroke, diverticulosis. PAST SURGICAL HISTORY: As noted. ALLERGIES: No known allergies. MEDICATIONS: At the present time include aspirin, heparin, metoprolol, Zosyn. SOCIAL HISTORY: He resides at home with his significant other. He is a former smoker, nondrinker. SYSTEMS REVIEW: Neurologic: No loss of consciousness, seizure activity, focal weakness. Cardiac: Negative chest pain or palpitations. Respiratory: Negative cough, or sputum production. Gastrointestinal: As per HPI. Genitourinary: Negative for urinary tract infection. LABORATORY DATA: White count on admission 8.1, hematocrit 31.6, platelets 269. Creatinine 1.1. Urinalysis 44 white cells, total bilirubin 0.8, alkaline phosphatase 119, AST 87, ALT 104. PHYSICAL EXAMINATION: General: On exam, he was awake and alert. He is supine in bed. He is not acutely toxic-appearing, in no acute distress. Vitals: Temperature 98.9, blood pressure 148/79, pulse 102 regular, respirations 19 per minute. HEENT: Sclera anicteric. Poor dentition. Heart: Sounds S1, S2. Lungs: Clear. Abdomen: Soft. There was a healed midline surgical scar without evidence of infection. There is a patent ostomy with gas and stool present. Stool is brown in color. Extremities: Negative for edema. Negative Mony sign. IMPRESSION: 1. Status post Tiffanie procedure for colovesicular fistula and psoas abscess. 2. Residual psoas collection seen on CAT scan. Patient is afebrile with a normal white blood cell count. He is [id number]. Residual psoas collection likely sterile. Doubt acute infectious process. RECOMMENDATIONS: I would observe off antibiotic therapy. Surgical follow up. Should the patient develop fever or leukocytosis, will obtain cultures and start empiric antibiotic therapy. For now will observe off therapy. Thank you for the kind referral. OLIVE COLBY M.D. [id number]
--- NOTE | 2019-04-30 14:43 | PN ---
Progress Note, Physician - Current Medication List Current Medications: Active Medications Aspirin (Ecotrin -) 325 mg PO DAILY [facility] Last Admin: 04/30/19 09:42 Dose: Not Given Heparin Sodium (Porcine) (Heparin -) 5,000 unit SQ BID [facility] Last Admin: 04/30/19 09:40 Dose: 5,000 unit Dextrose/Sodium Chloride (D5-1/2ns -) 1,000 mls @ 75 mls/hr IV ASDIR [facility] Last Admin: 04/30/19 03:41 Dose: 75 mls/hr Metoprolol Succinate (Toprol Xl -) 25 mg PO DAILY [facility] Last Admin: 04/30/19 09:42 Dose: Not Given Ondansetron HCl (Zofran Injection) 4 mg IVPUSH Q8H PRN PRN Reason: NAUSEA - Objective Vital Signs: Vital Signs Temperature 98.9 F 04/29/19 19:47 Pulse Rate 102 H 04/29/19 19:47 Respiratory Rate 20 04/29/19 21:00 Blood Pressure 148/79 04/29/19 19:47 O2 Sat by Pulse Oximetry (%) 97 04/29/19 21:00 Labs: CBC, BMP 04/30/19 06:26 04/30/19 06:26 INR, PTT INR 1.06 (0.83-1.09) 04/29/19 10:00
[2019-04-30] MEDS ORDERED: PIPERACILLIN/TAZOB 3.375 GM 3.375 GM in DEXTROSE 5%-WATER - 50 ML IVPB SCH (18:00)
--- NOTE | 2019-04-30 18:02 | CONS ---
DATE OF CONSULTATION: DATE OF DICTATION: 04/30/2019 HISTORY OF PRESENT ILLNESS: The patient is a 69-year-old gentleman with history of vesicocolonic fistula diagnosed 3 months earlier. Patient underwent small bowel resection as well as a diverting colostomy with Tiffanie pouch. At the time a left JJ stent was placed. The patient does have history of prostatism including frequency, urgency. He was admitted to the emergency room with generalized weakness 4 a.m. on day of admission the patient had multiple bouts of vomiting. He denies abdominal pain. He also noted brown output via the colostomy bag. He denies any fever or chills. He is on Crestor, aspirin, and omega 3 fish oil. He denies any allergies. Patient is a borderline diabetic. He is also dyslipidemic. He also has high blood pressure. Previous surgeries include left knee arthroscopy and repair of an umbilical hernia. The patient denies any ethanol or tobacco use. His abdomen is soft. Genitalia are atraumatic. The stoma is pink and patent. Prostate is 3+, smooth, benign, and nontender. Rectal ampulla is empty. His white count is 8.1, hemoglobin and hematocrit 11.9 over 36.4, platelets were 304. BUN and creatinine were 19 over 1.2. The patient had a CT scan of his abdomen and pelvis. This revealed some residual iliopsoas infection as well as gastric distention. There was no evidence of obstruction. The patient also underwent a renal ultrasound this morning, and this revealed nonvisualization of complex cyst within the lower pole of the right kidney that was noted on a CT scan . The possibility of a renal mass must be considered and an MRI followup recommended. There is a left ureteral stent with resolution of hydronephrosis, and there was a small amount of post void residual urine. Patient's latest vital signs reveal a blood pressure of 152/96, temperature 98.2, pulse is 80 and respirations are 20. The patient's urine culture showed no growth. Presently, the patient appears to be in no apparent distress. His abdomen is soft. His colostomy is functioning well. He does have a left JJ stent with no evidence of hydronephrosis. There is a suspicious 2-cm cystic lesion in the right kidney. This must be worked up including an MRI to rule out neoplasm. Will follow with you. Amadeo [id number]
--- NOTE | 2019-04-30 18:05 | CONSULT ---
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 Ryan), recent UTI s s/p cystoscopy/ cystogram/L JJ stent insertion 03/06 (Dr. Huizar) with stent still in place presents to the ED with nausea and vomiting. CT A/P showed gastric distention without SBO. Patient refused NGT and currently denies N & V, and feels hungry. Colostomy noted to be functioning well. Denies abdominal pain. - History Source History Provided By: Patient Limitations to Obtaining History: No Limitations - Past Medical History Gastrointestinal: Yes: Diverticulosis, Other (colovesical fistula) Hepatobiliary: Yes: Other (pancreatic cyst,patient being followed by Dr Tadeo) Renal/: Yes: Other (left hydronephrosis) - Past Surgical History Past Surgical History: Yes: Colostomy Additional Surgical History: left cystoscopy and DJ stent placement. small bowel resection - Alcohol/Substance Use Hx Alcohol Use: No - Smoking History Smoking history: Former smoker Have you smoked in the past 12 months: No If you are a former smoker, when did you quit?: 35 YRS AGO Home Medications - Allergies Allergies/Adverse Reactions: Allergies Allergy/AdvReac Type Severity Reaction Status Date / Time No Known Allergies Allergy Verified 04/29/19 10:12 - Home Medications Home Medications: Ambulatory Orders Metoprolol Succinate [Toprol XL -] 25 mg PO DAILY 10/25/16 Rosuvastatin Calcium [Crestor] 10 mg PO HS 10/25/16 Aspirin Coated [Ecotrin -] 325 mg PO DAILY 11/29/16 Review of Systems - Review of Systems Eyes: reports: No Symptoms Cardiovascular: reports: No Symptoms Respiratory: reports: No Symptoms Gastrointestinal: reports: Nausea (resolved) Genitourinary: reports: No Symptoms Physical Exam Vital Signs: Vital Signs Temperature 98.2 F 04/30/19 17:09 Pulse Rate 74 04/30/19 17:09 Respiratory Rate 20 04/30/19 17:09 Blood Pressure 144/98 04/30/19 17:09 O2 Sat by Pulse Oximetry (%) 97 04/30/19 09:00 Constitutional: Yes: No Distress, Calm Eyes: Yes: Conjunctiva Clear HENT: Yes: Normocephalic Neck: Yes: Supple Cardiovascular: Yes: Regular Rate and Rhythm Respiratory: Yes: CTA Bilaterally Gastrointestinal: Yes: Normal Bowel Sounds, Soft, Tenderness (none), Other (LLQ end colostomy viable with liquid stool in the bag) ...Rectal Exam: Yes: Deferred Labs: CBC, BMP 04/30/19 06:26 04/30/19 06:26 Imaging - Results Cat Scan: Report Reviewed, Image Reviewed Ultrasound: Report Reviewed, Image Reviewed Problem List - Problems (1) Acute gastric dilatation Assessment/Plan: Resolved May start clear liquid diet and advance as tolerated Patient had colorectal evaluation at [facility] and was told to have colostomy reversal and colovesical fistula resection in or 2019. Code(s): K31.0 - ACUTE DILATATION OF STOMACH (2) Vomiting Code(s): R11.10 - VOMITING, UNSPECIFIED
[2019-04-30] MEDS ORDERED: ROSUVASTATIN CA 10 MG TABLET (FP) PO SCH (22:00)
--- NOTE | 2019-05-01 00:28 | HP ---
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 CT A/P showed gastric distention without SBO. Patient refused NGT and currently denies N & V, and feels hungry. Colostomy noted to be functioning well. Denies abdominal pain. - Past Medical History Gastrointestinal: Yes: Diverticulosis, Other (colovesical fistula) Hepatobiliary: Yes: Other (pancreatic cyst,patient being followed by Dr Tadeo) Renal/: Yes: Other (left hydronephrosis) - Past Surgical History Past Surgical History: Yes: Colostomy - Smoking History Smoking history: Former smoker Have you smoked in the past 12 months: No If you are a former smoker, when did you quit?: 35 YRS AGO - Alcohol/Substance Use Hx Alcohol Use: No Home Medications - Allergies Allergies/Adverse Reactions: Allergies Allergy/AdvReac Type Severity Reaction Status Date / Time No Known Allergies Allergy Verified 04/29/19 10:12 - Home Medications Home Medications: Ambulatory Orders Metoprolol Succinate [Toprol XL -] 25 mg PO DAILY 10/25/16 Rosuvastatin Calcium [Crestor] 10 mg PO HS 10/25/16 Aspirin Coated [Ecotrin -] 325 mg PO DAILY 11/29/16 Family Medical History Family History: Unremarkable Review of Systems - Review of Systems Constitutional: reports: No Symptoms Eyes: reports: No Symptoms HENT: reports: No Symptoms Neck: reports: No Symptoms Cardiovascular: reports: No Symptoms Respiratory: reports: No Symptoms Gastrointestinal: reports: Nausea, Vomiting Genitourinary: reports: No Symptoms Physical Examination Vital Signs: Vital Signs Temperature 98.4 F 04/30/19 20:42 Pulse Rate 74 04/30/19 20:42 Respiratory Rate 16 04/30/19 20:42 Blood Pressure 156/96 04/30/19 20:42 O2 Sat by Pulse Oximetry (%) 97 04/30/19 09:00 Eyes: Yes: WNL HENT: Yes: WNL Neck: Yes: WNL, Supple Cardiovascular: Yes: WNL, Regular Rate and Rhythm Respiratory: Yes: WNL, Regular, CTA Bilaterally Gastrointestinal: Yes: Normal Bowel Sounds, Soft, Other ((+) colostomy) Extremities: Yes: WNL Edema: No Neurological: Yes: WNL, Alert, Oriented ...Motor Strength: WNL Labs: CBC, BMP 04/30/19 06:26 04/30/19 06:26 Problem List - Problems (1) Vomiting Assessment/Plan: ?Gastric dilatation Surgical consult noted Pt tolerating clear liquids GI consult Code(s): R11.10 - VOMITING, UNSPECIFIED (2) Anemia Code(s): D64.9 - ANEMIA, UNSPECIFIED (3) Colovesical fistula Assessment/Plan: Awaiting reversal of colostomy 08/04 Code(s): N32.1 - VESICOINTESTINAL FISTULA (4) HTN (hypertension) Code(s): I10 - ESSENTIAL (PRIMARY) HYPERTENSION
[2019-05-01] MEDS ORDERED: PT OWN MED DRAWER 7, Y5N ONE (09:08)
[2019-05-01] MEDS: metoPROLOL SUCCINATE 25 MG TAB.SR.24H (FP) PO SCH (09:10)
[2019-05-01] MEDS: ASPIRIN 325 MG ENTERIC COATED TABLET (FP) PO SCH (09:10)
[2019-05-01] MEDS: HEPARIN NA (PORCINE) 5,000 UNITS/ML 1ML VIAL SQ SCH ×2 (09:10→21:09)
[2019-05-01] MEDS: DEXTROSE 5%-0.45% SALINE 1,000 ML IV SCH (10:15)
--- NOTE | 2019-05-01 22:08 | PN ---
Progress Note, Physician History of Present Illness: No further vomiting Pt tolerating clear liquids - Current Medication List Current Medications: Active Medications Aspirin (Ecotrin -) 325 mg PO DAILY [facility] Last Admin: 05/01/19 09:10 Dose: 325 mg Heparin Sodium (Porcine) (Heparin -) 5,000 unit SQ BID [facility] Last Admin: 05/01/19 21:09 Dose: 5,000 unit Dextrose/Sodium Chloride (D5-1/2ns -) 1,000 mls @ 75 mls/hr IV ASDIR [facility] Last Admin: 05/01/19 10:15 Dose: 75 mls/hr Metoprolol Succinate (Toprol Xl -) 25 mg PO DAILY [facility] Last Admin: 05/01/19 09:10 Dose: 25 mg Ondansetron HCl (Zofran Injection) 4 mg IVPUSH Q8H PRN PRN Reason: NAUSEA - Objective Vital Signs: Vital Signs Temperature 98 F 05/01/19 15:00 Pulse Rate 69 05/01/19 17:10 Respiratory Rate 18 05/01/19 15:00 Blood Pressure 148/93 05/01/19 17:10 O2 Sat by Pulse Oximetry (%) 97 04/30/19 21:00 Neck: Yes: WNL, Supple Cardiovascular: Yes: WNL, Regular Rate and Rhythm Respiratory: Yes: WNL, Regular, CTA Bilaterally Gastrointestinal: Yes: WNL, Normal Bowel Sounds, Soft, Other ((+) colostomy) Labs: CBC, BMP 04/30/19 06:26 04/30/19 06:26 INR, PTT INR 1.06 (0.83-1.09) 04/29/19 10:00 Problem List - Problems (1) Colovesical fistula Assessment/Plan: Awaiting reversal of colostomy 08/04 Pt to have removal of B/L stents Code(s): N32.1 - VESICOINTESTINAL FISTULA (2) Vomiting Assessment/Plan: ?Gastric dilatation Surgical consult noted Diet advanced to fullo liquids GI consult Code(s): R11.10 - VOMITING, UNSPECIFIED (3) Anemia Code(s): D64.9 - ANEMIA, UNSPECIFIED (4) HTN (hypertension) Code(s): I10 - ESSENTIAL (PRIMARY) HYPERTENSION
--- NOTE | 2019-05-02 08:01 | CON.GI ---
Consult Consult Specialty:: GI Referred by:: Dr Lorraine Mercado Reason for Consultation:: Dilated Stomach - History of Present Illness Chief Complaint: Nausea, Vomiting History of Present Illness: Patient is a 69 y/o male with past medical history of HTN, recent left colovesical fistula/sigmoid inflammatory mass adherent to retroperitoneum/small bowel sigmoid fistula s/p diagnostic laparoscopy, laparatomy, small bowel resection, sigmoid end colostomy and Tyler's Pouch. Patient states on Sunday he woke up at 3am experiencing "gassy" feeling and then shortly after began vomiting. Vomitus was non-bloody, nonbilious. Denies experiencing abdominal pain with vomiting. Unable to keep liquids down. Abdominal/Pelvic CT scan shows gastric distention with fluid, consider NG decompression, no evidence of bowel obstruction, and residual small tiny cresentic collection within iliopsoas muscle. Patient currently denies further episodes of nausea and vomiting. Denies abdominal pain, diarrhea, constipation, melena. - History Source History Provided By: Patient Limitations to Obtaining History: No Limitations - Past Medical History Cardio/Vascular: Yes: HTN Gastrointestinal: Yes: Diverticulosis, Other (colovesical fistula) Hepatobiliary: Yes: Other (pancreatic cyst,patient being followed by Dr Tadeo) Renal/: Yes: Other (left hydronephrosis) - Past Surgical History Past Surgical History: Yes: Colostomy Additional Surgical History: left cystoscopy and DJ stent placement. small bowel resection - Alcohol/Substance Use Hx Alcohol Use: No - Smoking History Smoking history: Former smoker Have you smoked in the past 12 months: No If you are a former smoker, when did you quit?: 35 YRS AGO - Social History Usual Living Arrangement: With Spouse ADL: Independent History of Recent Travel: No Home Medications - Allergies Allergies/Adverse Reactions: Allergies Allergy/AdvReac Type Severity Reaction Status Date / Time No Known Allergies Allergy Verified 04/29/19 10:12 - Home Medications Home Medications: Ambulatory Orders Metoprolol Succinate [Toprol XL -] 25 mg PO DAILY 10/25/16 Rosuvastatin Calcium [Crestor] 10 mg PO HS 10/25/16 Aspirin Coated [Ecotrin -] 325 mg PO DAILY 11/29/16 Review of Systems - Review of Systems Constitutional: reports: No Symptoms Eyes: reports: No Symptoms HENT: reports: No Symptoms Neck: reports: No Symptoms Cardiovascular: reports: No Symptoms Respiratory: reports: No Symptoms Gastrointestinal: reports: No Symptoms Genitourinary: reports: No Symptoms Breasts: reports: No Symptoms Reported Musculoskeletal: reports: No Symptoms Integumentary: reports: No Symptoms Neurological: reports: No Symptoms Endocrine: reports: No Symptoms Hematology/Lymphatic: reports: No Symptoms Psychiatric: reports: No Symptoms Physical Exam-GI Vital Signs: Vital Signs Temperature 97.5 F L 05/02/19 06:00 Pulse Rate 63 05/02/19 06:00 Respiratory Rate 18 05/01/19 22:00 Blood Pressure 132/88 05/02/19 06:00 O2 Sat by Pulse Oximetry (%) 98 05/01/19 21:00 Constitutional: Yes: No Distress, Calm Eyes: Yes: Conjunctiva Clear HENT: Yes: Atraumatic Cardiovascular: Yes: Regular Rate and Rhythm Respiratory: Yes: Regular, CTA Bilaterally Gastrointestinal Inspection: Yes: WNL, Other (colostomy). No: Ascites, Distention, Hernia, Scars ...Auscultate: Yes: Normoactive Bowel Sounds. No: Hyperactive Bowel Sounds, Hypoactive Bowel Sounds, No Bowel Sounds, Other ...Palpate: Yes: Soft. No: Firm/Rigid, Guarding, Hepatomegaly, Mass, Pulsatile Mass, Splenomegaly, Tenderness, Tenderness, Epigastium, Tenderness, Rebound, Other ...Percussion: Yes: Tympanitic. No: Dullness, Fluid Wave, Other Neurological: Yes: Alert, Oriented Psychiatric: Yes: Alert, Oriented Labs: CBC, BMP 04/30/19 06:26 04/30/19 06:26 INR, PTT INR 1.06 (0.83-1.09) 04/29/19 10:00 Active Medications Generic Name Dose Route Start Last Admin Trade Name Freq PRN Reason Stop Dose Admin Aspirin 325 mg 04/30/19 10:00 05/01/19 09:10 Ecotrin - PO 325 mg DAILY JESSIKA Administration Heparin Sodium (Porcine) 5,000 unit 04/30/19 10:00 05/01/19 21:09 Heparin - SQ 5,000 unit BID JESSIKA Administration Dextrose/Sodium Chloride 1,000 mls @ 75 mls/hr 04/30/19 01:45 05/01/19 10:15 D5-1/2ns - IV 75 mls/hr ASDIR JESSIKA Administration Metoprolol Succinate 25 mg 04/30/19 10:00 05/01/19 09:10 Toprol Xl - PO 25 mg DAILY JESSIKA Administration Ondansetron HCl 4 mg 04/30/19 01:42 Zofran Injection IVPUSH Q8H PRN NAUSEA Imaging - Results Cat Scan: Report Reviewed Problem List - Problems (1) Acute gastric dilatation Assessment/Plan: >Surgery on board >patient refused NGT for decompression >tolerating clear liquid diet, advance as tolerated Code(s): K31.0 - ACUTE DILATATION OF STOMACH (2) Vomiting Assessment/Plan: >clear liquid diet, advance as tolerated >IV hydration >Zofran PRN Code(s): R11.10 - VOMITING, UNSPECIFIED
[2019-05-02] MEDS: ASPIRIN 325 MG ENTERIC COATED TABLET (FP) PO SCH (09:13)
[2019-05-02] MEDS: DEXTROSE 5%-0.45% SALINE 1,000 ML IV SCH ×2 (09:13→09:14)
[2019-05-02] MEDS: HEPARIN NA (PORCINE) 5,000 UNITS/ML 1ML VIAL SQ SCH ×2 (09:13→21:04)
[2019-05-02] MEDS: metoPROLOL SUCCINATE 25 MG TAB.SR.24H (FP) PO SCH (09:14)
[2019-05-02] MEDS ORDERED: ONDANSETRON 4 MG/2 ML VIAL IVPUSH PRN (13:58)
[2019-05-02] MEDS ORDERED: MORPHINE SULFATE 2 MG/ML VIAL IVPUSH PRN (13:58)
[2019-05-02] MEDS ORDERED: PT OWN MED DRAWER 7, Y5N ONE (14:03)
[2019-05-02] MEDS ORDERED: MIDAZOLAM HCL 2 MG/2 ML SINGLE DOSE VIAL ONE (15:01)
[2019-05-02] MEDS ORDERED: ceFAZolin SODIUM 1 GM VIAL IVPB ONE (15:15)
[2019-05-02] MEDS ORDERED: PROPOFOL 20 ML ONE (15:29)
--- NOTE | 2019-05-02 15:38 | OP ---
Operative Note - Note: Operative Date: 05/02/19 Pre-Operative Diagnosis: lt. jj stent, h/o vesicocolon fistula Operation: cysto, dil. and d/c of lt. jj stent, lt. retrograde pyelogram Findings: bnc and bph and lt. jj stent Post-Operative Diagnosis: Same as Pre-op Surgeon: Martin Jennings Anesthesia: General Specimens Removed: lt. jj stent Estimated Blood Loss (mls): 0 Drains, Volume Out (mls): 0 Blood Volume Replaced (mls): 0 Operative Report Dictated: Yes
[2019-05-02] MEDS: LACTATED RINGERS SOLUTION 1,000 ML IV SCH (17:15)
--- NOTE | 2019-05-02 23:12 | PN ---
Progress Note, Physician History of Present Illness: No further vomiting Pt tolerating clear liquids - Current Medication List Current Medications: Active Medications Aspirin (Ecotrin -) 325 mg PO DAILY [facility] Last Admin: 05/02/19 09:13 Dose: Not Given Fentanyl (Sublimaze Injection -) 25 mcg IVPUSH [id number] PRN PRN Reason: PAIN-PACU ORDER X 4 DOSES ONLY Stop: 05/03/19 02:00 Heparin Sodium (Porcine) (Heparin -) 5,000 unit SQ BID [facility] Last Admin: 05/02/19 21:04 Dose: 5,000 unit Dextrose/Sodium Chloride (D5-1/2ns -) 1,000 mls @ 75 mls/hr IV ASDIR [facility] Last Admin: 05/02/19 09:14 Dose: Not Given Lactated Ringer's (Lactated Ringers Solution) 1,000 mls @ 125 mls/hr IV ASDIR [facility] Last Admin: 05/02/19 17:15 Dose: 125 mls/hr Metoprolol Succinate (Toprol Xl -) 25 mg PO DAILY [facility] Last Admin: 05/02/19 09:14 Dose: 25 mg Morphine Sulfate (Morphine Sulfate) 2 mg IVPUSH [id number] PRN PRN Reason: PAIN-PACU ORDER X 4 DOSES ONLY Stop: 05/03/19 02:00 Ondansetron HCl (Zofran Injection) 4 mg IVPUSH Q8H PRN PRN Reason: NAUSEA Ondansetron HCl (Zofran Injection) 4 mg IVPUSH Q6H PRN PRN Reason: NAUSEA AND/OR VOMITING - Objective Vital Signs: Vital Signs Temperature 98.1 F 05/02/19 19:33 Pulse Rate 73 05/02/19 19:33 Respiratory Rate 20 05/02/19 21:00 Blood Pressure 154/86 05/02/19 19:33 O2 Sat by Pulse Oximetry (%) 98 05/02/19 21:00 Cardiovascular: Yes: WNL, Regular Rate and Rhythm Respiratory: Yes: WNL, Regular, CTA Bilaterally Gastrointestinal: Yes: WNL, Normal Bowel Sounds, Soft, Other ((+) colostomy) Labs: CBC, BMP 04/30/19 06:26 04/30/19 06:26 INR, PTT INR 1.06 (0.83-1.09) 04/29/19 10:00 Problem List - Problems (1) Colovesical fistula Assessment/Plan: Awaiting reversal of colostomy 08/04 Pt to have removal of B/L stents by uro Code(s): N32.1 - VESICOINTESTINAL FISTULA (2) Vomiting Assessment/Plan: ?Gastric dilatation Surgical/GI consults noted Diet advanced to full liquids Code(s): R11.10 - VOMITING, UNSPECIFIED (3) Anemia Assessment/Plan: H/H stable Code(s): D64.9 - ANEMIA, UNSPECIFIED (4) HTN (hypertension) Code(s): I10 - ESSENTIAL (PRIMARY) HYPERTENSION
[2019-05-03] MEDS ORDERED: PT OWN MED DRAWER 7, Y5N ONE (09:14)
[2019-05-03] MEDS: metoPROLOL SUCCINATE 25 MG TAB.SR.24H (FP) PO SCH (09:19)
[2019-05-03] MEDS: ASPIRIN 325 MG ENTERIC COATED TABLET (FP) PO SCH (09:19)
[2019-05-03] MEDS: HEPARIN NA (PORCINE) 5,000 UNITS/ML 1ML VIAL SQ SCH ×2 (09:19→21:21)
[2019-05-03] MEDS: LACTATED RINGERS SOLUTION 1,000 ML IV SCH (18:33)
[2019-05-03] MEDS: DEXTROSE 5%-0.45% SALINE 1,000 ML IV SCH (21:06)
--- NOTE | 2019-05-03 22:27 | PN ---
Progress Note, Physician History of Present Illness: No further vomiting Pt tolerating clear liquids - Current Medication List Current Medications: Active Medications Aspirin (Ecotrin -) 325 mg PO DAILY [facility] Last Admin: 05/03/19 09:19 Dose: 325 mg Heparin Sodium (Porcine) (Heparin -) 5,000 unit SQ BID [facility] Last Admin: 05/03/19 21:21 Dose: 5,000 unit Dextrose/Sodium Chloride (D5-1/2ns -) 1,000 mls @ 75 mls/hr IV ASDIR [facility] Last Admin: 05/03/19 21:06 Dose: Not Given Lactated Ringer's (Lactated Ringers Solution) 1,000 mls @ 125 mls/hr IV ASDIR [facility] Last Admin: 05/03/19 18:33 Dose: Not Given Metoprolol Succinate (Toprol Xl -) 25 mg PO DAILY [facility] Last Admin: 05/03/19 09:19 Dose: 25 mg Ondansetron HCl (Zofran Injection) 4 mg IVPUSH Q8H PRN PRN Reason: NAUSEA Ondansetron HCl (Zofran Injection) 4 mg IVPUSH Q6H PRN PRN Reason: NAUSEA AND/OR VOMITING - Objective Vital Signs: Vital Signs Temperature 97.9 F 05/03/19 18:27 Pulse Rate 64 05/03/19 18:27 Respiratory Rate 20 05/03/19 18:27 Blood Pressure 145/95 05/03/19 18:27 O2 Sat by Pulse Oximetry (%) 98 05/02/19 21:00 Neck: Yes: WNL, Supple Cardiovascular: Yes: WNL, Regular Rate and Rhythm Respiratory: Yes: WNL, Regular, CTA Bilaterally Gastrointestinal: Yes: WNL, Normal Bowel Sounds, Soft, Other ((+) colostomy LLQ) Extremities: Yes: WNL Edema: No Labs: CBC, BMP 04/30/19 06:26 04/30/19 06:26 INR, PTT INR 1.06 (0.83-1.09) 04/29/19 10:00 Problem List - Problems (1) Hydronephrosis Assessment/Plan: Renal US showed rt renal cyst vs enal mass As per uro ct scan abd/pelvis ordered Code(s): N13.30 - UNSPECIFIED HYDRONEPHROSIS (2) Colovesical fistula Assessment/Plan: Awaiting reversal of colostomy 08/04 Pt had removal of B/L stents by uro Code(s): N32.1 - VESICOINTESTINAL FISTULA (3) Vomiting Assessment/Plan: ?Gastric dilatation Surgical/GI consults noted Diet advanced to full liquids Code(s): R11.10 - VOMITING, UNSPECIFIED (4) Anemia Assessment/Plan: H/H stable Code(s): D64.9 - ANEMIA, UNSPECIFIED (5) HTN (hypertension) Code(s): I10 - ESSENTIAL (PRIMARY) HYPERTENSION
[2019-05-04] MEDS: metoPROLOL SUCCINATE 25 MG TAB.SR.24H (FP) PO SCH (11:03)
[2019-05-04] MEDS: ASPIRIN 325 MG ENTERIC COATED TABLET (FP) PO SCH (11:03)
[2019-05-04] MEDS: HEPARIN NA (PORCINE) 5,000 UNITS/ML 1ML VIAL SQ SCH ×2 (11:03→21:17)
--- NOTE | 2019-05-04 15:40 | PN ---
Progress Note (short form) - Note Progress Note: UROLOGY NOTE. PT. WITH COMPLEX RT. RENAL CYST. MUST R/O CYSTIC NEOPLASM. WILL GET CT WITH IV CONTRAST.
[2019-05-04] MEDS: DEXTROSE 5%-0.45% SALINE 1,000 ML IV SCH (18:02)
[2019-05-04] MEDS: LACTATED RINGERS SOLUTION 1,000 ML IV SCH (18:03)
[2019-05-05 07:25] LABS: EOS % 6.5 % (0-4.5); HEMOGLOBIN 10.8 GM/dL (11.7-16.9); LYMPH % 24.5 % (8-40); MCH 28.9 pg (25.7-33.7); MCHC 32.8 g/dl (32.0-35.9); MEAN CELL VOLUME 88.4 fl (80-96); MEAN PLT VOLUME 7.6 fl (7.5-11.1); MONO % 8.9 % (3.8-10.2); NEUT % 59.1 % (42.8-82.8); PLATELET COUNT 254 K/MM3 (134-434); RBC 3.74 M/mm3 (4.00-5.60); RDW 16.7 % (11.9-15.9); WHITE BLOOD COUNT 5.8 K/mm3 (4.0-10.0)
--- NOTE | 2019-05-05 07:48 | PN ---
Progress Note, Physician Chief Complaint: Nausea, Vomiting History of Present Illness: GI FOLLOW UP NOTES Patient examined and case discussed with Dr Hidalgo Patient denies further episodes of nausea and vomiting. He is tolerating full liquid diet. Denies abdominal pain, diarrhea, constipation, melena. Pending Abd/Pelvic CT scan after Renal US shows right renal cyst vs probable right renal mass. - Current Medication List Current Medications: Active Medications Aspirin (Ecotrin -) 325 mg PO DAILY [facility] Last Admin: 05/04/19 11:03 Dose: 325 mg Heparin Sodium (Porcine) (Heparin -) 5,000 unit SQ BID [facility] Last Admin: 05/04/19 21:17 Dose: 5,000 unit Dextrose/Sodium Chloride (D5-1/2ns -) 1,000 mls @ 75 mls/hr IV ASDIR [facility] Last Admin: 05/04/19 18:02 Dose: Not Given Lactated Ringer's (Lactated Ringers Solution) 1,000 mls @ 125 mls/hr IV ASDIR [facility] Last Admin: 05/04/19 18:03 Dose: Not Given Metoprolol Succinate (Toprol Xl -) 25 mg PO DAILY [facility] Last Admin: 05/04/19 11:03 Dose: 25 mg Ondansetron HCl (Zofran Injection) 4 mg IVPUSH Q8H PRN PRN Reason: NAUSEA Ondansetron HCl (Zofran Injection) 4 mg IVPUSH Q6H PRN PRN Reason: NAUSEA AND/OR VOMITING - Objective Vital Signs: Vital Signs Temperature 98.1 F 05/05/19 06:57 Pulse Rate 55 L 05/05/19 06:57 Respiratory Rate 20 05/05/19 06:57 Blood Pressure 139/77 05/05/19 06:57 O2 Sat by Pulse Oximetry (%) 99 05/04/19 21:00 Constitutional: Yes: No Distress, Calm Eyes: Yes: Conjunctiva Clear HENT: Yes: Atraumatic Cardiovascular: Yes: Regular Rate and Rhythm Respiratory: Yes: Regular, CTA Bilaterally Gastrointestinal: Yes: Normal Bowel Sounds, Soft, Other (colostomy) Neurological: Yes: Alert, Oriented Psychiatric: Yes: Alert, Oriented Labs: INR, PTT INR 1.06 (0.83-1.09) 04/29/19 10:00 Problem List - Problems (1) Acute gastric dilatation Assessment/Plan: -Surgery on board -Zofran PRN for nausea, vomiting -advance diet as tolerated Code(s): K31.0 - ACUTE DILATATION OF STOMACH (2) Vomiting Assessment/Plan: -Zofran PRN -advance diet as tolerated Code(s): R11.10 - VOMITING, UNSPECIFIED
[2019-05-05 07:56] LABS: ALBUMIN 2.8 g/dl (3.4-5.0); BILIRUBIN,TOTAL 0.4 mg/dL (0.2-1); BLOOD UREA NITROGEN 5.6 mg/dL (7-18); CALCIUM 8.6 mg/dL (8.5-10.1); POTASSIUM 3.8 mmol/L (3.5-5.1)
[2019-05-05] MEDS: HEPARIN NA (PORCINE) 5,000 UNITS/ML 1ML VIAL SQ SCH (10:09)
[2019-05-05] MEDS: metoPROLOL SUCCINATE 25 MG TAB.SR.24H (FP) PO SCH (10:09)
[2019-05-05] MEDS: ASPIRIN 325 MG ENTERIC COATED TABLET (FP) PO SCH (10:09)
--- NOTE | 2019-05-05 14:18 | CON.PULM ---
Consult Consult Specialty:: PULM/CCM Referred by:: SANDRA Reason for Consultation:: PE - History of Present Illness Chief Complaint: Abnormal CT History of Present Illness: 69 M, HPL and HTN. 03/06: s/p cystoscopy/cystogram/L JJ stent insertion (Dr. Huizar). 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 Ryan). No previous personal or family history of VTE. No extended travel history or prolonged periods of immobilization. CT scan of the Ab/Pelvis performed and revealed a LLL filling defect consistent with a Pulmonary embolism. No fever or chills. No hemoptysis or night sweats. Denies SOB or CARRANZA. - History Source History Provided By: Patient Limitations to Obtaining History: No Limitations - Past Medical History Cardio/Vascular: Yes: HTN Pulmonary: No: Asthma, Bronchitis, Cancer, COPD, O2 Dependent, Pneumonia, Previously Intubated, Pulmonary Embolus, Pulmonary Fibrosis, Sleep Apnea Gastrointestinal: Yes: Diverticulosis, Other (colovesical fistula) Hepatobiliary: Yes: Other (pancreatic cyst,patient being followed by Dr Tadeo) Renal/: Yes: Other (left hydronephrosis) - Past Surgical History Past Surgical History: Yes: Colostomy Additional Surgical History: left cystoscopy and DJ stent placement. small bowel resection - Alcohol/Substance Use Hx Alcohol Use: No - Smoking History Smoking history: Former smoker Have you smoked in the past 12 months: No If you are a former smoker, when did you quit?: 35 YRS AGO - Social History Usual Living Arrangement: With Spouse ADL: Independent History of Recent Travel: No Home Medications - Allergies Allergies/Adverse Reactions: Allergies Allergy/AdvReac Type Severity Reaction Status Date / Time No Known Allergies Allergy Verified 04/29/19 10:12 - Home Medications Home Medications: Ambulatory Orders Metoprolol Succinate [Toprol XL -] 25 mg PO DAILY 10/25/16 Rosuvastatin Calcium [Crestor] 10 mg PO HS 10/25/16 Aspirin Coated [Ecotrin -] 325 mg PO DAILY 11/29/16 Review of Systems - Review of Systems Constitutional: denies: Chills, Fever, Malaise, Night Sweats, Unintentional Wgt. Loss Eyes: reports: No Symptoms HENT: reports: No Symptoms Neck: reports: No Symptoms Cardiovascular: denies: Chest Pain, Edema, Palpitations, Shortness of Breath Respiratory: denies: Cough, Exercise Intolerance, Hemoptysis, Orthopnea, PND, Snoring, SOB, SOB on Exertion, Wheezing Gastrointestinal: reports: Abdominal Pain, Dysphagia, Nausea. denies: Rectal Bleeding Genitourinary: reports: Dysuria, Flank Pain, Frequency Breasts: reports: No Symptoms Reported Musculoskeletal: reports: No Symptoms Integumentary: reports: No Symptoms Neurological: reports: No Symptoms Endocrine: reports: No Symptoms Hematology/Lymphatic: reports: No Symptoms Psychiatric: reports: No Symptoms Physical Exam Vital Sings: Vital Signs Temperature 98.1 F 05/05/19 06:57 Pulse Rate 55 L 05/05/19 06:57 Respiratory Rate 20 05/05/19 06:57 Blood Pressure 139/77 05/05/19 06:57 O2 Sat by Pulse Oximetry (%) 99 05/04/19 21:00 Constitutional: Yes: No Distress Eyes: Yes: Conjunctiva Clear, EOM Intact HENT: Yes: Atraumatic, Normocephalic Neck: Yes: Supple, Trachea Midline Cardiovascular: Yes: Regular Rate and Rhythm Respiratory: No: Accessory Muscle Use, Rales, Rhonchi, SOB, SOB on Exertion, Stridor, Tachypnea, Wheezes ...Inspection: Yes: WNL ...Clubbing: No Gastrointestinal: Yes: Normal Bowel Sounds, Soft Renal/: Yes: WNL Extremities: Yes: WNL Edema: No Peripheral Pulses WNL: Yes Integumentary: Yes: WNL Neurological: Yes: WNL, Alert, Oriented ...Motor Strength: WNL Psychiatric: Yes: WNL, Alert, Oriented Labs: CBC, BMP 05/05/19 06:40 05/05/19 06:40 Imaging - Results Cat Scan: Report Reviewed, Image Reviewed Problem List - Problems (1) Pulmonary embolism Code(s): I26.99 - OTHER PULMONARY EMBOLISM WITHOUT ACUTE COR PULMONALE (2) Acute gastric dilatation Code(s): K31.0 - ACUTE DILATATION OF STOMACH (3) Colovesical fistula Code(s): N32.1 - VESICOINTESTINAL FISTULA Assessment/Plan Lovenox 70mg SQ Q12h. Likely can place of DOAC upon discharge O2 as needed Bilateral LE venous dupplex to R/O DVT ECHO No clear precipitating factors for VTE, should have hypercoaguable workup as an outpatient O2 if needed Will follow Thank you. Dr Jules
[2019-05-05] MEDS: ENOXAPARIN NA (PORCINE) 80 MG/0.8 ML DISP.SYRIN SQ SCH ×2 (15:02→21:25)
--- NOTE | 2019-05-05 15:52 | OP ---
DATE OF OPERATION: 05/02/2019 PREOPERATIVE DIAGNOSIS: Right JJ stent, status post urinary colostomy and Tiffanie pouch for vesicosigmoid fistula, status post left JJ stent. OPERATIVE PROCEDURE: Cystourethroscopy, bladder neck dilation, and removal of JJ stent. ANESTHESIA: General. DESCRIPTION OF PROCEDURE: Under above stated anesthesia, patient was prepped and draped in the usual sterile manner. He was placed in the dorsal lithotomy position. Cystoscopy under direct vision revealed a normal anterior urethra. Prostatic urethra revealed a tight bladder neck. There was bilobar hypertrophy of the prostate. Using A urethrotome, the bladder neck was excised at the 12 o'clock position. The bladder was entered, urine was collected for cytology and C&S. Inspection of the bladder revealed a left JJ stent protruding from the left ureteral orifice. No other lesions or calculi were seen. A biopsy forceps was introduced, and the JJ stent was removed atraumatically. A Flexi-Tip catheter was placed at the level of the left ureteral orifice and 5 mL of contrast was injected. This revealed a normal left renal unit . The bladder was emptied. The scope was removed. The patient tolerated the procedure well. He returned to the recovery room in good condition. Amadeo [id number]
[2019-05-05] MEDS: LACTATED RINGERS SOLUTION 1,000 ML/1,000 ML INFUS.BAG IV SCH (18:33)
--- NOTE | 2019-05-05 22:16 | PN ---
Progress Note, Physician History of Present Illness: No further vomiting Pt tolerating diet - Current Medication List Current Medications: Active Medications Aspirin (Ecotrin -) 325 mg PO DAILY [facility] Last Admin: 05/05/19 10:09 Dose: 325 mg Enoxaparin Sodium (Lovenox -) 70 mg SQ BID [facility] Last Admin: 05/05/19 21:25 Dose: 70 mg Lactated Ringer's (Lactated Ringers Solution) 1,000 ml in 1,000 mls @ 75 mls/ hr IV ASDIR [facility] Last Admin: 05/05/19 18:33 Dose: 75 mls/hr Metoprolol Succinate (Toprol Xl -) 25 mg PO DAILY [facility] Last Admin: 05/05/19 10:09 Dose: 25 mg Ondansetron HCl (Zofran Injection) 4 mg IVPUSH Q8H PRN PRN Reason: NAUSEA Ondansetron HCl (Zofran Injection) 4 mg IVPUSH Q6H PRN PRN Reason: NAUSEA AND/OR VOMITING - Objective Vital Signs: Vital Signs Temperature 98.8 F 05/05/19 18:16 Pulse Rate 59 L 05/05/19 18:16 Respiratory Rate 18 05/05/19 18:16 Blood Pressure 155/95 05/05/19 18:16 O2 Sat by Pulse Oximetry (%) 99 05/04/19 21:00 Neck: Yes: WNL, Supple Cardiovascular: Yes: WNL, Regular Rate and Rhythm Respiratory: Yes: WNL, Regular, CTA Bilaterally Gastrointestinal: Yes: WNL, Normal Bowel Sounds, Soft, Other ((+) LLQ colostomy) Labs: CBC, BMP 05/05/19 06:40 05/05/19 06:40 INR, PTT INR 1.06 (0.83-1.09) 04/29/19 10:00 Problem List - Problems (1) Pulmonary embolus Assessment/Plan: CT scan abd/pelvis actually showed LLL emboli(PE) Check cta chest Pulmonary consult noted Heme consult Cont lovenox Code(s): I26.99 - OTHER PULMONARY EMBOLISM WITHOUT ACUTE COR PULMONALE (2) DVT (deep venous thrombosis) Assessment/Plan: Dopplers showed RLE DVT Cont lovenox Code(s): I82.409 - ACUTE EMBOLISM AND THOMBOS UNSP DEEP VN UNSP LOWER EXTREMITY (3) Hydronephrosis Assessment/Plan: Renal US showed rt renal cyst vs enal mass Repeat ct scan abd/pelvis showed hydronephrosis after removing Lt renal stent Code(s): N13.30 - UNSPECIFIED HYDRONEPHROSIS (4) Colovesical fistula Assessment/Plan: Awaiting reversal of colostomy 08/04 Pt had removal of B/L stents by uro Code(s): N32.1 - VESICOINTESTINAL FISTULA (5) Vomiting Assessment/Plan: ?Gastric dilatation Surgical/GI consults noted Cont diet CT scan abd/pelvis showed 6 cm pancreatic lesion in body of pancreas Pt was supposed to see Dr Patiño for f/u due to this pancreatic lesion Code(s): R11.10 - VOMITING, UNSPECIFIED (6) Anemia Assessment/Plan: H/H stable Code(s): D64.9 - ANEMIA, UNSPECIFIED (7) HTN (hypertension) Code(s): I10 - ESSENTIAL (PRIMARY) HYPERTENSION (8) Renal mass Assessment/Plan: Repeat CT scan abd/pelvis showed RT Code(s): N28.89 - OTHER SPECIFIED DISORDERS OF KIDNEY AND URETER
[2019-05-06] MEDS: LACTATED RINGERS SOLUTION 1,000 ML/1,000 ML INFUS.BAG IV SCH ×2 (08:30→14:30)
--- NOTE | 2019-05-06 09:05 | PN ---
Progress Note, Physician Chief Complaint: Nausea, Vomiting History of Present Illness: GI FOLLOW UP NOTES Patient examined and case discussed with Dr Hidalgo Patient denies further episodes of nausea and vomiting. Denies abdominal pain, diarrhea, constipation, melena. Abdominal and Pelvic CT scan shows 6.3 low density lesion within the body of the pancreas is noted which could represent a cystic neoplasm or simple cyst. Previous MRI from 04/25/18 shows 6mm pancreatic rail cyst, PD measured 5mm, minimally prominent adjacent pancreatic side branch. Previous CA 19-9 normal at 4 and mildly elevated CEA at 4.8. After colonoscopy on 05/07/18 was instructed to follow up with Dr Tadeo for prominent duct and pancreatic cyst. 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 - Current Medication List Current Medications: Active Medications Aspirin (Ecotrin -) 325 mg PO DAILY [facility] Last Admin: 05/05/19 10:09 Dose: 325 mg Enoxaparin Sodium (Lovenox -) 70 mg SQ BID [facility] Last Admin: 05/05/19 21:25 Dose: 70 mg Lactated Ringer's (Lactated Ringers Solution) 1,000 ml in 1,000 mls @ 75 mls/ hr IV ASDIR [facility] Last Admin: 05/05/19 18:33 Dose: 75 mls/hr Metoprolol Succinate (Toprol Xl -) 25 mg PO DAILY [facility] Last Admin: 05/05/19 10:09 Dose: 25 mg Ondansetron HCl (Zofran Injection) 4 mg IVPUSH Q8H PRN PRN Reason: NAUSEA Ondansetron HCl (Zofran Injection) 4 mg IVPUSH Q6H PRN PRN Reason: NAUSEA AND/OR VOMITING - Objective Vital Signs: Vital Signs Temperature 98 F 05/06/19 06:16 Pulse Rate 59 L 05/06/19 06:16 Respiratory Rate 20 05/06/19 06:16 Blood Pressure 151/97 05/06/19 06:16 O2 Sat by Pulse Oximetry (%) 97 05/05/19 21:00 Constitutional: Yes: No Distress, Calm Eyes: Yes: Conjunctiva Clear HENT: Yes: Atraumatic Cardiovascular: Yes: Regular Rate and Rhythm Respiratory: Yes: Regular, CTA Bilaterally Gastrointestinal: Yes: Normal Bowel Sounds, Soft Neurological: Yes: Alert, Oriented Psychiatric: Yes: Alert, Oriented Labs: CBC, BMP 05/05/19 06:40 05/05/19 06:40 INR, PTT INR 1.06 (0.83-1.09) 04/29/19 10:00 Problem List - Problems (1) Acute gastric dilatation Code(s): K31.0 - ACUTE DILATATION OF STOMACH (2) Vomiting Code(s): R11.10 - VOMITING, UNSPECIFIED
[2019-05-06] MEDS: metoPROLOL SUCCINATE 25 MG TAB.SR.24H (FP) PO SCH (09:28)
[2019-05-06] MEDS: ASPIRIN 325 MG ENTERIC COATED TABLET (FP) PO SCH (09:28)
[2019-05-06] MEDS: ENOXAPARIN NA (PORCINE) 80 MG/0.8 ML DISP.SYRIN SQ SCH ×2 (09:29→21:35)
--- NOTE | 2019-05-06 10:11 | PN ---
Progress Note (short form) - Note Progress Note: PULMONARY Denies shortness of breath, chest pain or palpitations. Saturating well on room air. Vital Signs Period Temp Pulse Resp BP Sys/Zuniga Pulse Ox Last 24 Hr 97.7 F-98.8 F 59-63 18-20 145-155/87-97 97 Gen: NAD in chair Heart: RRR Lung: decreased breath sounds at the bases Abd: soft, +ostomy Ext: no edema CBC, BMP 05/05/19 06:40 05/05/19 06:40 Active Medications Aspirin (Ecotrin -) 325 mg PO DAILY [facility] Last Admin: 05/06/19 09:28 Dose: 325 mg Enoxaparin Sodium (Lovenox -) 70 mg SQ BID [facility] Last Admin: 05/06/19 09:29 Dose: 70 mg Lactated Ringer's (Lactated Ringers Solution) 1,000 ml in 1,000 mls @ 75 mls/ hr IV ASDIR [facility] Last Admin: 05/05/19 18:33 Dose: 75 mls/hr Metoprolol Succinate (Toprol Xl -) 25 mg PO DAILY [facility] Last Admin: 05/06/19 09:28 Dose: 25 mg Ondansetron HCl (Zofran Injection) 4 mg IVPUSH Q8H PRN PRN Reason: NAUSEA Ondansetron HCl (Zofran Injection) 4 mg IVPUSH Q6H PRN PRN Reason: NAUSEA AND/OR VOMITING A/P Acute Pulmonary Emboli RLE DVT s/p L JJ stent removal HTN Hyperlipidemia Anemia - can start oral anticoagulation if no further procedures planned - can start Eliquis 10mg BID x 7 days then 5 mg BID for at least 3 months - monitor H/H
--- NOTE | 2019-05-06 13:28 | CONSULT ---
Consult Consult Specialty:: hematology and oncology Reason for Consultation:: PE - History of Present Illness Chief Complaint: Abdominal pain, nausea, vomiting. History of Present Illness: Patient is a 69 yo m w/ PMH HLD, HTN, benign abdominal mass s/p bowel resection and ostomy who presented with nausea, vomiting and abdominal distension. He was found to have an SBO which was treated medically. He also had a ureteral stent removed. CTAP during admisson incidentally detected lower lobe PEs. On interview, the patient is well appearing and asymptomatic. Patient denies personal history of cancer or clotting disorder. Patient denies family history of clotting disorder or cancer. Patient states that he has been ambulatory during his stay here, but was more sedentary a few months ago. Patient not on AC as an outpatient. - History Source History Provided By: Patient Limitations to Obtaining History: No Limitations - Past Medical History Cardio/Vascular: Yes: HTN Pulmonary: No: Asthma, Bronchitis, Cancer, COPD, O2 Dependent, Pneumonia, Previously Intubated, Pulmonary Embolus, Pulmonary Fibrosis, Sleep Apnea Gastrointestinal: Yes: Diverticulosis, Other (colovesical fistula) Hepatobiliary: Yes: Other (pancreatic cyst,patient being followed by Dr Tadeo) Renal/: Yes: Other (left hydronephrosis) - Past Surgical History Past Surgical History: Yes: Colostomy Additional Surgical History: left cystoscopy and DJ stent placement. small bowel resection - Alcohol/Substance Use Hx Alcohol Use: No - Smoking History Smoking history: Former smoker Have you smoked in the past 12 months: No If you are a former smoker, when did you quit?: 35 YRS AGO - Social History Usual Living Arrangement: With Spouse ADL: Independent History of Recent Travel: No Home Medications - Allergies Allergies/Adverse Reactions: Allergies Allergy/AdvReac Type Severity Reaction Status Date / Time No Known Allergies Allergy Verified 04/29/19 10:12 - Home Medications Home Medications: Ambulatory Orders Metoprolol Succinate [Toprol XL -] 25 mg PO DAILY 10/25/16 Rosuvastatin Calcium [Crestor] 10 mg PO HS 10/25/16 Aspirin Coated [Ecotrin -] 325 mg PO DAILY 11/29/16 Review of Systems - Review of Systems Constitutional: reports: No Symptoms Eyes: reports: No Symptoms HENT: reports: No Symptoms Neck: reports: No Symptoms Cardiovascular: reports: No Symptoms Respiratory: reports: No Symptoms Gastrointestinal: reports: No Symptoms Physical Exam Vital Signs: Vital Signs Temperature 98.2 F 05/06/19 10:00 Pulse Rate 66 05/06/19 10:00 Respiratory Rate 20 05/06/19 10:00 Blood Pressure 143/93 05/06/19 10:00 O2 Sat by Pulse Oximetry (%) 99 05/06/19 09:00 Constitutional: Yes: No Distress, Calm HENT: Yes: Atraumatic, Normocephalic Cardiovascular: Yes: Regular Rate and Rhythm, S1, S2. No: Gallop, Murmur, Rub Respiratory: Yes: Regular, CTA Bilaterally Gastrointestinal: Yes: Normal Bowel Sounds, Soft Extremities: Yes: WNL. No: Calf Tenderness, Erythema Edema: No Neurological: Yes: Alert, Oriented Labs: CBC, BMP 05/05/19 06:40 05/05/19 06:40 Assessment/Plan Patient is a 69 yo m w/ PMH HLD, HTN, benign abdominal mass s/p bowel resection and ostomy who presented with nausea, vomiting and abdominal distension. He was found to have an SBO which was treated medically. He also had a ureteral stent removed. CTAP during admission incidentally detected lower lobe PEs. #Pulmonary embolism -no history of clots in the past -on lovenox 70mg BID SQ -recommend 5 days of lovenox SQ, then transition to PO eliquis 10mg BID for 7 days, then 5mg BID after -will require outpatient f/u w/ hematology for possible hypercoagulable workup later
--- NOTE | 2019-05-06 17:20 | PATH ---
Surgical Pathology Report Patient Name: VICKY POP JR Med. Rec. #: [id number] /Age/Gender: 1950 (Age: 69) / M Account: [id number] Location: [facility] MED/SURG Taken: 05/02/2019 Received: 05/05/2019 Reported: 05/06/2019 Physicians: Martin Jennings Specimen(s) Received STENT REMOVAL Clinical History Vesicle colonic fistula Final Diagnosis REMOVED STENT: SEGMENT OF STENT. GROSS EXAMINATION ONLY. Electronically Signed Anish Kinney M.D. Gross Description Received fresh labeled "removed stent," is a 35 cm in length blue-green, coiled portion of tubing, consistent with a ureteral stent. No soft tissue is present. No sections are submitted, gross only. /05/05/2019 saudi05/05/2019
--- NOTE | 2019-05-06 19:50 | PN ---
Progress Note (short form) - Note Progress Note: I have seen and examined Kentrell Acevedo Jr with Dr. Hallman. Agree with his note and plan S: No complaints. Denied SOB or Chest pain O: Last Vital Signs Temp Pulse Resp BP Pulse Ox 97.8 F 60 20 145/85 99 05/06/19 16:30 05/06/19 16:30 05/06/19 16:30 05/06/19 16:30 05/06/19 09:00 Gen: NAD HEENT: MMM Heart: S1, S2 Lung: CTAB Abd: soft, +ostomy Ext: no edema 05/05/19 06:40 05/05/19 06:40 Current Medications Aspirin (Ecotrin -) 325 mg PO DAILY [facility] Last Admin: 05/06/19 09:28 Dose: 325 mg Enoxaparin Sodium (Lovenox -) 70 mg SQ BID [facility] Last Admin: 05/06/19 09:29 Dose: 70 mg Lactated Ringer's (Lactated Ringers Solution) 1,000 ml in 1,000 mls @ 75 mls/ hr IV ASDIR [facility] Last Admin: 05/06/19 14:30 Dose: Not Given Metoprolol Succinate (Toprol Xl -) 25 mg PO DAILY [facility] Last Admin: 05/06/19 09:28 Dose: 25 mg Ondansetron HCl (Zofran Injection) 4 mg IVPUSH Q8H PRN PRN Reason: NAUSEA Ondansetron HCl (Zofran Injection) 4 mg IVPUSH Q6H PRN PRN Reason: NAUSEA AND/OR VOMITING Assessment and Plan: 69 /o gentleman with recently diangosed pulmonary embolism (reported acute) and RLE DVT Recommend: 1) Continue Lovenox for 5 days 2) Agree with Apixaban 10 mg BID X 7 days and 5 mg BID afterwards. Please send prescriptions for all anticoagulants (Lovenox and Eliquis before he goes) 3) Needs hematology outpatient follow-up with Dr. Perez or Dr. Tariq. May need hyper-coagulable work-up later on 4) Thank you for this consult.
--- NOTE | 2019-05-06 20:28 | PN ---
Progress Note, Physician History of Present Illness: Pt tolerating diet - Current Medication List Current Medications: Active Medications Aspirin (Ecotrin -) 325 mg PO DAILY [facility] Last Admin: 05/06/19 09:28 Dose: 325 mg Enoxaparin Sodium (Lovenox -) 70 mg SQ BID [facility] Last Admin: 05/06/19 09:29 Dose: 70 mg Lactated Ringer's (Lactated Ringers Solution) 1,000 ml in 1,000 mls @ 75 mls/ hr IV ASDIR [facility] Last Admin: 05/06/19 14:30 Dose: Not Given Metoprolol Succinate (Toprol Xl -) 25 mg PO DAILY [facility] Last Admin: 05/06/19 09:28 Dose: 25 mg Ondansetron HCl (Zofran Injection) 4 mg IVPUSH Q8H PRN PRN Reason: NAUSEA Ondansetron HCl (Zofran Injection) 4 mg IVPUSH Q6H PRN PRN Reason: NAUSEA AND/OR VOMITING - Objective Vital Signs: Vital Signs Temperature 97.8 F 05/06/19 16:30 Pulse Rate 60 05/06/19 16:30 Respiratory Rate 20 05/06/19 16:30 Blood Pressure 145/85 05/06/19 16:30 O2 Sat by Pulse Oximetry (%) 99 05/06/19 09:00 Neck: Yes: WNL, Supple Cardiovascular: Yes: WNL, Regular Rate and Rhythm Respiratory: Yes: WNL, Regular, CTA Bilaterally Gastrointestinal: Yes: WNL, Normal Bowel Sounds, Soft, Other ((+) LLQ Colostomy) Labs: CBC, BMP 05/05/19 06:40 05/05/19 06:40 INR, PTT INR 1.06 (0.83-1.09) 04/29/19 10:00 Problem List - Problems (1) Pulmonary embolus Assessment/Plan: CT scan abd/pelvis actually showed LLL emboli(PE) Cont lovenox Awaiting results of cta chest Code(s): I26.99 - OTHER PULMONARY EMBOLISM WITHOUT ACUTE COR PULMONALE (2) DVT (deep venous thrombosis) Assessment/Plan: Dopplers showed RLE DVT Cont lovenox Code(s): I82.409 - ACUTE EMBOLISM AND THOMBOS UNSP DEEP VN UNSP LOWER EXTREMITY (3) Hydronephrosis Code(s): N13.30 - UNSPECIFIED HYDRONEPHROSIS (4) Colovesical fistula Assessment/Plan: Awaiting reversal of colostomy 08/04 Pt had removal of B/L stents by uro Code(s): N32.1 - VESICOINTESTINAL FISTULA (5) Vomiting Assessment/Plan: ?Gastric dilatation Surgical/GI consults noted Cont diet CT scan abd/pelvis showed 6 cm pancreatic lesion in body of pancreas Pt was supposed to see Dr Patiño for f/u due to this pancreatic lesion Code(s): R11.10 - VOMITING, UNSPECIFIED (6) Anemia Assessment/Plan: H/H stable Code(s): D64.9 - ANEMIA, UNSPECIFIED (7) HTN (hypertension) Code(s): I10 - ESSENTIAL (PRIMARY) HYPERTENSION (8) Renal mass Assessment/Plan: Repeat CT scan abd/pelvis showed RT Code(s): N28.89 - OTHER SPECIFIED DISORDERS OF KIDNEY AND URETER
--- NOTE | 2019-05-07 08:46 | PN ---
Progress Note, Physician Chief Complaint: Nausea, Vomiting History of Present Illness: GI FOLLOW UP NOTES Patient examined and case discussed with Dr Hidalgo Patient denies further episodes of nausea and vomiting. Denies abdominal pain, diarrhea, constipation, melena. CA 19-9 results pending and patient is waiting for Abdominal MRI. Chest CTA results reviewed. - Current Medication List Current Medications: Active Medications Aspirin (Ecotrin -) 325 mg PO DAILY [facility] Last Admin: 05/06/19 09:28 Dose: 325 mg Enoxaparin Sodium (Lovenox -) 70 mg SQ BID [facility] Last Admin: 05/06/19 21:35 Dose: 70 mg Lactated Ringer's (Lactated Ringers Solution) 1,000 ml in 1,000 mls @ 75 mls/ hr IV ASDIR [facility] Last Admin: 05/06/19 14:30 Dose: Not Given Metoprolol Succinate (Toprol Xl -) 25 mg PO DAILY [facility] Last Admin: 05/06/19 09:28 Dose: 25 mg Ondansetron HCl (Zofran Injection) 4 mg IVPUSH Q8H PRN PRN Reason: NAUSEA Ondansetron HCl (Zofran Injection) 4 mg IVPUSH Q6H PRN PRN Reason: NAUSEA AND/OR VOMITING - Objective Vital Signs: Vital Signs Temperature 97.9 F 05/07/19 06:00 Pulse Rate 61 05/07/19 06:00 Respiratory Rate 20 05/07/19 06:00 Blood Pressure 150/87 05/07/19 06:00 O2 Sat by Pulse Oximetry (%) 99 05/06/19 09:00 Constitutional: Yes: No Distress, Calm Eyes: Yes: Conjunctiva Clear HENT: Yes: Atraumatic Cardiovascular: Yes: Regular Rate and Rhythm Respiratory: Yes: Regular, CTA Bilaterally Gastrointestinal: Yes: Normal Bowel Sounds, Soft, Other (colostomy) Neurological: Yes: Alert, Oriented Psychiatric: Yes: Alert, Oriented Labs: CBC, BMP 05/05/19 06:40 05/05/19 06:40 INR, PTT INR 1.06 (0.83-1.09) 04/29/19 10:00 Problem List - Problems (1) Acute gastric dilatation Assessment/Plan: -Surgery on board -Zofran PRN for nausea, vomiting -advance diet as tolerated Code(s): K31.0 - ACUTE DILATATION OF STOMACH (2) Vomiting Assessment/Plan: -Zofran PRN -advance diet as tolerated Code(s): R11.10 - VOMITING, UNSPECIFIED (3) Pancreatic cyst Assessment/Plan: -CA 19-9 pending -waiting for Abdominal MRI -Abdominal and Pelvic CT scan shows 6.3 low density lesion within the body of the pancreas is noted which could represent a cystic neoplasm or simple cyst. -Previous MRI from 04/25/18 shows 6mm pancreatic rail cyst, PD measured 5mm, minimally prominent adjacent pancreatic side branch. Previous CA 19-9 normal at 4 and mildly elevated CEA at 4.8. After colonoscopy on 05/07/18 was instructed to follow up with Dr Tadeo for prominent duct and pancreatic cyst. Code(s): K86.2 - CYST OF PANCREAS
[2019-05-07] MEDS ORDERED: PT OWN MED DRAWER 7, Y5N ONE (09:26)
[2019-05-07] MEDS: ASPIRIN 325 MG ENTERIC COATED TABLET (FP) PO SCH (09:30)
[2019-05-07] MEDS: ENOXAPARIN NA (PORCINE) 80 MG/0.8 ML DISP.SYRIN SQ SCH ×2 (09:30→21:57)
[2019-05-07] MEDS: metoPROLOL SUCCINATE 25 MG TAB.SR.24H (FP) PO SCH (09:30)
[2019-05-07] MEDS: LACTATED RINGERS SOLUTION 1,000 ML/1,000 ML INFUS.BAG IV SCH ×2 (11:20→18:33)
--- NOTE | 2019-05-07 11:31 | PATH ---
Cytology Non-Gynecological Report Patient Name: VICKY POP JR Med. Rec. #: [id number] /Age/Gender: 1950 (Age: 69) / M Account: [id number] Location: [facility] MED/SURG Taken: 05/02/2019 Received: 05/05/2019 Reported: 05/07/2019 Physicians: Lorraine Mercado M.D. Specimen(s) Received URINE Clinical History Status post urinary colostomy and Tiffanie pouch for vesicosigmoid fistula Final Diagnosis URINE FOR CYTOLOGY: SATISFACTORY FOR EVALUATION. NEGATIVE FOR HIGH GRADE UROTHELIAL CARCINOMA. MARKED DEGENERATED COLUMNAR CELLS, RED BLOOD CELLS, AND NEUTROPHILS PRESENT. Comment: Clinical history of vesicosigmoid fistula noted. Electronically Signed Anish Kinney M.D. Gross Description Approximately 15cc of cloudy yellow fluid received fresh. Two cytospin prepared.
--- NOTE | 2019-05-07 12:04 | CONSULT ---
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 Vascular consulted for 3.6cm AAA. Pt reports he had no knowledge of AAA. Denies abdo pain. Reports his maternal grandfather from a ruptured AAA. Has a remote h/o social tobacco use >35 years ago. Prior to his recent colon surgeries pt reports he ambulated unlimited amounts with no le pain. PMHx: as above PSHx: as above Home Medications Medication Instructions Recorded Metoprolol Succinate [Toprol XL -] 25 mg PO DAILY 10/25/16 Rosuvastatin Calcium [Crestor] 10 mg PO HS 10/25/16 Aspirin Coated [Ecotrin -] 325 mg PO DAILY 11/29/16 Allergies Allergy/AdvReac Type Severity Reaction Status Date / Time No Known Allergies Allergy Verified 04/29/19 10:12 REVIEW OF SYSTEMS: CONSTITUTIONAL: Absent: fever, chills CARDIOVASCULAR: Absent: chest pain RESPIRATORY: Absent: cough PHYSICAL EXAM: GENERAL: Awake, alert, and fully oriented, in no acute distress. HEAD: Normal with no signs of trauma. ABDOMEN: Soft, nontender, not distended, colostomy in place. No palpable pulsatile mass. LOWER EXTREMITIES: 2+ palpable femoral, palpable pop (no pulsatile mass), 2+ b/ l pts 1+ b/ dps. No peripheral edema. Vital Signs Temperature 97.9 F 05/07/19 06:00 Pulse Rate 61 05/07/19 06:00 Respiratory Rate 20 05/07/19 06:00 Blood Pressure 150/87 05/07/19 06:00 O2 Sat by Pulse Oximetry (%) 99 05/06/19 09:00 Lab Results WBC 5.8 K/mm3 (4.0-10.0) 05/05/19 06:40 RBC 3.74 M/mm3 (4.00-5.60) L 05/05/19 06:40 Hgb 10.8 GM/dL (11.7-16.9) L 05/05/19 06:40 Hct 33.0 % (35.4-49) L 05/05/19 06:40 MCV 88.4 fl (80-96) 05/05/19 06:40 MCHC 32.8 g/dl (32.0-35.9) 05/05/19 06:40 RDW 16.7 % (11.9-15.9) H 05/05/19 06:40 Plt Count 254 K/MM3 (134-434) 05/05/19 06:40 Sodium 141 mmol/L (136-145) 05/05/19 06:40 Potassium 3.8 mmol/L (3.5-5.1) 05/05/19 06:40 Chloride 106 mmol/L (98-107) 05/05/19 06:40 Carbon Dioxide 29 mmol/L (21-32) 05/05/19 06:40 Anion Gap 7 MMOL/L (8-16) L 05/05/19 06:40 BUN 5.6 mg/dL (7-18) L 05/05/19 06:40 Creatinine 1.0 mg/dL (0.55-1.3) 05/05/19 06:40 Random Glucose 79 mg/dL (74-106) 05/05/19 06:40 Calcium 8.6 mg/dL (8.5-10.1) 05/05/19 06:40 Blood Type A POSITIVE 04/29/19 11:30 Antibody Screen Negative 04/29/19 10:00 INR 1.06 (0.83-1.09) 04/29/19 10:00 CTA (05/06/19): There is a mild fusiform aneurysmal dilatation of the descending aorta (3.6 cm) adjacent to the posterior aortic arch. 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 Vascular consulted for 3.6cm AAA. Pt with aortic ectasia. No acute vascular intervention at this time Recommend bp control Continue statin if no contraindications Pt should f/u in [address] Scott office for surveillance duplex d/w attending Dr Meeks
--- NOTE | 2019-05-07 15:58 | PN ---
Progress Note (short form) - Note Progress Note: PULMONARY Denies shortness of breath, chest pain or palpitations. Saturating well on room air. Vital Signs Period Temp Pulse Resp BP Sys/Zuniga Pulse Ox Last 24 Hr 97.5 F-98.0 F 60-64 20-20 142-159/80-97 Gen: NAD in chair Heart: RRR Lung: decreased breath sounds at the bases Abd: soft, +ostomy Ext: no edema CBC, BMP 05/05/19 06:40 05/05/19 06:40 Active Medications Aspirin (Ecotrin -) 325 mg PO DAILY [facility] Last Admin: 05/07/19 09:30 Dose: 325 mg Enoxaparin Sodium (Lovenox -) 70 mg SQ BID [facility] Last Admin: 05/07/19 09:30 Dose: 70 mg Lactated Ringer's (Lactated Ringers Solution) 1,000 ml in 1,000 mls @ 75 mls/ hr IV ASDIR [facility] Last Admin: 05/07/19 11:20 Dose: 75 mls/hr Metoprolol Succinate (Toprol Xl -) 25 mg PO DAILY [facility] Last Admin: 05/07/19 09:30 Dose: 25 mg Ondansetron HCl (Zofran Injection) 4 mg IVPUSH Q8H PRN PRN Reason: NAUSEA Ondansetron HCl (Zofran Injection) 4 mg IVPUSH Q6H PRN PRN Reason: NAUSEA AND/OR VOMITING A/P Acute Pulmonary Emboli RLE DVT s/p L JJ stent removal HTN Hyperlipidemia Anemia - continue lovenox - can start Eliquis 10mg BID x 7 days then 5 mg BID for at least 3 months - monitor H/H - can d/c home from pulmonary standpoint
--- NOTE | 2019-05-07 21:54 | PN ---
Progress Note, Physician - Current Medication List Current Medications: Active Medications Aspirin (Ecotrin -) 325 mg PO DAILY [facility] Last Admin: 05/07/19 09:30 Dose: 325 mg Enoxaparin Sodium (Lovenox -) 70 mg SQ BID [facility] Last Admin: 05/07/19 09:30 Dose: 70 mg Lactated Ringer's (Lactated Ringers Solution) 1,000 ml in 1,000 mls @ 75 mls/ hr IV ASDIR [facility] Last Admin: 05/07/19 18:33 Dose: Not Given Metoprolol Succinate (Toprol Xl -) 25 mg PO DAILY [facility] Last Admin: 05/07/19 09:30 Dose: 25 mg Ondansetron HCl (Zofran Injection) 4 mg IVPUSH Q8H PRN PRN Reason: NAUSEA Ondansetron HCl (Zofran Injection) 4 mg IVPUSH Q6H PRN PRN Reason: NAUSEA AND/OR VOMITING - Objective Vital Signs: Vital Signs Temperature 97.5 F L 05/07/19 15:00 Pulse Rate 64 05/07/19 15:00 Respiratory Rate 20 05/07/19 15:00 Blood Pressure 158/86 05/07/19 15:00 O2 Sat by Pulse Oximetry (%) 99 05/06/19 09:00 Labs: CBC, BMP 05/05/19 06:40 05/05/19 06:40 INR, PTT INR 1.06 (0.83-1.09) 04/29/19 10:00 Problem List - Problems (1) Pulmonary embolus Code(s): I26.99 - OTHER PULMONARY EMBOLISM WITHOUT ACUTE COR PULMONALE (2) DVT (deep venous thrombosis) Code(s): I82.409 - ACUTE EMBOLISM AND THOMBOS UNSP DEEP VN UNSP LOWER EXTREMITY (3) Hydronephrosis Code(s): N13.30 - UNSPECIFIED HYDRONEPHROSIS (4) Colovesical fistula Code(s): N32.1 - VESICOINTESTINAL FISTULA (5) Vomiting Code(s): R11.10 - VOMITING, UNSPECIFIED (6) Anemia Code(s): D64.9 - ANEMIA, UNSPECIFIED (7) HTN (hypertension) Code(s): I10 - ESSENTIAL (PRIMARY) HYPERTENSION (8) Renal mass Code(s): N28.89 - OTHER SPECIFIED DISORDERS OF KIDNEY AND URETER
--- NOTE | 2019-05-08 08:37 | PN ---
Progress Note, Physician Chief Complaint: Nausea, Vomiting History of Present Illness: GI FOLLOW UP NOTES Patient examined and case discussed with Dr Hidalgo Patient denies further episodes of nausea and vomiting. Denies abdominal pain, diarrhea, constipation, melena. CA 19-9 negative. Abdominal MRI will be done as outpatient. - Current Medication List Current Medications: Active Medications Aspirin (Ecotrin -) 325 mg PO DAILY [facility] Last Admin: 05/07/19 09:30 Dose: 325 mg Enoxaparin Sodium (Lovenox -) 70 mg SQ BID [facility] Last Admin: 05/07/19 21:57 Dose: 70 mg Lactated Ringer's (Lactated Ringers Solution) 1,000 ml in 1,000 mls @ 75 mls/ hr IV ASDIR [facility] Last Admin: 05/07/19 18:33 Dose: Not Given Metoprolol Succinate (Toprol Xl -) 25 mg PO DAILY [facility] Last Admin: 05/07/19 09:30 Dose: 25 mg Ondansetron HCl (Zofran Injection) 4 mg IVPUSH Q8H PRN PRN Reason: NAUSEA Ondansetron HCl (Zofran Injection) 4 mg IVPUSH Q6H PRN PRN Reason: NAUSEA AND/OR VOMITING - Objective Vital Signs: Vital Signs Temperature 97.8 F 05/08/19 07:12 Pulse Rate 66 05/08/19 07:12 Respiratory Rate 20 05/08/19 07:12 Blood Pressure 132/78 05/08/19 07:12 O2 Sat by Pulse Oximetry (%) 97 05/07/19 21:00 Constitutional: Yes: No Distress, Calm Eyes: Yes: Conjunctiva Clear HENT: Yes: Atraumatic Cardiovascular: Yes: Regular Rate and Rhythm Respiratory: Yes: Regular, CTA Bilaterally Gastrointestinal: Yes: Normal Bowel Sounds, Soft, Other (colostomy) Neurological: Yes: Alert, Oriented Psychiatric: Yes: Alert, Oriented Labs: CBC, BMP 05/05/19 06:40 05/05/19 06:40 INR, PTT INR 1.06 (0.83-1.09) 04/29/19 10:00 Problem List - Problems (1) Acute gastric dilatation Assessment/Plan: -Surgery on board -Zofran PRN for nausea, vomiting -advance diet as tolerated Code(s): K31.0 - ACUTE DILATATION OF STOMACH (2) Vomiting Assessment/Plan: -Zofran PRN -advance diet as tolerated Code(s): R11.10 - VOMITING, UNSPECIFIED (3) Pancreatic cyst Assessment/Plan: -CA 19-9 1 -patient will need close follow up as outpatient for EUS -Abdominal and Pelvic CT scan shows 6.3 low density lesion within the body of the pancreas is noted which could represent a cystic neoplasm or simple cyst. -Previous MRI from 04/25/18 shows 6mm pancreatic rail cyst, PD measured 5mm, minimally prominent adjacent pancreatic side branch. Previous CA 19-9 normal at 4 and mildly elevated CEA at 4.8. After colonoscopy on 05/07/18 was instructed to follow up with Dr Tadeo for prominent duct and pancreatic cyst. Code(s): K86.2 - CYST OF PANCREAS
[2019-05-08] MEDS ORDERED: PT OWN MED DRAWER 7, Y5N ONE (09:42)
[2019-05-08] MEDS: ASPIRIN 325 MG ENTERIC COATED TABLET (FP) PO SCH (09:46)
[2019-05-08] MEDS: metoPROLOL SUCCINATE 25 MG TAB.SR.24H (FP) PO SCH (09:46)
[2019-05-08] MEDS: ENOXAPARIN NA (PORCINE) 80 MG/0.8 ML DISP.SYRIN SQ SCH (09:47)
--- NOTE | 2019-05-08 14:14 | PN ---
Progress Note (short form) - Note Progress Note: PULMONARY Denies shortness of breath, chest pain or palpitations. Saturating well on room air. Vital Signs Period Temp Pulse Resp BP Sys/Zuniga Pulse Ox Last 24 Hr 97.5 F-97.8 F 64-68 18-20 132-158/78-86 97 Gen: NAD in chair Heart: RRR Lung: decreased breath sounds at the bases Abd: soft, +ostomy Ext: no edema CBC, BMP 05/05/19 06:40 05/05/19 06:40 Active Medications Aspirin (Ecotrin -) 325 mg PO DAILY [facility] Last Admin: 05/08/19 09:46 Dose: 325 mg Enoxaparin Sodium (Lovenox -) 70 mg SQ BID [facility] Last Admin: 05/08/19 09:47 Dose: 70 mg Lactated Ringer's (Lactated Ringers Solution) 1,000 ml in 1,000 mls @ 75 mls/ hr IV ASDIR [facility] Last Admin: 05/07/19 18:33 Dose: Not Given Metoprolol Succinate (Toprol Xl -) 25 mg PO DAILY [facility] Last Admin: 05/08/19 09:46 Dose: 25 mg Ondansetron HCl (Zofran Injection) 4 mg IVPUSH Q8H PRN PRN Reason: NAUSEA Ondansetron HCl (Zofran Injection) 4 mg IVPUSH Q6H PRN PRN Reason: NAUSEA AND/OR VOMITING A/P Acute Pulmonary Emboli RLE DVT s/p L JJ stent removal HTN Hyperlipidemia Anemia - eliquis 10mg BID x 7 days then 5 mg BID for at least 3 months - monitor H/H - can d/c home from pulmonary standpoint
[2019-05-08 15:07] VITALS: BP 130/80; PULSE 67; TEMP 98
[2019-05-08] MEDS: LACTATED RINGERS SOLUTION 1,000 ML/1,000 ML INFUS.BAG IV SCH (16:11)
== END 2019-05-08 17:10 | disposition home or self-care (01) | DRG 987 ==
LOC: JER 08:22 → JERBED 11:18 → J8W 20:27
PROVIDERS: ADMIT Internal Medicine; ATTEND Internal Medicine
PROC: 0TP98DZ Removal of Intraluminal Device from Ureter, Via Natural or Artificial Opening Endoscopic (ICD-10-PCS; 2019-05-02)
PROC: 0T9B8ZX Drainage of Bladder, Via Natural or Artificial Opening Endoscopic, Diagnostic (ICD-10-PCS; principal; 2019-05-02 14:00)
PROC: 0T7C8ZZ Dilation of Bladder Neck, Via Natural or Artificial Opening Endoscopic (ICD-10-PCS; 2019-05-02 14:00)
DX: K31.0 Acute dilatation of stomach (principal); K68.12 Psoas muscle abscess; I26.99 Other pulmonary embolism without acute cor pulmonale; N32.1 Vesicointestinal fistula; N13.30 Unspecified hydronephrosis; I82.401 Acute embolism and thrombosis of unspecified deep veins of right lower extremity; K86.2 Cyst of pancreas; M62.89 Other specified disorders of muscle; R11.2 Nausea with vomiting, unspecified; Z87.891 Personal history of nicotine dependence; Z93.3 Colostomy status; I10 Essential (primary) hypertension; E78.5 Hyperlipidemia, unspecified; I77.819 Aortic ectasia, unspecified site; D64.9 Anemia, unspecified
CPT/HCPCS: 36415; 71046-TC-FY; 71275-TC; 74177-TC; 76000-TC-FY; 76775-TC; 76856-TC; 80053; 81003; 83605; 83690; 83735; 84484; 85025; 85610; 85730; 86301; 86850; 86900; 86901; 87086; 88108; 88300-TC; 93005; 93010; 93970-TC; 94760; 99284-25; G0008; J1644; J7030; Q2036; Q9967

== ENCOUNTER 2020-04-28 17:44 | Emergency (ER) | payer OTHER, BC ==
[2020-04-28 18:46] VITALS: TEMP 98.3; BMI 28.1
--- OUTSIDE RECORDS SUMMARY | 2020-04-28 19:04 | XMS ---
:1950 Author Organization [facility] Support Name Relationship Address Phone RE Unavailable Unavailable Unavailable [address] [phone] [place] [address] Re-disclosure Warning The records that you are about to access may contain information from federally- assisted alcohol or drug abuse programs. If such information is present, then the following federally mandated warning applies: This information has been disclosed to you from records protected by federal confidentiality rules (42 CFR part 2). The federal rules prohibit you from making any further disclosure of this information unless further disclosure is expressly permitted by the written consent of the person to whom it pertains or as otherwise permitted by 42 CFR part 2. A general authorization for the release of medical or other information is NOT sufficient for this purpose. The Federal rules restrict any use of the information to criminally investigate or prosecute any alcohol or drug abuse patient.The records that you are about to access may contain highly sensitive health information, the redisclosure of which is protected by Article 27-F of the [facility] Public Health law. If you continue you may haveaccess to information: Regarding HIV / AIDS; Provided by facilities licensed or operated by the [facility] Office of Mental Health; or Provided by the [facility] Office for People With Developmental Disabilities. If such information is present, then the following [facility] mandated warning applies: This information has been disclosed to you from confidential records which are protected by state law. State law prohibits you from making any further disclosure of this information without the specific written consent of the person to whom it pertains, or as otherwise permitted by law. Any unauthorized further disclosure in violation of state law may result in a fine or long-term sentence or both. A general authorization for the release of medical or other information is NOT sufficient authorization for further disclosure. Insurance Providers Payer name Policy type Policy ID Covered Covered alliance party's Policy P hernán / Coverage alliance party ID relationship to [employer] ormation type [place] BC PPO [id number] SP [id number] MEDICARE [id number] SP [id number] MEDICARE [id number] SP [id number] Results ID Date Data Source [id number] 04/05/2020 01:57:00 PM EDT [facility] Name Value Range Interpretation Description Data Sup porting Code Source(s) Document(s ) 2018 Novel [facility] Coronavirus RNA Interpretation Unspecified Specimen Qualitative LOREN Probe Detection This lab was ordered by [facility] and reported by [facility]. ID Date Data Source [id number] 04/03/2020 07:36:00 AM EDT [facility] Name Value Range Interpretation Description Data Sup porting Code Source(s) Document(s ) 2019 Novel [facility] Coronavirus RNA Interpretation Unspecified Specimen Qualitative LOREN Probe Detection This lab was ordered by [facility] and reported by [facility]. Procedure
--- NOTE | 2020-04-28 20:02 | PDOC ---
History of Present Illness - General Chief Complaint: Urinary Catheter Problem Stated Complaint: PAIN Time Seen by Provider: 04/28/20 19:34 - History of Present Illness Initial Comments: 04/28/20 20:02 HPI: 70 y/o M with hx of HTN, HLD, diverticulitis s/p bowel resection and end colostomy s/p recent reverse colostomy with diverting ileostomy and manzo placement on 04/07/20 presenting with leaking around manzo after a cystogram today. He reported a normal and uncomplicated cystogram but following the procedure he had urine leaking around manzo and since then hasnt had any urine in the manzo bag. He he reported a transient episode of burning penile pain and left flank pain that self resolved without intervention. He denies fever, chills, chest pain, SOB, abd pain. He has a f/u appt with Dr Brizuela of urology tomorrow PMHx: as noted above ROS: as noted SHx: Denies tobacco use; no alcohol use; no rec drugs Allergies: NKDA ROS: GENERAL/CONSTITUTIONAL: No fever or chills. No weakness. HEAD, EYES, EARS, NOSE AND THROAT: No change in vision. No ear pain or discharge. No sore throat. CARDIOVASCULAR: No chest pain or shortness of breath RESPIRATORY: No cough, wheezing, or hemoptysis. GASTROINTESTINAL: No nausea, vomiting, diarrhea or constipation. GENITOURINARY: +manzo MUSCULOSKELETAL: No joint or muscle swelling or pain. No neck or back pain. SKIN: No rash NEUROLOGIC: No headache, vertigo, loss of consciousness, or change in strength/sensation. ENDOCRINE: No increased thirst. No abnormal weight change HEMATOLOGIC/LYMPHATIC: No anemia, easy bleeding, or history of blood clots. ALLERGIC/IMMUNOLOGIC: No hives or skin allergy. PE: GENERAL: Awake, alert, and fully oriented, no acute distress HEAD: No signs of trauma, normocephalic, atraumatic EYES: EOMI, sclera anicteric, conjunctiva clear ENT: Auricles normal inspection, hearing grossly normal, nares patent, oropharynx clear without exudates. Moist mucosa NECK: Normal ROM, no lymphadenopathy LUNGS: No increased work of breathing, symmetrical chest rise, clear to auscultation bilaterally, no wheezes, crackles or rhonchi HEART: Regular rate, regular rhythm, normal S1 and S2, no murmur, peripheral pulses 2+ and equal bilaterally. ABDOMEN: midline exlap wound with emil intact and no erythema, wound edges intact, Soft, nondistended, nontender. No guarding, no rebound. No masses. No CVAT : manzo in place MUSCULOSKELETAL: FROM NEUROLOGICAL: Cranial nerves II through XII grossly intact. Normal speech, stable gait, no focal sensorimotor deficits SKIN: Warm, Dry, normal turgor, no rashes or lesions noted Past History - Medical History Allergies/Adverse Reactions: Allergies Allergy/AdvReac Type Severity Reaction Status Date / Time No Known Allergies Allergy Verified 04/29/19 10:12 Home Medications: Ambulatory Orders Aspirin Coated [Ecotrin -] 325 mg PO DAILY 11/29/16 Apixaban [Eliquis] 5 mg PO BID #60 tablet 05/08/19 Apixaban [Eliquis] 10 mg PO BID #14 tablet 05/08/19 Metoprolol Succinate [Toprol XL -] 25 mg PO DAILY #30 tab.sr.24h 05/08/19 COPD: No Diabetes: Yes (BORDERLINE - NO MED) HTN: Yes Hypercholesterolemia: Yes Kidney Stones: Yes (lt renal stent) - Surgical History Abdominal Surgery: Yes (REPAIR OF UMBILICAL HERNIA) Orthopedic Surgery: Yes (LT KNEE ARTHROSCOPY) - Immunization History Immunization Up to Date: No - Psycho-Social/Smoking History Smoking History: Former smoker Have you smoked in the past 12 months: No If you are a former smoker, when did you quit?: 35 YRS AGO Information on smoking cessation initiated: No - Substance Abuse Hx (Audit-C & DAST Scrn) How often the patient has a drink containing alcohol: Monthly or less Number of drinks the patient has on a typical day: 1 or 2 How often the patient has six or more drinks on one occasion: Never Score: In Men: 4 or > Positive; In Women: 3 or > Positive: 1 Screen Result (Pos requires Nsg. Audit-10AR): Negative In the last yr the pt used illegal drug/Rx for NonMed reason: No Score: Yes response is considered Positive: 0 Screen Result (Positive result requires Nsg. DAST-10): Negative *Physical Exam - Vital Signs Last Vital Signs Temp Pulse Resp BP Pulse Ox 98.3 F 95 H 20 90/67 99 04/28/20 18:43 04/28/20 18:43 04/28/20 18:43 04/28/20 18:43 04/28/20 18:43 Medical Decision Making - Medical Decision Making 04/28/20 20:20 70 y/o M with hx of HTN, HLD, diverticulitis s/p bowel resection and end colostomy s/p recent reverse colostomy with diverting ileostomy and manzo placement on 04/07/20 presenting with leaking around manzo after a cystogram today. VSS, AF. PE unremarkable -ua, ucx -replace manzo -reassess 04/28/20 22:02 manzo placed without complication; return of urine into manzo leg bag POCUS demonstrated known right kidney cyst; manzo balloon demonstrated in bladder will DC patient with instructions for callback of ucx patient agreeable with plan Discharge - Discharge Information Problems reviewed: Yes Clinical Impression/Diagnosis: Manzo catheter problem Qualifiers: Encounter type: initial encounter Qualified Code(s): T83.9XXA - Unspecified complication of genitourinary prosthetic device, implant and graft, initial encounter Condition: Stable Disposition: HOME - Follow up/Referral Referrals: Ricky Jennings MD [Primary Care Provider] - - Patient Discharge Instructions Patient Printed Discharge Instructions: How to Care for Your Manzo Catheter -- Male Additional Instructions: Additional Instructions: Please return to the emergency department with any new or worsening symptoms or concerns. Please follow up with your urologist tomorrow for your appointment with Dr Brizuela Please continue taking your medications and followup with your PCP for all other issues - Post Discharge Activity
--- NOTE | 2020-04-28 20:24 | PDOC ---
Documentation entered by Lainey Marsh SCRIBE, acting as scribe for Polina Foley DO. Polina Foley DO: This documentation has been prepared by the casey, Lainey Marsh SCRIBE, under my direction and personally reviewed by me in its entirety. I confirm that the documentation accurately reflects all work, treatment, procedures, and medical decision making performed by me. Attending Attestation - Resident Resident Name: Jimi Nazario - ED Attending Attestation I have performed the following: I have examined & evaluated the patient, The case was reviewed & discussed with the resident, I agree w/resident's findings & plan, Exceptions are as noted - HPI HPI: 04/28/20 19:47 Patient is a 70 year old male with a significant past medical history of hypertension, hyperlipidemia, diverticulitis (s/p bowel resection), and end colostomy (s/p reverse colostomy), who presents to the ED with leaking around manzo after cystogram today. Patient also reported penile and left flank pain which felt like a "burning sensation" and was resolved on its own. Patient denies: fever, chills, SOB, chest pain, abdominal pain, or any other related symptoms Allergies: NKDA - Physicial Exam PE: 04/28/20 20:18 Gen: aaox3, nad heart: +s1s2 reg lungs: cta b/l abd: soft, emil for ex-lap in place, well healing, no drainage, no redness, incision site to RLQ with bandaid in place, ostomy to LLQ with bag in place and yellow/brown stool, no abd ttp gu: manzo in place, 20f, drainage around the manzo at the meatus, no bleeding, leg bag empty ext: no c/c/e - Medical Decision Making 04/28/20 20:21 a/p: 70yo male with manzo problem -suspect manzo is dislodged or clogged -will exchange the manzo -pt also asking for a change in his ostomy site bag -no pain in the lower abd -will send ua/ucx -had cysto today with urology at [facility] -has appt with [facility] surgeon and urology for tomorrow morning 04/28/20 21:39 catheter has been replaced ostomy bag replaced 04/28/20 22:00 pt feeling better bedside ultrasound shows manzo balloon in place cyst to R kidney, known cyst no hydro stable for dc to home following up with urology tomorrow Discharge - Discharge Information Problems reviewed: Yes Clinical Impression/Diagnosis: Manzo catheter problem Qualifiers: Encounter type: initial encounter Qualified Code(s): T83.9XXA - Unspecified complication of genitourinary prosthetic device, implant and graft, initial encounter Condition: Stable Disposition: HOME - Admission No - Follow up/Referral Referrals: Ricky Jennings MD [Primary Care Provider] - - Patient Discharge Instructions Patient Printed Discharge Instructions: How to Care for Your Manzo Catheter -- Male Additional Instructions: Additional Instructions: Please return to the emergency department with any new or worsening symptoms or concerns. Please follow up with your urologist tomorrow for your appointment with Dr Brizuela - Post Discharge Activity
[2020-04-28 22:07] LABS: EPI CELLS >36 /uL (0-25.1); HYALINE CASTS 75 /uL (0-3.1); PH,URINE 5.5 (5.0-8.0); URINE APPEARANCE TURBID; URINE BACTERIA 3872 /uL (0-1359); URINE BILIRUBIN 1+ (NEGATIVE); URINE COLOR DK YELLOW; URINE GLUCOSE (UA) NEGATIVE (NEGATIVE); URINE KETONE TRACE (NEGATIVE); URINE LEUK ESTERASE 2+ (NEGATIVE); URINE NITRITE NEGATIVE (NEGATIVE); URINE PROTEIN 3+ (NEGATIVE); URINE RBC 7606 /uL (0-23.9); URINE UROBILINOGEN 0.2 mg/dL (0.2-1.0); URINE WBC 13023 /uL (0-25.8)
[2020-04-29 02:38] VITALS: BP 121/86; PULSE 92
== END 2020-04-28 22:35 | disposition home or self-care (01) ==
LOC: JER 17:44
DX: T83.9XXA Unspecified complication of genitourinary prosthetic device, implant and graft, initial encounter (principal)
CPT/HCPCS: 81003; 87086; 87186; 99284-25